=== PATIENT | female | born 1935 | race Caucasian/White ===

== ENCOUNTER 2021-09-26 09:03 | Outpatient (CLI) | payer OTHER, SELFPAY ==
[2021-09-26 10:24] LABS: Influenza A QL RT-PCR Negative (Negative); Influenza B QL RT-PCR Negative (Negative); SARS-CoV-2 RNA PCR Negative (Negative)
== END 2021-09-26 09:04 | disposition home or self-care (01) ==
LOC: CHSLAB 09:07
PROVIDERS: PCP Internal Medicine; Visit Provider Internal Medicine
DX: R68.89 Other general symptoms and signs (principal); Z20.822 Contact with and (suspected) exposure to COVID-19
CPT/HCPCS: 87502; C9803; U0003; U0005

== ENCOUNTER 2021-11-08 09:36 | Emergency (ER) | payer OTHER, SELFPAY ==
[2021-11-08] VITALS (51 sets, daily range): BP systolic 151–194; BP diastolic 61–86; PULSE 63–90; RESP 14–34; TEMP 36.3; O2SAT 95–100
--- NOTE | ~2021-11-08 | XR_ITS ---
EXAMINATION: XR chest 1V portable DATE: 11/08/2021 10:08 INDICATION: Stroke. TECHNIQUE: A single frontal view of the chest was obtained on 2 radiographs. COMPARISON: Chest single view 12/06/2018, CT abdomen and pelvis 07/01/2014 FINDINGS: There is mild scarring in left midlung zone. No pleural effusion or pneumothorax. The heart size is normal. Median sternotomy wires and mediastinal surgical clips are seen, likely from prior c oronary artery bypass grafting. IMPRESSION: 1. Mild scarring in left midlung zone. Reviewed, dictated and finalized at location A.
--- NOTE | ~2021-11-08 | CT_ITS ---
EXAMINATION: CT brain wo con DATE: 11/08/2021 09:44 INDICATION: Stroke. TECHNIQUE: Computed tomography (CT) of the head was performed without intravenous contrast. The mA wa s adjusted according to patient size. Iterative reconstruction technique was employed. The dose-lengt h product was 605.33 mGy-cm. COMPARISON: Head CT 12/06/2018 FINDINGS: There are scattered areas of low attenuation in the cerebral white matter. There is no intr acranial hemorrhage, acute infarction, or abnormal intracranial mass lesion. The ventricles are nathan l in size. There is mucosal thickening in the paranasal sinuses. There is thickening and sclerosis of the adams of left frontal sinus, consistent with chronic sinusitis. There are likely changes of ocul ar lens replacement surgeries. The mastoid air cells are normal. IMPRESSION: 1. Worsened extensive nonspecific cerebral white matter disease, which likely represents chronic smal l vessel ischemic disease. 2. Chronic sinusitis. Reviewed, dictated and finalized at location A. IMPRESSION: 1. Worsened extensive nonspecific cerebral white matter disease, which likely r epresents chronic small vessel ischemic disease. 2. Chronic sinusitis.
--- NOTE | 2021-11-08 09:36 | ECG_ITS ---
Measurements Intervals [place] Rate: 73 P: 68 NH: 191 QRS: -29 QRSD: 148 T: 122 QT: 474 QTc: 524 Interpretive Statements SINUS RHYTHM WITH OCCASIONAL SUPRAVENTRICULAR PREMATURE COMPLEXES LEFT BUNDLE BRANCH BLOCK ABNORMAL ECG COMPARED TO ECG 12/07/2018 10:20:42 HEART RATE HAS INCREASED Electronically Signed On 11-08-2021 12:50:12 CDT by Marlo Marroquin M.D.
[2021-11-08 10:00] LABS: Basophils Absolute Auto 0.1 K/mm3 (0.0-0.1); Basophils Percent Auto 0.7 % (0.2-1.2); Eosinophils Absolute Auto 0.1 K/mm3 (0-0.3); Eosinophils Percent Auto 1.5 % (0-4.4); Hematocrit 45.1 % (37.0-47.0); Hemoglobin 14.9 g/dL (12.0-15.0); Immature Granulocyte Absolute 0.01 K/mm3 (0.00-0.031); Immature Granulocyte Percent A 0.1 % (0-0.5); Lymphocytes Absolute Auto 2.06 K/mm3 (0.9-3.2); Lymphocytes Percent Auto 28.2 % (18.3-44.2); Mean Corpuscular Hemoglobin 30.8 pg (26-34); Mean Corpuscular Volume 93.2 fl (80-100); Mean Platelet Volume 9.7 fl (7.4-10.4); Monocytes Absolute Auto 0.8 K/mm3 (0.1-0.6); Monocytes Percent Auto 11.4 % (2.6-8.5); Neutrophils Absolute Auto 4.3 K/mm3 (1.3-6.7); Neutrophils Percent Auto 58.1 % (45.5-73.1); Platelet Count Result 247 k/mm3 (150-375); Red Blood Count 4.84 M/mm3 (4.2-5.4); Red Cell Distribution Width 13.3 % (11.5-14.5); White Blood Count 7.3 K/mm3 (4.5-10.0)
--- NOTE | 2021-11-08 10:03 | ED.NEUROSD ---
HPI - Neuro Symptoms/Deficit General Chief Complaint: Suspected CVA Stated Complaint: ?cva Source: RN notes reviewed History of Present Illness HPI Narrative: Patient presents emergency department from home for possible CVA. Patient states that she is getting ready to go eat with her sister and go shopping she states at that time she began develop some loss of vision over the left side she states that she then got numbness around her lips and then began to have shaking at that time she had looked up her symptoms and called EMS to transport her for further evaluation. The patient states that this time the vision has resolved and the numbness is resolved she denies any numbness or weakness of any of the extremities she still does have a mild stutter which she says is new she denies any fevers or chills chest pain shortness of breath abdominal pain nausea or vomiting. The patient states she is on aspirin and Plavix and did take it this morning does live by herself she states that symptoms started sometime between 730 and 8 AM Related Data Home Medications Medication Instructions Recorded Confirmed irbesartan 300 mg tablet 300 mg PO DAILY 02/20/19 03/09/21 Allergies Allergy/AdvReac Type Severity Reaction Status Date / Time oxycodone Allergy Mild NIGHTMARES Verified 11/08/21 10:27 Review of Systems Review of Systems: Gen.: Denies fevers or chills Eyes: See HPI ENT: Denies congestion Respiratory: Denies shortness of breath or cough CV: Denies chest pain or palpitations GI: Denies abdominal pain nausea, emesis or diarrhea Musculoskeletal: Denies back pain or muscle pain Neuro: See HPI Skin: Denies rash Except as documented, all other systems reviewed and negative [facility] Past Medical History Medical History Hyperlipidemia Family History Family History Sibling Patient's sister is in good health Family history of malignant melanoma Other Hypertension Social History Social History Smoking status: Never smoker Alcohol intake: never Substance use: never Exam Narrative: APPEARANCE: No acute distress, nontoxic, resting in bed HEENT: Normocephalic, atraumatic, OMM, EYES: PERRL, EOMI visual celeste intact NECK: Supple, nontender, full range of motion without pain, no meningismus RESPIRATORY: No respiratory distress, clear to auscultation bilaterally with no rhonchi wheezing or rales CARDIOVASCULAR: RRR s murmur ABDOMINAL: Soft, nontender, nondistended MUSCULOSKELETAL: Moves all extremities. No clubbing, cyanosis or edema. NEURO: A and O ?4, following commands, mild stutter but otherwise no slurring of the speech, cranial nerves II through XII grossly intact,muscle strength 5 out of 5 bilateral upper and lower extremities, no pronator drift, SKIN:: Warm, dry. Normal Color PSYCHIATRIC: Normal affect/mood Course Course Emergency Course: Patient will get up and ambulate to the restroom with no difficulty Called and discussed with Dr. Villatoro for neurology at [facility]. Discussed the patient's symptoms at this time in agreement that the patient is not a tPA candidate as the patient is on aspirin and Plavix and symptoms of almost completely resolved except for nondebilitating symptom of mild stutter with speaking. Does accept patient to [facility] under Dr. Spain Care will be turned over to Dr. Kumar at shift change awaiting bed placement at [facility] Vital Signs Vital signs: Vital Signs Temperature 97.3 F L 11/08/21 09:54 Pulse Rate 73 11/08/21 09:54 Respiratory Rate 18 11/08/21 09:54 Blood Pressure 194/80 H 11/08/21 09:54 Pulse Oximetry 100 11/08/21 09:54 Oxygen Delivery Room Air 11/08/21 09:54 Temperature 97.3 F L 11/08/21 09:54 Pulse Rate 69 11/08/21 15:45 Respiratory Rate 21 H 11/08/21 15:45 Bloo
[2021-11-08 10:13] LABS: Alanine Aminotransferase 20 U/L (6-35); Albumin Level 4.9 g/dL (3.5-5.1); Alkaline Phosphatase 128 U/L (38-126); Anion Gap 10 mmol/L (8-16); Aspartate Amino Transferase 29 U/L (14-36); Bilirubin,Total 0.9 mg/dL (0.2-1.3); Blood Urea Nitrogen 30 mg/dL (7-17); Calcium 9.8 mg/dL (8.4-10.2); Carbon Dioxide 27 mmol/L (22-30); Chloride 102 mmol/L (98-107); Estimated CRCL calculation 27 ml/min; Estimated Glomerular Filt Rate 36; Glucose 125 mg/dL (65-110); Potassium 4.8 mmol/L (3.4-5.0); Prothrombin Time 12.6 Seconds (11.1-14.7); Sodium 139 mmol/L (137-145)
[2021-11-08 10:14] LABS: Partial Thromboplastin Time 31.4 SECONDS (22.3-36.8)
[2021-11-08 10:23] LABS: Troponin I < 0.012 ng/mL (0.000-0.034)
--- NOTE | 2021-11-08 10:23 | PC.NURSE ---
Dr. Santana at bedside to update patient and family on results and plan of care.
--- NOTE | 2021-11-08 10:47 | PC.NURSE ---
Patient information provided to [facility]. Requesting COVID result. Will call back with results. ext. [phone]
[2021-11-08 11:13] LABS: NT Pro B Type Natriuretic Pept 1570 pg/mL (5-100)
[2021-11-08 11:20] LABS: SARS-CoV-2 RNA PCR Negative
--- NOTE | 2021-11-08 11:22 | PC.NURSE ---
Patient report given to NOELLE Vega. All questions answered and care of patient transferred.
--- NOTE | 2021-11-08 22:53 | PC.NURSE ---
RN spoke with Access [facility] no beds at this time. Update with any patient status changes. Will call with any updates.
[2021-11-09] VITALS (18 sets, daily range): BP systolic 146–155; BP diastolic 63–73; PULSE 55–84; RESP 13–20; TEMP 36.6; O2SAT 94–99
--- NOTE | 2021-11-09 05:27 | PC.NURSE ---
[facility] here.
== END 2021-11-09 05:33 | disposition short-term general hospital (02) ==
PROVIDERS: Emergency Provider Emergency Medicine; PCP Family Medicine
DX: I63.9 Cerebral infarction, unspecified (principal); Z20.822 Contact with and (suspected) exposure to COVID-19; E78.5 Hyperlipidemia, unspecified; R94.31 Abnormal electrocardiogram [ECG] [EKG]; R29.701 NIHSS score 1; Z79.02 Long term (current) use of antithrombotics/antiplatelets
CPT/HCPCS: 36415; 70450; 71045; 80053; 83880; 84484; 85025; 85610; 85730; 93005; 99285; C9803; U0003; U0005

== ENCOUNTER 2022-10-22 03:03 | Day surgery (SDC) | payer OTHER, SELFPAY ==
[2022-10-22] VITALS (9 sets, daily range): BP systolic 147–179; BP diastolic 43–70; PULSE 43–60; RESP 16–20; TEMP 36.6; O2SAT 93–99; BMI 28.8
[2022-10-22 08:37] LABS: Basophils Percent Auto 0.5 % (0.2-1.2); Eosinophils Absolute Auto 0.2 K/mm3 (0-0.3); Eosinophils Percent Auto 1.9 % (0-4.4); Hematocrit 44.1 % (37.0-47.0); Hemoglobin 14.3 g/dL (12.0-15.0); Immature Granulocyte Absolute 0.02 K/mm3 (0.00-0.031); Immature Granulocyte Percent A 0.2 % (0-0.5); Lymphocytes Percent Auto 20.5 % (18.3-44.2); Mean Corpuscular HGB Conc 32.4 g/dl (32-36); Mean Corpuscular Hemoglobin 30.3 pg (26-34); Mean Corpuscular Volume 93.4 fl (80-100); Mean Platelet Volume 10.1 fl (7.4-10.4); Monocytes Percent Auto 10.9 % (2.6-8.5); Neutrophils Absolute Auto 5.8 K/mm3 (1.3-6.7); Platelet Count Result 280 k/mm3 (150-375); Red Blood Count 4.72 M/mm3 (4.2-5.4); Red Cell Distribution Width 13.5 % (11.5-14.5); White Blood Count 8.8 K/mm3 (4.5-10.0)
[2022-10-22 08:47] LABS: Anion Gap 8 mmol/L (8-16); Blood Urea Nitrogen 32 mg/dL (7-17); Calcium 9.8 mg/dL (8.4-10.2); Carbon Dioxide 28 mmol/L (22-30); Chloride 105 mmol/L (98-107); Estimated CRCL calculation 24 ml/min; Estimated Glomerular Filt Rate 33; Glucose 116 mg/dL (65-110); Potassium 3.9 mmol/L (3.4-5.0); Sodium 141 mmol/L (137-145)
--- NOTE | 2022-10-22 09:20 | SUR.PREOP ---
DR. RICHARD HERE TO SEE PT PRE PROCEDURE. NOTIFIED HIM OF CREAT LEVEL. . TO BEDSIDE TO SEE PT AND FAMILY.
--- NOTE | 2022-10-22 09:32 | WPDMODSED ---
Moderate Sedation Note-Pt Data Patient Data Diagnosis: exertional shortness of breath abnormal nuclear stress test previous surgery for hypertrophic cardiomyopathy Present Complaint: PATRICK Procedure to be performed/Plan: left heart catheterization Allergies Allergy/AdvReac Type Severity Reaction Status Date / Time acetaminophen [From Percocet] AdvReac Hallucinati Verified 10/22/22 08:29 ng oxycodone [From Percocet] AdvReac Hallucinati Verified 10/22/22 08:29 ng Home Medications Medication Instructions Recorded Confirmed Type aspirin 81 mg tablet,delayed 81 mg PO DAILY 11/16/21 10/22/22 History release (Adult Low Dose Aspirin) amlodipine 10 mg tablet See Rx Instructions .Route 07/09/22 10/22/22 Rx .COMPLEX #90 tabs clopidogrel 75 mg tablet 75 mg PO DAILY #90 tabs 07/09/22 10/22/22 Rx pravastatin 20 mg tablet 20 mg PO DAILY #90 tabs 07/09/22 10/22/22 Rx triamcinolone acetonide 0.1 % 1 applic topical BID #80 grams 09/25/22 10/19/22 Rx topical cream metoprolol tartrate 50 mg tablet 50 mg PO DAILY 10/19/22 10/22/22 History Current Medications: Active Medications Sodium Chloride (Normal Saline Iv) 500 mls @ 100 mls/hr IV CONT .Q5H KAYLENE Sedation/Anesthesia: No previous sedation/anesthesia problems (including family history). [facility] Past Medical History Medical History CVA (cerebral vascular accident) Hyperlipidemia Family History Family History Sibling Patient's sister is in good health Family history of malignant melanoma Other Hypertension Social History Social History Social History: Caffeine-occasional coffee/soda Smoking status: Never smoker Alcohol intake: never Substance use: never Substance use type: does not use Lack of Transportation: No Lack of Food: Never True Current Housing: I Have Housing Concerned About Future Housing: No Difficulty Paying Gas/Electric Bills: No Difficulty Paying for Meds: No Currently Unemployed: No Education: Associate Degree Difficulty w/ Childcare or Family Care: No Living arrangements: alone Spiritual care concerns: No Mod Sed Physical Exam Physical Exam Pre Procedural Exam: Normal: Appearance, Neck, Throat, Airway, Lungs, Heart Size ( S4 gallop is audible), Heart Rate, Heart Rhythm, Neuro Exam and Extremities Hours since solid foods: 12 Hours since liquid intake: 12 Mallampati Classification: class II Internal Medicine - PN: Obj Da Vital Signs Vital Signs: Vital Signs - 24 hr 10/22/22 08:49 Temperature 36.6 C Pulse Rate 56 L Respiratory Rate 16 Blood Pressure 179/64 H Pulse Oximetry 98 Oxygen Delivery Room Air Meds/Results Medications: Active Medications Generic Name Dose Route Start Last Admin Trade Name Freq PRN Reason Stop Dose Admin Sodium Chloride 500 mls @ 100 mls/hr 10/22/22 08:30 Normal Saline Iv IV CONT .Q5H KAYLENE Labs 10/22/22 08:28 10/22/22 08:28 Labs: Laboratory Results - last 24 hr 10/22/22 08:28 WBC 8.8 RBC 4.72 Hgb 14.3 Hct 44.1 MCV 93.4 MCH 30.3 MCHC 32.4 RDW 13.5 Plt Count 280 MPV 10.1 Immature Gran % (Auto) 0.2 Neut % (Auto) 66.0 Lymph % (Auto) 20.5 [place]oux % (Auto) 10.9 H Eos % (Auto) 1.9 Baso % (Auto) 0.5 Lymph # (Auto) 1.80 [place] # (Auto) 1.0 H Eos # (Auto) 0.2 Baso # (Auto) 0.0 Abs Immat Gran (auto) 0.02 Absolute Neuts (auto) 5.8 Absolute Nucleated RBC 0.0 Nucleated RBC % 0.0 Sodium 141 Potassium 3.9 Chloride 105 Carbon Dioxide 28 Anion Gap 8 BUN 32 H Creatinine 1.50 H Estim Creat Clear Calc 24 Estimated GFR 33 L Glucose 116 H Calcium 9.8 ASA Classification/Sedation ASA Classification/Sedation ASA Class: II Emergent: No Risks: Risks, benefits and alternatives explained and patient/f
--- NOTE | 2022-10-22 10:24 | P.PCNCC_ITS ---
Cardiac Cath Procedure Note Date of procedure:: 10/22/22 Performing physician:: Junior Gaviria MD Indication:: Exertional shortness of breath abnormal stress test Brief clinical history:: this is an 86-year-old woman with complaints of exertional shortness of breath. A recent nuclear stress test has demonstrated evidence of anterior ischemia. She has a history of previous septal myectomy and coronary bypass. She has been doing very well clinically. A follow-up catheterization previously done back in 2009 demonstrated no evidence of coronary disease and a occluded graft to the LAD. Procedure Procedure performed:: Left ventriculogram coronary angiogram Angio-Seal to right femoral artery Sedation/Medication given:: fentanyl 25 mg Versed 2 mg case start time 10:00 a.m. case end time 10:16 a.m. sedation provided by Crys Renner RN, trained observer Access site:: right femoral artery Estimated blood loss:: 25 cc Procedure note:: patient was brought to the cardiac catheterization lab postabsorptive state where the right femoral triangle was prepared and draped in the usual fashion. Anesthesia was provided with 1% lidocaine infiltrated locally. Using the modified Seldinger technique 5 Malagasy sheath was placed into the right common femoral artery. After this left heart catheterization was carried out. I used a 5 Malagasy angled pigtail catheter to measure left-sided hemodynamics and inject LV g in the 30 degree MAN projection. A careful pullback was done into the aorta to assess for LVOT gradient. Following this the left coronary was engaged and injected using a 5 Malagasy FL4 catheter the right coronary was engaged and injected using a standard 5 Malagasy JR4 catheter. The vein graft to the LAD is known to be totally occluded from previous angiogram and was not reinjected during this exam. Findings:: Hemodynamics: Central aortic pressure is 166 over 50 left ventricle 166/10 end-diastolic 26. Pullback demonstrated no gradient from the LV body to the aorta Left ventricle: The LV is of normal size all segments contract well there were no regional wall motion abnormalities and global ejection fraction is 60- 65%. the left main coronary artery is nicely patent the left anterior descending is a medium caliber artery extending down to around the apex. The LAD has free of significant disease. The remnant of a previously placed graft to seen in the mid LAD with some mild back filling from the LAD into the distal portion of the graft there was no competitive flow from the graft as it is known to be occluded from previous angiography. The circumflex is a medium caliber artery giving rise to the marginal branches and a posterior branch the circumflex is angiographically free of disease. The right coronary artery is large caliber and dominant to the posterior circulation the right coronary artery is angiographically free of disease. Conclusion:: 1. Right coronary dominant circulation with no angiographic evidence of ischemic heart disease. 2. Previously placed vein graft to the LAD is once again noted however is known to be occluded on previous angiography. The distal stump of this can be seen on left coronary injection 3. normal left ventricular systolic function 4. systemic hypertension 5. false-positive nuclear stress test Junior Garcia MD [facility]
== END 2022-10-22 13:45 | disposition home or self-care (01) ==
PROVIDERS: PCP Family Medicine; Visit Provider Specialist
PROC: 4A023N7 Measurement of Cardiac Sampling and Pressure, Left Heart, Percutaneous Approach (ICD-10-PCS; CPT 93452; principal; 2022-10-22 10:00)
DX: R94.39 Abnormal result of other cardiovascular function study (principal); R06.02 Shortness of breath; I25.10 Atherosclerotic heart disease of native coronary artery without angina pectoris; I10 Essential (primary) hypertension; Z86.73 Personal history of transient ischemic attack (TIA), and cerebral infarction without residual deficits; E78.5 Hyperlipidemia, unspecified; Z79.82 Long term (current) use of aspirin; I42.1 Obstructive hypertrophic cardiomyopathy; Z79.02 Long term (current) use of antithrombotics/antiplatelets; Z95.1 Presence of aortocoronary bypass graft
CPT/HCPCS: 36415; 80048; 85025; 93458; C1760; C1887; C1894; G0269; J1644; J2250; J3010; J7040

== ENCOUNTER 2022-12-28 09:31 | Emergency (ER) | payer OTHER, SELFPAY ==
[2022-12-28] VITALS (8 sets, daily range): BP systolic 110–167; BP diastolic 46–89; PULSE 60–99; RESP 15–20; TEMP 36.5–36.7; O2SAT 96–100
--- NOTE | ~2022-12-28 | CT_ITS ---
EXAMINATION: CT abdomen pelvis w con INDICATION: Left lower quadrant and left hip pain TECHNIQUE: Computed tomographic images of the abdomen and pelvis were obtained after the administrati on of 100 cc of Omnipaque 350 intravenous contrast. The dose-length product (DLP) was 391.32 mGy-cm. Automated exposure control and iterative reconstruction technique were employed. COMPARISON: 07/01/2014 FINDINGS: There is mild atelectasis of the visualized lung bases. Cardiomegaly is noted. There is a s mall sliding hiatal hernia. The liver is diffusely low in attenuation when compared with the spleen, consistent with hepatic steatosis. The spleen, pancreas, gallbladder, and adrenal glands are normal. Cysts of the left kidney measure up to 4 cm. There are areas of cortical scarring in both kidneys. No pathologically enlarged abdominal or pelvic lymph nodes are identified. No free intraperitoneal gas or evidence of bowel obstruction. Colonic diverticulosis is present without evidence of diverticuliti s. There is moderate to severe lumbar spondylosis. IMPRESSION: 1. No CT correlate for the patient's symptoms. Reviewed, dictated and finalized at location B.
--- NOTE | 2022-12-28 11:46 | ED.GENADULT ---
HPI - General Adult General Chief complaint: Unspecified Stated complaint: buttock pain History of Present Illness HPI narrative: 87-year-old female presented emergency department for evaluation of left hip and left lower quadrant abdominal pain. Patient states that symptoms started yesterday and are worse with ambulation. Patient denies any recent falls or injuries. Patient denies any radiation of the pain down her leg. Related Data Home Medications Medication Instructions Recorded Confirmed aspirin 81 mg tablet,delayed 81 mg PO DAILY 11/16/21 11/01/22 release (Adult Low Dose Aspirin) metoprolol tartrate 50 mg tablet 50 mg PO DAILY 10/19/22 11/01/22 Allergies Allergy/AdvReac Type Severity Reaction Status Date / Time acetaminophen [From Percocet] AdvReac Hallucinati Verified 12/28/22 09:39 ng oxycodone [From Percocet] AdvReac Hallucinati Verified 12/28/22 09:39 ng Review of Systems Review of Systems: All systems reviewed & are unremarkable except as noted in HPI and below PMFSH Past Medical History Medical History CVA (cerebral vascular accident) Hyperlipidemia Family History Family History Sibling Patient's sister is in good health Family history of malignant melanoma Other Hypertension Social History Social History Social History: Caffeine-occasional coffee/soda Smoking status: Never smoker Alcohol intake: never Substance use: never Substance use type: does not use Lack of Transportation: No Lack of Food: Never True Current Housing: I Have Housing Concerned About Future Housing: No Difficulty Paying Gas/Electric Bills: No Difficulty Paying for Meds: No Currently Unemployed: No Education: Associate Degree Difficulty w/ Childcare or Family Care: No Living arrangements: alone Spiritual care concerns: No Exam Narrative: APPEARANCE: Well appearing, no pain, no distress, well-nourished. HEAD: normocephalic, atraumatic. EYES: PERRLA/EOMI, conjunctivae clear. NOSE: Normal no drainage NECK: Supple. No adenopathy, no masses. RESPIRATORY: Airway patent, respirations nonlabored. Clear to auscultation bilaterally, no rales, rhonchi, wheezing. CARDIOVASCULAR: Regular rate and rhythm without murmurs rubs or gallops. ABDOMINAL: Soft, left lower quadrant and left hip tenderness to palpation MUSCULOSKELETAL: Moves all extremities. Strength/ROM intact, No edema, No calf tenderness. NEURO: Alert. Cranial nerves II through XII intact. Grossly intact SKIN: Warm, dry. Normal Color Course Course Emergency Course: 87-year-old female presented the ED for evaluation of left hip pain. Patient is afebrile with no leukocytosis and a stable hemoglobin. Patient's creatinine was similar to her baseline. Patient had no significant abnormalities on her CMP. No evidence of urinary tract infection. CT scan showed nothing to correlate with the patient's symptoms. Initial concern was for sciatica but patient had abdominal tenderness to palpation. Vital Signs Vital signs: Vital Signs Temperature 98.0 F 12/28/22 09:32 Pulse Rate 69 12/28/22 09:32 Respiratory Rate 18 12/28/22 09:32 Blood Pressure 167/53 H 12/28/22 09:32 Pulse Oximetry 98 12/28/22 09:32 Oxygen Delivery Room Air 12/28/22 09:32 Temperature 97.7 F 12/28/22 15:30 Pulse Rate 80 12/28/22 15:30 Respiratory Rate 16 12/28/22 15:30 Blood Pressure 125/73 12/28/22 15:30 Pulse Oximetry 98 12/28/22 15:30 Oxygen Delivery Room Air 12/28/22 09:32 Medical Decision Making Vital Signs Vital Signs: Vital Signs Temperature 98.0 F 12/28/22 09:32 Pulse Rate 69 12/28/22 09:32 Respiratory Rate 18 12/28/22 09:32 Blood Pressure 167/53 H 12/28/22 09:32 Pulse Oximetry 98 12/28/22 09:32 Oxygen Delivery
[2022-12-28 12:36] LABS: Appearance Urine Clear (Clear); Bacteria Urine None Seen /hpf; Bilirubin Urine Negative (Negative); Blood Urine Negative (Negative); Color Urine Yellow (Yellow); Glucose Urine UA Negative (Negative); Ketones Urine Negative (Negative); Leukocyte Esterase Ur Negative LEU/UL (Negative); Nitrate Urine Negative (Negative); Non Pathogenic Casts 0-2; Protein Urine 1+ mg/dL (Negative); RBC Urine 0-2 /hpf (0-2); Specific Grav Ur 1.012 (1.001-1.035); Squamous Epithelial Cell Urine Moderate /hpf (Few); Urobilinogen Urine 0.2 mg/dL (<2.0); WBC Urine 0-5 /hpf; pH Urine 7.5 (5.0-9.0)
[2022-12-28 12:44] LABS: Add Urine Microscopic? YES; Basophils Percent Auto 0.5 % (0.2-1.2); Eosinophils Percent Auto 0.3 % (0-4.4); Hematocrit 41.6 % (37.0-47.0); Hemoglobin 14.2 g/dL (12.0-15.0); Immature Granulocyte Absolute 0.04 K/mm3 (0.00-0.031); Immature Granulocyte Percent A 0.5 % (0-0.5); Lymphocytes Absolute Auto 1.31 K/mm3 (0.9-3.2); Lymphocytes Percent Auto 17.9 % (18.3-44.2); Mean Corpuscular HGB Conc 34.1 g/dl (32-36); Mean Corpuscular Hemoglobin 31.5 pg (26-34); Mean Corpuscular Volume 92.2 fl (80-100); Mean Platelet Volume 10.8 fl (7.4-10.4); Monocytes Absolute Auto 0.6 K/mm3 (0.1-0.6); Monocytes Percent Auto 8.5 % (2.6-8.5); Neutrophils Absolute Auto 5.3 K/mm3 (1.3-6.7); Neutrophils Percent Auto 72.3 % (45.5-73.1); Platelet Count Result 279 k/mm3 (150-375); Red Blood Count 4.51 M/mm3 (4.2-5.4); Red Cell Distribution Width 13.4 % (11.5-14.5); White Blood Count 7.3 K/mm3 (4.5-10.0)
[2022-12-28 12:54] LABS: INR 1.1; Prothrombin Time 14.3 Seconds (11.1-14.7)
[2022-12-28 12:55] LABS: Partial Thromboplastin Time 30.2 SECONDS (22.3-36.8)
[2022-12-28 13:38] LABS: Alanine Aminotransferase 19 U/L (6-35); Albumin Level 4.2 g/dL (3.5-5.1); Alkaline Phosphatase 81 U/L (38-126); Anion Gap 5 mmol/L (8-16); Aspartate Amino Transferase 33 U/L (14-36); Bilirubin,Total 1.1 mg/dL (0.2-1.3); Blood Urea Nitrogen 28 mg/dL (7-17); Calcium 9.5 mg/dL (8.4-10.2); Carbon Dioxide 29 mmol/L (22-30); Chloride 104 mmol/L (98-107); Estimated CRCL calculation 29 ml/min; Estimated Glomerular Filt Rate 43; Glucose 111 mg/dL (65-110); Sodium 138 mmol/L (137-145)
== END 2022-12-28 15:53 | disposition home or self-care (01) ==
PROVIDERS: Emergency Provider Emergency Medicine; PCP Family Medicine
DX: M54.32 Sciatica, left side (principal); M25.552 Pain in left hip; R10.32 Left lower quadrant pain; E78.5 Hyperlipidemia, unspecified; Z86.73 Personal history of transient ischemic attack (TIA), and cerebral infarction without residual deficits
CPT/HCPCS: 36415; 74177; 80053; 81001; 85025; 85610; 85730; 99284; Q9967

== ENCOUNTER → 2023-04-11 14:19 | Outpatient (CLI) | payer OTHER, SELFPAY ==
--- NOTE | ~2023-04-11 | XR_ITS ---
XR knee RT min 4V DATE: 04/11/2023 14:40 INDICATION: Right knee pain. No injury. TECHNIQUE: [place], standing AP, PA and lateral views COMPARISON: None FINDINGS: There is severe medial compartment joint space narrowing with bone on bone and mild lateral periarticular spurring. There is mild medial and patellofemoral compartment periarticular spurring. There is superior pole patellar enthesopathy. No fracture, dislocation or joint effusion. No periosteal reaction or bone destruction. No radiopaqu e intraarticular loose body. No chondrocalcinosis. 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 CIATE JAVA DEVELOPER
--- NOTE | ~2023-04-11 | XR_ITS ---
XR shoulder LT min 2V DATE: 04/11/2023 14:40 INDICATION: Left shoulder pain, no injury TECHNIQUE: 4 views COMPARISON: None FINDINGS: Status post sternotomy and coronary bypass graft surgery. Aortic arch calcification. Diffuse osteopenia. There is mild degenerative change at the acromioclavicular and glenohumeral joints of the left should er. No fracture or dislocation, periosteal reaction or bone destruction or abnormal soft tissue calci fication is detected. IMPRESSION: Osteopenia Mild degenerative change at the acromioclavicular and glenohumeral joints Reviewed, dictated and finalized at location L. TORCH BRAZIER
== END ==
PROVIDERS: PCP Family Medicine; Visit Provider Family Medicine
DX: M17.11 Unilateral primary osteoarthritis, right knee (principal); M19.012 Primary osteoarthritis, left shoulder; M85.80 Other specified disorders of bone density and structure, unspecified site
CPT/HCPCS: 73030; 73564

== ENCOUNTER 2023-05-13 12:33 | Outpatient (CLI) | payer OTHER, SELFPAY ==
--- NOTE | ~2023-05-13 | MMUS_ITS ---
EXAMINATION: MM diagnostic lv BI w mayra, US breast RT limited HISTORY: Palpable mass of the inner right breast and overdue follow-up for probably benign right omaira st architectural distortion TECHNIQUE: Craniocaudal, mediolateral, and mediolateral oblique 3-D tomosynthesis images of the breas ts were performed and synthetic 2-D images were generated. CAD analysis was submitted and interpreted . High resolution limited right breast ultrasound was performed. COMPARISON: 04/10/2019, 03/18/2019, 01/23/2017 BREAST PARENCHYMAL COMPOSITION: The breasts are heterogeneously dense, which may obscure small masses . FINDINGS: MAMMOGRAPHIC FINDINGS: Left breast: No suspicious mass, calcification, or architectural distortion are identified to suggest malignancy. There has been no suspicious interval change. Right breast: The previously described architectural distortion of the far posterior third of the out er breast is not significantly changed since the 2019 comparison. There is a 1.8 cm irregular, high d ensity mass with indistinct margins at the 2:00 location, 4 cm from the nipple corresponding to the p alpable abnormality of concern. ULTRASOUND: There is a 1.9 x 1.6 cm hypoechoic, not parallel, irregular mass with microlobulated margins, posteri or acoustic enhancement, and marked internal vascularity at the 2:00 location, 5 cm from the nipple c orresponding to the palpable abnormality of concern. IMPRESSION: 1. Suspicious right breast mass. 2. Ultrasound-guided biopsy is recommended. BI-RADS category 5, highly suggestive of malignancy. Reviewed, dictated and finalized at location A. ASSOCIATE IMPRESSION: 1. Suspicious right breast mass. 2. Ultrasound-guided biopsy is recommended. BI-RADS category 5, highly suggestive of malignancy.
== END 2023-05-13 12:34 | disposition home or self-care (01) ==
LOC: ANHIMG 12:35
PROVIDERS: PCP Family Medicine; Visit Provider Family Medicine
DX: R92.8 Other abnormal and inconclusive findings on diagnostic imaging of breast (principal); N63.12 Unspecified lump in the right breast, upper inner quadrant; N63.14 Unspecified lump in the right breast, lower inner quadrant
CPT/HCPCS: 76642; 77062; 77066; G0279

== ENCOUNTER 2023-05-30 08:57 | Outpatient (CLI) | payer OTHER, SELFPAY ==
--- NOTE | ~2023-05-30 | MMUS_ITS ---
MM post biopsy invasive RT, US breast biopsy RT w image EXAMINATION: US GUIDED NEEDLE BIOPSY WITH VACUUM ASSISTANCE DATE: 05/30/2023 10:26 SORT MANAGER INDICATION: Right breast mass seen on prior examination. Ultrasound-guided core biopsy is requested to evaluate for malignancy. TECHNIQUE AND FINDINGS: The risks and potential benefits of the procedure were discussed with the patient, and written inform ed consent was obtained. After sterile preparation of the right breast, 1% lidocaine was utilized fo r local anesthesia. 1% lidocaine with epinephrine was used for deep anesthesia. A 10G vacuum-assisted biopsy gun needle was advanced through to the outer edge of the region of inter est from a superior approach utilizing sonographic guidance. A total of 4 tissue core samples were o btained through the lesion. An Inrad tissue marker clip was then placed at the biopsy site. Hemostas is was achieved. The patient tolerated procedure well and there was no evidence of immediate complication. The patien t was given verbal instructions partly is from the department. Right breast mammograms to document t issue marker clip placement. The tissue samples were submitted to surgical pathology for histologic a nalysis. IMPRESSION: 1. Successful ultrasound-guided vacuum-assisted biopsy of right breast mass with tissue marker place ment. Please refer to pathology report for histologic analysis. Reviewed, dictated and finalized at location A. MANAGER IMPRESSION: 1. Successful ultrasound-guided vacuum-assisted biopsy of right breast mass wi th tissue marker placement. Please refer to pathology report for histologic louie lysis.
== END 2023-05-30 08:58 | disposition home or self-care (01) ==
LOC: ANHIMG 08:59
PROVIDERS: PCP Family Medicine; Visit Provider Family Medicine
DX: D24.1 Benign neoplasm of right breast (principal); N63.10 Unspecified lump in the right breast, unspecified quadrant; R92.8 Other abnormal and inconclusive findings on diagnostic imaging of breast
CPT/HCPCS: 19083; 88305; A4648

== ENCOUNTER 2023-07-04 09:21 | Outpatient (CLI) | payer OTHER, SELFPAY ==
--- NOTE | 2023-07-04 09:38 | ECG_ITS ---
Measurements Intervals [place] Rate: 38 P: 78 [place]: 192 QRS: 5 QRSD: 155 T: 145 QT: 558 QTc: 449 Interpretive Statements SINUS BRADYCARDIA LEFT BUNDLE BRANCH BLOCK BASELINE ARTIFACT- I, II, III, AVR, AVL, AVF, V2-V6 ABNORMAL ECG COMPARED TO ECG 11/08/2021 10:00:33 SINUS BRADYCARDIA NOW PRESENT Electronically Signed On 07-04-2023 10:11:18 CDT by Brad Santiago D.O.
[2023-07-04 10:16] LABS: INR 0.9; Prothrombin Time 12.6 Seconds (11.1-14.7)
[2023-07-04 10:17] LABS: Anion Gap 6 mmol/L (4-12); Blood Urea Nitrogen 34 mg/dL (7-17); Calcium 10.2 mg/dL (8.4-10.2); Carbon Dioxide 30 mmol/L (22-30); Chloride 104 mmol/L (98-107); Estimated Glomerular Filt Rate 22; Glucose 117 mg/dL (65-110); Partial Thromboplastin Time 30.2 Seconds (22.3-36.8); Potassium 4.1 mmol/L (3.4-5.0); Sodium 140 mmol/L (137-145)
== END 2023-07-04 09:22 | disposition home or self-care (01) ==
LOC: ANHSURGERY 09:25
PROVIDERS: Anesthesiology; PCP Family Medicine; Visit Provider Surgery
DX: Z01.818 Encounter for other preprocedural examination (principal); I10 Essential (primary) hypertension; N18.30 Chronic kidney disease, stage 3 unspecified; R94.31 Abnormal electrocardiogram [ECG] [EKG]; R00.1 Bradycardia, unspecified
CPT/HCPCS: 36415; 80048; 85610; 85730; 93005

== ENCOUNTER 2023-07-10 01:24 | Day surgery (SDC) | payer OTHER, SELFPAY ==
--- NOTE | 2023-07-01 13:36 | PC.NURSE ---
Report to the Outpatient Waiting Room, entrance under the green pavilion located off [facility], at time __0600 on date __07/10/23 . Planned Procedure Time: _0730 . Time changes happen often and if your time is changed the preop area will call you the afternoon before. - You and your visitor will be asked to self-screen and do not enter if you have any COVID symptoms. - A mask is optional within the hospital at this time. Patients may have clear liquids (water, carbonated beverages, clear teas, apple juice) until 3 hours prior to surgery( 4:30 AM) with a maximum of 20 ounces. - No food from midnight until time of surgery - Infants may have breast milk until 4 hours before surgery, infant formula 6 hours prior to surgery. - Children will be allowed to drink immediately following surgery. If applicable, please bring a bottle or sippy cup to assist with drinking. Juice, water, soda, and popsicles are readily available. For infants on formula, please bring formula the day of surgery. Pacifiers are allowed. Take the following medications with a SIP of water the morning of surgery: _AMLODIPINE,METOPROLOL DO NOT STOP ANY OF YOUR OTHER PRESCRIPTION MEDICATIONS PRIOR TO SURGERY ?EXCEPT THE FOLLOWING Medications to discontinue per physician ___RONNIE REINALDO TO CALL DR MAHARAJ REGARDING IF TO HOLD ASPIRIN AND/OR PLAVIX Please no make-up, nail paraguayan, hairspray, perfume, deodorant, or body powder the day of surgery. No jewelry (including any body piercings) or valuables the day of surgery, leave them at home. Please take a shower or bath the night before, or the morning of, surgery with an antibacterial soap. Wear comfortable, loose fitting clothing. Children are encouraged to wear pajamas. - Jewelry must be removed prior to entering the operating room. Rings and piercings that are not removed may be cut off. - The hospital will not accept responsibility for valuables. - Please leave all valuables, including medications, at home the day of surgery. If you are going home after surgery, a licensed driver license reviewing officer must drive you home. - NO public transportation without another adult if you receive anesthesia. - We recommend that an adult stay with you for 24 hours following discharge. - We also recommend that you do not drive, make important decision, drink alcoholic beverages, or take any drugs that were not prescribed by your health care provider for at least 24 hours after your discharge time. For Pediatric surgeries, we recommend two adults accompany the child home. Follow any additional instructions given to you from your surgeon. If you or anyone in your household have experienced Covid symptoms in the past week, please notify your surgeon or the nurse liaison at the phone number below for possible testing. Telephone instructions given to __DAUGHTER RACHELE and asked if any additional questions and then verbalized understanding. Patient advised to call surgeon office or pre surgery nurse liaison [phone] if any additional questions.
[2023-07-01 13:45] VITALS: BMI 26.6
--- NOTE | 2023-07-09 14:27 | WPDANESEPPF ---
Anes - Initial Pre Proc Eval Procedure: Operation Date: 07/10/23 07:30 Proposed Procedures p Excisional Biopsy Right Breast Mass - Monik Huber MD Date/Time: 07/09/23 14:27 Surgeon: Monik Huber MD Pre Op Diagnosis: Mass Right Breast Patient Data Age: 87 Gender: F Height: 1.65 m Weight: 72.65 kg Allergies Allergy/AdvReac Type Severity Reaction Status Date / Time oxycodone [From Percocet] AdvReac Hallucinati Verified 07/10/23 06:15 ng Home Medications Medication Instructions Recorded Confirmed Type aspirin 81 mg tablet,delayed 81 mg PO DAILY 11/16/21 07/01/23 History release (Adult Low Dose Aspirin) triamcinolone acetonide 0.1 % 1 applic topical BID #80 grams 09/25/22 07/01/23 Rx topical cream chlorthalidone 25 mg tablet 25 mg PO DAILY 30 days #30 tabs 10/22/22 07/01/23 Rx amlodipine 10 mg tablet See Rx Instructions .Route 01/11/23 07/01/23 Rx .COMPLEX #90 tabs clopidogrel 75 mg tablet 75 mg PO DAILY #90 tabs 01/11/23 07/01/23 Rx pravastatin 20 mg tablet 20 mg PO DAILY #90 tabs 01/11/23 07/01/23 Rx metoprolol tartrate 50 mg tablet 50 mg PO DAILY #90 tabs 05/20/23 07/01/23 Rx Patient hx anesthesia problems: none Family hx anesthesia problems: none Results Review: All pre-operative results and documents have been reviewed as part of the pre-operative evaluation. [facility] Past Medical History Medical History (Updated 07/09/23 @ 14:28 by Tomas Zamora DO) Cardiomyopathy Chronic kidney disease, stage 3 (moderate) CVA (cerebral vascular accident) HTN (hypertension) Hyperlipidemia Surgical History Surgical History (Updated 07/09/23 @ 14:28 by Tomas Zamora DO) Hx of CABG x1 2008 Family History Family History (Updated 06/13/23 @ 14:25 by Tatianna Renae CMA) Sibling Patient's sister is in good health Family history of malignant melanoma Mother Colon cancer Unknown Hypertension Social History Social History (Updated 06/13/23 @ 12:59 by Tatianna Renae CMA) Social History: Caffeine-occasional coffee/soda Smoking status: Never smoker Alcohol intake: never Substance use: never Substance use type: does not use Do You Feel Safe in your Home?: Yes Lack of Transportation: No Lack of Food: Never True Current Housing: I Have Housing Concerned About Future Housing: No Difficulty Paying Gas/Electric Bills: No Difficulty Paying for Meds: No Currently Unemployed: No Education: Associate Degree Difficulty w/ Childcare or Family Care: No Living arrangements: other Additional living arrangements comments: [facility]DEPENDENT LIVING AT [facility] concerns: No Anes - Eval Final PreProcedure Day of Procedure 07/09/23 14:27 Patient weight: overweight Heart: regular rate and rhythm Lungs: clear to auscultation Airway: Mallampati scale class II Neurological: alert and oriented Last oral intake: >/= 8 hours ASA classification: III Emergent: no Anesthetic plan: proceed Anesthesia type and monitoring: general LMA and standard monitoring Results Review: All pre-operative results and documents have been reviewed as part of the pre-operative evaluation. Informed Consent: The patient's anesthetic plan and its attendant risks and benefits were discussed with the patient/family/POA. Questions were solicited and answers provided to the satisfaction of the patient/family/POA.
[2023-07-10] VITALS (8 sets, daily range): BP systolic 103–163; BP diastolic 41–81; PULSE 43–55; RESP 12–20; TEMP 36.1; O2SAT 97–100; BMI 25.4
--- NOTE | ~2023-07-10 | MM_ITS ---
MM_FAXITRON_MG DATE: 07/10/2023 08:29 INDICATION: Surgical breast specimen TECHNIQUE: Single noncompression mammographic exposure of surgical soft tissue specimen COMPARISON: May 30, 2023 postbiopsy right mammogram FINDINGS: Coil biopsy marker and approximately 1.5 x 1.7 cm soft tissue mass are noted within the leila gical soft tissue specimen. IMPRESSION: Successful surgical excision of mass and biopsy marker Reviewed, dictated and finalized at [facility]. Reviewed, dictated and finalized at location [facility].
[2023-07-10] MEDS: ACETAMINOPHEN 500 MG TABLET 1000 MG PO (07:00)
[2023-07-10] MEDS: LACTATED RINGERS 1,000 ML 30 ML IV CONT (07:00)
--- NOTE | 2023-07-10 07:02 | WPDHPUPDATE1 ---
History and Physical Update Update Date/Time: 07/10/23 07:02 History and Physical has been reviewed, including an updated exam of the patient. There are NO changes in the patient's condition. Risks, benefits, and alternatives have been discussed and questions answered. Patient agrees to proceed with procedure.
[2023-07-10] MEDS: ceFAZolin 2 GM/D5W 50 ML 2 GM/50 ML BAG IVPB (07:53)
[2023-07-10] MEDS: LIDOCAINE HCL 1% LOCAL INJ 20 ML VIAL INFILTRATE (08:09)
[2023-07-10] MEDS: BUPIVACAINE/EPINEPHRINE 0.5% 30 ML VIAL 20 ML INFILTRATE (08:09)
--- NOTE | 2023-07-10 08:33 | SUR.OPER ---
0759-incision 0821- ischemia time 0822- Dr. Huber marked right breast mass 0826- breast mass scanned 0827- Alejandra in mammography notified of scans 0829- images sent to mammography 0832- breast mass taken to lab per PCT Kain 0836- breast mass received from [facility] in lab 0838- Radiology called- Dr. Champagne is assisting with another procedure
--- NOTE | 2023-07-10 08:58 | P.OP_ITS ---
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 Given the size, shape, and irregular margins of this mass this was felt to be a discordant? to radiolo gic findings, and she was recommended for surgical resection for further evaluation.?Risks of procedure were discussed with patient which included but were not limited to bleeding, infection, possible need for additional procedures in the future, recurrence, wound healing problems, asymmetry, scar, pain, as well as the risk of anesthesia. All questions were answered and patient has agreed to proceed. Description of Procedure Patient was identified in the pre-operative area and brought to the OR suite. She was laid supine in the operating table and sequential compression devices were applied. General anesthesia was induced without difficulties. The right chest was prepped and draped in a sterile fashion. The mass was palpable, and the skin overlying the mass was marked for a future incision. The skin and subcutaneous tissue was infiltrated with 0.25% marcaine with epinephrine and a curvilinear incision was made overlying the mass. Dissection was carried down through the subcutaneous tissue into the breast tissue. The tumor was identified with palpation and a rim of normal breast tissue was excised along with the tumor as our lumpectomy specimen. Once the specimen was completely excised, it was oriented using surgical paint according to drywall contractor instructions. The specimen was placed in the faxitron and 2 radiographs were obtained and sent to Radiology for radiographic confirmation of Tumor, biopsy marker margins around the specimen. Once the radiographic confirmation was received, the wound was irrigated with saline and hemostasis was assured. The deep dermal layer was approximated using interrupted 3-0 vicryl followed by 4-0 monocryl for the skin. Dermabond was applied followed by a surgical bra. Patient was awoken from anesthesia and taken to the recovery area in stable condition. All needles, instruments and sponge counts were correct as reported by the operating room staff. Patient tolerated the procedure well with no immediate complications. Sharon Wayne PA-C was required for positioning and retraction throughout the entire case. Estimated Blood Loss 10 Pathology Yes Complications No immediate complications Condition Stable Disposition PACU [facility] Billing Surgery - Charge Forward: Surgery Billing (CPT 91077)
== END 2023-07-10 10:41 | disposition home or self-care (01) ==
PROVIDERS: PCP Family Medicine; Visit Provider Surgery
PROC: (CPT 19301; principal; 2023-07-10 07:30)
DX: D24.1 Benign neoplasm of right breast (principal); I12.9 Hypertensive chronic kidney disease with stage 1 through stage 4 chronic kidney disease, or unspecified chronic kidney disease; N18.30 Chronic kidney disease, stage 3 unspecified; E78.5 Hyperlipidemia, unspecified; I42.9 Cardiomyopathy, unspecified; Z86.73 Personal history of transient ischemic attack (TIA), and cerebral infarction without residual deficits; Z95.1 Presence of aortocoronary bypass graft; Z79.02 Long term (current) use of antithrombotics/antiplatelets; Z79.84 Long term (current) use of oral hypoglycemic drugs
CPT/HCPCS: 19301; 36415; 76098; 80048; 85610; 85730; 88307; 93005; A9270; J0690; J2405; J2704; J3010; J7120; Q9968

== ENCOUNTER 2023-11-14 11:28 | Outpatient (CLI) | payer OTHER, SELFPAY ==
[2023-11-14 13:13] LABS: Alanine Aminotransferase 13 U/L (6-35); Albumin Level 4.3 g/dL (3.5-5.1); Alkaline Phosphatase 93 U/L (38-126); Anion Gap 5 mmol/L (4-12); Aspartate Amino Transferase 82 U/L (14-36); Bilirubin,Total 0.6 mg/dL (0.2-1.3); Blood Urea Nitrogen 36 mg/dL (7-17); Calcium 9.6 mg/dL (8.4-10.2); Carbon Dioxide 36 mmol/L (22-30); Chloride 101 mmol/L (98-107); Estimated Glomerular Filt Rate 22; Glucose 103 mg/dL (65-110); Potassium 3.9 mmol/L (3.4-5.0); Sodium 142 mmol/L (137-145)
[2023-11-14 15:35] LABS: Hemoglobin A1C 6.1 % (<5.7)
== END 2023-11-14 11:29 | disposition home or self-care (01) ==
LOC: ANHGOSHLAB 11:29
PROVIDERS: PCP Family Medicine; Visit Provider Family Medicine
DX: R73.03 Prediabetes (principal); Z13.228 Encounter for screening for other metabolic disorders
CPT/HCPCS: 36415; 80053; 83036

== ENCOUNTER 2024-02-27 17:27 | Observation (INO) | payer OTHER, SELFPAY ==
--- NOTE | ~2024-02-27 | XR_ITS ---
EXAMINATION: XR chest 2V DATE: 02/27/2024 18:51 INDICATION: Chest pain. TECHNIQUE: Frontal and lateral views of the chest were obtained. COMPARISON: Chest single view 11/08/2021 FINDINGS: There is no pneumonia, pleural effusion, or pneumothorax. Cardiomegaly is noted. Median moi rnotomy wires and mediastinal surgical clips are seen, likely from prior coronary artery bypass graft ing. IMPRESSION: 1. Cardiomegaly. Reviewed, dictated and finalized at location [facility]. WARDEN IMPRESSION: 1. Cardiomegaly.
--- NOTE | ~2024-02-27 | CT_ITS ---
Clinical Indication: Chest pain CT Scan of the Chest with Contrast: Technique: Contiguous sections were acquired throughout the chest after intravenous administration of 100 cc of Omnipaque 350. Dose reduction technique was used on this scan by utilizing automated expos ure control and iterative reconstruction technique. The dose-length product (DLP) was 182.33 mGy-cm. Findings: There is no evidence of any significant mediastinal, hilar or axillary lymphadenopathy. There is no f illing defect in the pulmonary arterial tree to suggest pulmonary embolus. There is no evidence of ao rtic dissection or aneurysm. There is no evidence of pleural or pericardial effusion. The lungs are clear. No pulmonary nodules or infiltrates are noted. Images through the upper abdomen reveal no abnormalities. Impression: No evidence of pulmonary embolus, aortic dissection, or aortic aneurysm. Clear lungs. Reviewed, dictated and finalized at [facility]. TLE MAINTERNANCE LABORER Impression: No evidence of pulmonary embolus, aortic dissection, or aortic aneurysm. Clear lungs.
[2024-02-27 17:53] VITALS: BP 180/49; PULSE 52; RESP 16; TEMP 37; O2SAT 98
--- NOTE | 2024-02-27 17:54 | ECG_ITS ---
Test Date: 2024-02-27 21:13:33 Measurements Intervals [place] Rate: 45 P: 76 [place]: 203 QRS: -14 QRSD: 156 T: 113 QT: 605 QTc: 524 Interpretive Statements SINUS BRADYCARDIA LEFT BUNDLE BRANCH BLOCK BASELINE ARTIFACT- I, II, III, AVR, AVL, AVF ABNORMAL ECG No previous ECG available for comparison Electronically Signed On 02-28-2024 06:35:26 RECEPTION by Brad Santiago D.O.
[2024-02-27 21:17] VITALS: PULSE 48
[2024-02-27 21:34] LABS: Basophils Absolute Auto 0.1 K/mm3 (0.0-0.1); Basophils Percent Auto 0.7 % (0.2-1.2); Eosinophils Absolute Auto 0.3 K/mm3 (0-0.3); Eosinophils Percent Auto 3.4 % (0-4.4); Hematocrit 38.6 % (37.0-47.0); Hemoglobin 12.7 g/dL (12.0-15.0); Immature Granulocyte Absolute 0.01 K/mm3 (0.00-0.031); Immature Granulocyte Percent A 0.1 % (0-0.5); Lymphocytes Absolute Auto 2.16 K/mm3 (0.9-3.2); Lymphocytes Percent Auto 28.6 % (18.3-44.2); Mean Corpuscular HGB Conc 32.9 g/dl (32-36); Mean Corpuscular Hemoglobin 30.5 pg (26-34); Mean Corpuscular Volume 92.6 fl (80-100); Mean Platelet Volume 10.2 fl (7.4-10.4); Monocytes Absolute Auto 0.9 K/mm3 (0.1-0.6); Monocytes Percent Auto 12.5 % (2.6-8.5); Neutrophils Absolute Auto 4.1 K/mm3 (1.3-6.7); Neutrophils Percent Auto 54.7 % (45.5-73.1); Platelet Count Result 232 k/mm3 (150-375); Red Blood Count 4.17 M/mm3 (4.2-5.4); Red Cell Distribution Width 13.1 % (11.5-14.5); White Blood Count 7.5 K/mm3 (4.5-10.0)
[2024-02-27 21:44] LABS: Alanine Aminotransferase 18 U/L (6-35); Albumin Level 4.1 g/dL (3.5-5.1); Alkaline Phosphatase 110 U/L (38-126); Anion Gap 2 mmol/L (4-12); Aspartate Amino Transferase 33 U/L (14-36); Bilirubin,Total 0.6 mg/dL (0.2-1.3); Blood Urea Nitrogen 24 mg/dL (7-17); Calcium 9.6 mg/dL (8.4-10.2); Carbon Dioxide 31 mmol/L (22-30); Chloride 104 mmol/L (98-107); Estimated CRCL calculation 21 ml/min; Estimated Glomerular Filt Rate 33; Glucose 102 mg/dL (65-110); Lipase 299 U/L (23-300); Potassium 3.8 mmol/L (3.4-5.0); Sodium 137 mmol/L (137-145)
[2024-02-27 21:48] LABS: Prothrombin Time 13.2 Seconds (11.1-14.7)
[2024-02-27 21:49] LABS: Partial Thromboplastin Time 31.2 Seconds (22.3-36.8)
[2024-02-27 21:56] LABS: Troponin I < 0.012 ng/mL (0.000-0.034)
[2024-02-27 21:57] LABS: Troponin I < 0.012 ng/mL (0.000-0.034)
[2024-02-28] VITALS (22 sets, daily range): BP systolic 180–186; BP diastolic 41–81; PULSE 42–61; RESP 12–25; O2SAT 91–100
--- NOTE | 2024-02-28 | ECHO_ITS ---
Patient Info Name: Tali Land Age: 88 years : 1935 Gender: Female Ht: 63 in Wt: 160 lbs BSA: 1.82 m2 HR: 56 bpm BP: 184 / 60 mmHg Heart Rhythm: Sinus Rhythm Technical Quality: Good Exam Date: 02/28/2024 11:49 AM Exam Location: Echo Lab Patient Status: Inpatient Admit Date: 02/28/2024 Staff Ordering Physician: Lydia Echeverria MD Copper Flotation Operator: Nhan Manzo RDCS Attending Provider: Idris York MD Exam Type: CA echo doppler limited Study Info Indications - bradycardia Limited two-dimensional transthoracic echocardiogram is performed. Summary 1. Limited echo as the patient refused the test in-between the study. 2. Left ventricular chamber dimension is normal. 3. Left ventricular wall thickness is mildly increased. 4. Right ventricular systolic function appears to be normal. 5. The pericardium appears normal. 6. There is mild to moderate posteriorly directed eccentric mitral valve regurgitation. 7. There is no aortic valve stenosis on visual assessment and planimetry. No doppler performed as the patient refused test. 8. There is mild aortic valve regurgitation. 9. There is mild tricuspid valve regurgitation. Recommendations * Consider complete echo if more information is needed. Left Ventricle Left ventricular chamber dimension is normal. Left ventricular wall thickness is mildly increased. Left ventricular systolic function is normal with an estimated ejection fraction of 55-60% based on parasternal/short axis views. Right Ventricle Right ventricular systolic function appears to be normal. RV size not assess, test incomplete. Left Atria Not assessed, incomplete test. Right Atria No assessed, incomplete test. Aortic Valve The aortic valve is trileaflet. There is no aortic valve stenosis on visual assessment and planimetry. No doppler performed as the patient refused test. There is mild aortic valve regurgitation. Pulmonic Valve There is mild pulmonic regurgitation. Mitral Valve The mitral valve has normal leaflets. There is no mitral valve stenosis. There is mild to moderate posteriorly directed eccentric mitral valve regurgitation. Tricuspid Valve There is mild tricuspid valve regurgitation. No gradient measured. Pericardium/Pleural The pericardium appears normal. Inferior Vena Cava Not evaluated, incomplte test. Aorta The aortic root size at the sinus of Valsalva is normal. The prox ascending aorta size is normal. Left Ventricular Outflow Tract Name Value Normal LVOT 2D LVOT Diameter 2.00 cm Pulmonic Valve Name Value Normal PV Regurgitation Doppler IL Peak End Diastolic Velocity 131.18 cm/s Tricuspid Valve Name Value Normal TV Regurgitation Doppler TR Peak Velocity 240.86 cm/s TR Peak Gradient 23 mmHg Estimated PAP/RSVP RA Pressure 10 mmHg <=5 PA Systolic Pressure 33 mmHg <36 RV Systolic Pressure 33 mmHg <36 Aortic Valve Name Value Normal AV Regurgitation 2D LVOT Area 3.15 cm2 Ventricles Name Value Normal LV Dimensions 2D/MM IVS Diastolic Thickness (2D) 1.16 cm 0.60-1.00 LVID Diastole (2D) 4.57 cm 3.80-5.20 LVIW Diastolic Thickness (2D) 1.17 cm 0.60-0.90 LVID Systole (2D) 2.80 cm 2.20-3.50 LVOT Diameter 2.00 cm LV Mass (2D Cubed) 194.63 g 67.00-162.00 LV Mass Index (2D Cubed) 0.01 g/cm2 0.00-0.01 Relative Wall Thickness (2D) 0.51 LV Fractional Shortening/Ejection Fraction 2D/MM LV Fractional Shortening (2D) 39 % 27-45 LV EF (2D Te[place]pina) 69 % 54-74 Report Signatures Amended by Yusra Garcia on 02/28/2024 14:04
[2024-02-28 01:27] LABS: Magnesium 2.1 mg/dL (1.6-2.3)
[2024-02-28 01:36] LABS: NT Pro B Type Natriuretic Pept 2360 pg/mL (19.9-100)
[2024-02-28 02:18] LABS: D Dimer 1.63 ug/mL (<0.48)
--- NOTE | 2024-02-28 02:21 | ED.CHESTPAIN ---
HPI - Chest Pain General Chief Complaint: Chest Pain <Katharina Santos PA-C - Last Filed: 02/29/24 02:16> Stated Complaint: chest pain <JIMMY Oneil Last Filed: 02/29/24 02:16> Time Seen by Provider: 02/27/24 23:28 <Katharina Santos PA-C - Last Filed: 02/29/24 02:16> Source: patient <JIMMY Oneil Last Filed: 02/29/24 02:16> Mode of arrival: EMS <JIMMY Oneil Last Filed: 02/29/24 02:16> Limitations: no limitations <JIMMY Oneil Last Filed: 02/29/24 02:16> History of Present Illness HPI narrative: Patient is an 88-year-old female who presents the ED via EMS with report of chest pain. Patient is a resident of [facility]. She reports she was walking in the dining room around dinner time when she began having midsternal chest pain. States pain lasted a few minutes before resolving with rest. She did feel dizzy and short of breath with the pain. Denies current chest pain. Denies current dizziness. Denies recent cough or cold symptoms. <JIMMY Oneil Last Filed: 02/29/24 02:16> Related Data Home Medications: Home Medications Medication Instructions Recorded Confirmed hydroxyzine pamoate 25 mg capsule See Rx Instructions .Route 11/14/23 02/28/24 .COMPLEX PRN Anxiety acetaminophen 325 mg tablet 650 mg PO Q4H PRN Pain 02/28/24 02/28/24 amlodipine 10 mg tablet 10 mg PO DAILY 02/28/24 02/28/24 chlorthalidone 25 mg tablet 25 mg PO DAILY 02/28/24 02/28/24 magnesium hydroxide 30 ml PO DAILY PRN Constipation 02/28/24 02/28/24 quetiapine 25 mg tablet 12.5 mg PO HS 02/28/24 02/28/24 quetiapine 25 mg tablet 25 mg PO HS 02/28/24 02/28/24 trazodone 50 mg tablet 50 mg PO HS PRN Insomnia 02/28/24 02/28/24 <Katharina Santos PA-C - Last Filed: 02/29/24 02:16> Allergies/Adverse Reactions: Allergies Allergy/AdvReac Type Severity Reaction Status Date / Time oxycodone [From Percocet] AdvReac Hallucinati Verified 11/14/23 11:08 ng <Katharina Santos PA-C - Last Filed: 02/29/24 02:16> Review of Systems Review of Systems: All systems reviewed & are unremarkable except as noted in HPI. <Katharina Santos PA-C - Last Filed: 02/29/24 02:16> All systems reviewed & are unremarkable except as noted in HPI and below <Katharina Santos PA-C - Last Filed: 02/29/24 02:16> FORMERLY [facility], [facility]–1983 Past Medical History Medical History: Medical History Cardiomyopathy Chronic kidney disease, stage 3 (moderate) CVA (cerebral vascular accident) HTN (hypertension) Hyperlipidemia <Katharina Santos PA-C - Last Filed: 02/29/24 02:16> Surgical History Surgical History: Surgical History Hx of CABG x1 2008 <Katharina Santos PA-C - Last Filed: 02/29/24 02:16> Family History Family History: Family History Sibling Patient's sister is in good health Family history of malignant melanoma Mother Colon cancer Unknown Hypertension <Katharina Santos PA-C - Last Filed: 02/29/24 02:16> Social History Social History: Social History Social History: Caffeine-occasional coffee/soda Smoking status: Never smoker Alcohol intake: never Substance use: never Substance use type: does not use Do You Feel Safe in your Home?: Yes Lack of Transportation: No Lack of Food: Never True Current Housing: I Do Not Have Housing Concerned About Future Housing: No Difficulty Paying Gas/Electric Bills: No Difficulty Paying for Meds: No Currently Unemployed: No Education: High School Diploma/GED Difficulty w/ Childcare or Family Care: No Living arrangements: other Additional living arrangements comments: INDEPENDENT LIVING AT [facility] concerns: No <Katharina Santos PA-C - Last Filed: 02/29/24 02:16> Exam Narrative: GENERAL: Elderly, somewhat frail-appearing, non-toxic, in no acute distress. HEAD: Normocephalic, atraumatic. RESPIRATORY: Airway patent, respirations nonlabored. Clear to auscultation bilaterally, no rales, rhonchi, wheezing. CARDIOVASCULAR: Regular rate and rhythm without murmurs, rubs, or gallops. Peripheral pulses intact. MUSCULOSKELETAL: Moves all extremities. No gross deformities. No significant peripheral edema. SKIN: Warm, dry, normal color. NEURO: A&O X3. Speech clear. No ataxic movements. PSYCHIATRIC: Appropriate mood and affect. Normal interaction. <JIMMY Oneil Last Filed: 02/29/24 02:16> Course OCCUPATIONAL HYGIENIST/PA Physician Supervision This visit was performed by both a physician and an APC. I performed all aspects of the MDM as documented. <Teja Kumar MD - Last Filed: 02/28/24 04:25> Vital Signs Vital signs: Vital Signs Temperature 98.6 F 02/27/24 17:53 Pulse Rate 52 L 02/27/24 17:53 Respiratory Rate 16 02/27/24 17:53 Blood Pressure 180/49 H 02/27/24 17:53 Pulse Oximetry 98 02/27/24 17:53 Temperature 98.6 F 02/27/24 17:53 Pulse Rate 59 L 02/28/24 12:03 Respiratory Rate 12 02/28/24 04:40 Blood Pressure 184/60 H 02/28/24 04:40 Pulse Oximetry 100 02/28/24 04:40 Oxygen Delivery Room Air 02/28/24 04:51 <Katharina Santos PA-C - Last Filed: 02/29/24 02:16> Vital Signs Temperature 98.6 F 02/27/24 17:53 Pulse Rate 52 L 02/27/24 17:53 Respiratory Rate 16 02/27/24 17:53 Blood Pressure 180/49 H 02/27/24 17:53 Pulse Oximetry 98 02/27/24 17:53 Temperature 98.6 F 02/27/24 17:53 Pulse Rate 59 L 02/28/24 12:03 Respiratory Rate 12 02/28/24 04:40 Blood Pressure 184/60 H 02/28/24 04:40 Pulse Oximetry 100 02/28/24 04:40 Oxygen Delivery Room Air 02/28/24 04:51 <Teja Kumar MD - Last Filed: 02/28/24 04:25> MDM - Chest Pain MDM Narrative Medical decision making narrative: EKG with LBBB, chronic appears consistent with previous records. QT is notably prolonged today. Troponin negative X2 HEART SCORE = 6 or 7 based on RFs BNP mildly elevated to 2360. Patient does not appear clinically fluid overloaded. Chest x-ray with cardiomegaly. No evidence of pulmonary edema. D-dimer was elevated. CTA PE study obtained and pending Patient will be admitted for further cardiac workup given exertional CP with elevated HEART score today. Discussed case with Dr. York, hospitalist, accepted patient for admission. Cardiology to be consulted. Patient in agreement with plan and need for admission. <Katharina Santos PA-C - Last Filed: 02/29/24 02:16> Medical Records Data Attestation: I reviewed the patient's medical records. <Katharina Santos PA-C - Last Filed: 02/29/24 02:16> Lab Data Attestation: I reviewed the patient's lab results. <Katharina Santos PA-C - Last Filed: 02/29/24 02:16> Result diagrams: 02/27/24 21:24 02/27/24 21:24 <Katharina Santos PA-C - Last Filed: 02/29/24 02:16> Labs: Lab Results 02/27/24 02/27/24 02/27/24 Range/Units 21:22 21:22 21:24 WBC 7.5 (4.5-10.0) K/mm3 RBC 4.17 L (4.2-5.4) M/mm3 Hgb 12.7 (12.0-15.0) g/dL Hct 38.6 (37.0-47.0) % MCV 92.6 (80-100) fl MCH 30.5 (26-34) pg MCHC 32.9 (32-36) g/dl RDW 13.1 (11.5-14.5) % Plt Count 232 (150-375) k/mm3 MPV 10.2 (7.4-10.4) fl Immature Gran % (Auto) 0.1 (0-0.5) % Neut % (Auto) 54.7 (45.5-73.1) % Lymph % (Auto) 28.6 (18.3-44.2) % [place] % (Auto) 12.5 H (2.6-8.5) % Eos % (Auto) 3.4 (0-4.4) % Baso % (Auto) 0.7 (0.2-1.2) % Lymph # (Auto) 2.16 (0.9-3.2) K/mm3 [place] # (Auto) 0.9 H (0.1-0.6) K/mm3 Eos # (Auto) 0.3 (0-0.3) K/mm3 Baso # (Auto) 0.1 (0.0-0.1) K/mm3 Abs Immat Gran (auto) 0.01 (0.00-0.031) K/mm3 Absolute Neuts (auto) 4.1 (1.3-6.7) K/mm3 Absolute Nucleated RBC 0.000 (0.0-0.012) K/mm3 Nucleated RBC % 0.0 (0.0-0.2) % PT 13.2 (11.1-14.7) Seconds INR 1.0 APTT 31.2 (22.3-36.8) Seconds D-Dimer Cancelled 1.63 H Sodium 137 (137-145) mmol/L Potassium 3.8 (3.4-5.0) mmol/L Chloride 104 (98-107) mmol/L Carbon Dioxide 31 H (22-30) mmol/L Anion Gap 2 L (4-12) mmol/L BUN 24 H D (7-17) mg/dL Creatinine 1.50 H (0.7-1.0) mg/dL Estim Creat Clear Calc 21 ml/min Estimated GFR 33 L (59 - ) Glucose 102 (65-110) mg/dL Calcium 9.6 (8.4-10.2) mg/dL Magnesium 2.1 (1.6-2.3) mg/dL Total Bilirubin 0.6 (0.2-1.3) mg/dL AST 33 (14-36) U/L ALT 18 (6-35) U/L Alkaline Phosphatase 110 (38-126) U/L Troponin I < 0.012 (0.000-0.034) ng/mL NT-Pro-B Natriuret Pep 2360 H (19.9-100) pg/mL Total Protein (6.3-8.2) g/dL Albumin (3.5-5.1) g/dL Lipase (23-300) U/L / Range/Units 21:24 WBC (4.5-10.0) K/mm3 RBC (4.2-5.4) M/mm3 Hgb (12.0-15.0) g/dL Hct (37.0-47.0) % MCV (80-100) fl MCH (26-34) pg MCHC (32-36) g/dl RDW (11.5-14.5) % Plt Count (150-375) k/mm3 MPV (7.4-10.4) fl Immature Gran % (Auto) (0-0.5) % Neut % (Auto) (45.5-73.1) % Lymph % (Auto) (18.3-44.2) % [place] % (Auto) (2.6-8.5) % Eos % (Auto) (0-4.4) % Baso % (Auto) (0.2-1.2) % Lymph # (Auto) (0.9-3.2) K/mm3 [place] # (Auto) (0.1-0.6) K/mm3 Eos # (Auto) (0-0.3) K/mm3 Baso # (Auto) (0.0-0.1) K/mm3 Abs Immat Gran (auto) (0.00-0.031) K/mm3 Absolute Neuts (auto) (1.3-6.7) K/mm3 Absolute Nucleated RBC (0.0-0.012) K/mm3 Nucleated RBC % (0.0-0.2) % PT (11.1-14.7) Seconds INR APTT (22.3-36.8) Seconds D-Dimer Sodium (137-145) mmol/L Potassium (3.4-5.0) mmol/L Chloride (98-107) mmol/L Carbon Dioxide (22-30) mmol/L Anion Gap (4-12) mmol/L BUN (7-17) mg/dL Creatinine (0.7-1.0) mg/dL Estim Creat Clear Calc ml/min Estimated GFR (59 - ) Glucose (65-110) mg/dL Calcium (8.4-10.2) mg/dL Magnesium (1.6-2.3) mg/dL Total Bilirubin (0.2-1.3) mg/dL AST (14-36) U/L ALT (6-35) U/L Alkaline Phosphatase (38-126) U/L Troponin I < 0.012 (0.000-0.034) ng/mL NT-Pro-B Natriuret Pep (19.9-100) pg/mL Total Protein 7.0 (6.3-8.2) g/dL Albumin 4.1 (3.5-5.1) g/dL Lipase 299 (23-300) U/L <Katharina Santos PA-C - Last Filed: 02/29/24 02:16> Lab Results 02/27/24 02/27/24 02/27/24 Range/Units 21:22 21:22 21:24 WBC 7.5 (4.5-10.0) K/mm3 RBC 4.17 L (4.2-5.4) M/mm3 Hgb 12.7 (12.0-15.0) g/dL Hct 38.6 (37.0-47.0) % MCV 92.6 (80-100) fl MCH 30.5 (26-34) pg MCHC 32.9 (32-36) g/dl RDW 13.1 (11.5-14.5) % Plt Count 232 (150-375) k/mm3 MPV 10.2 (7.4-10.4) fl Immature Gran % (Auto) 0.1 (0-0.5) % Neut % (Auto) 54.7 (45.5-73.1) % Lymph % (Auto) 28.6 (18.3-44.2) % [place] % (Auto) 12.5 H (2.6-8.5) % Eos % (Auto) 3.4 (0-4.4) % Baso % (Auto) 0.7 (0.2-1.2) % Lymph # (Auto) 2.16 (0.9-3.2) K/mm3 [place] # (Auto) 0.9 H (0.1-0.6) K/mm3 Eos # (Auto) 0.3 (0-0.3) K/mm3 Baso # (Auto) 0.1 (0.0-0.1) K/mm3 Abs Immat Gran (auto) 0.01 (0.00-0.031) K/mm3 Absolute Neuts (auto) 4.1 (1.3-6.7) K/mm3 Absolute Nucleated RBC 0.000 (0.0-0.012) K/mm3 Nucleated RBC % 0.0 (0.0-0.2) % PT 13.2 (11.1-14.7) Seconds INR 1.0 APTT 31.2 (22.3-36.8) Seconds D-Dimer Cancelled 1.63 H Sodium 137 (137-145) mmol/L Potassium 3.8 (3.4-5.0) mmol/L Chloride 104 (98-107) mmol/L Carbon Dioxide 31 H (22-30) mmol/L Anion Gap 2 L (4-12) mmol/L BUN 24 H D (7-17) mg/dL Creatinine 1.50 H (0.7-1.0) mg/dL Estim Creat Clear Calc 21 ml/min Estimated GFR 33 L (59 - ) Glucose 102 (65-110) mg/dL Calcium 9.6 (8.4-10.2) mg/dL Magnesium 2.1 (1.6-2.3) mg/dL Total Bilirubin 0.6 (0.2-1.3) mg/dL AST 33 (14-36) U/L ALT 18 (6-35) U/L Alkaline Phosphatase 110 (38-126) U/L Troponin I < 0.012 (0.000-0.034) ng/mL NT-Pro-B Natriuret Pep 2360 H (19.9-100) pg/mL Total Protein (6.3-8.2) g/dL Albumin (3.5-5.1) g/dL Lipase (23-300) U/L // Range/Units 21:24 WBC (4.5-10.0) K/mm3 RBC (4.2-5.4) M/mm3 Hgb (12.0-15.0) g/dL Hct (37.0-47.0) % MCV (80-100) fl MCH (26-34) pg MCHC (32-36) g/dl RDW (11.5-14.5) % Plt Count (150-375) k/mm3 MPV (7.4-10.4) fl Immature Gran % (Auto) (0-0.5) % Neut % (Auto) (45.5-73.1) % Lymph % (Auto) (18.3-44.2) % [place] % (Auto) (2.6-8.5) % Eos % (Auto) (0-4.4) % Baso % (Auto) (0.2-1.2) % Lymph # (Auto) (0.9-3.2) K/mm3 [place] # (Auto) (0.1-0.6) K/mm3 Eos # (Auto) (0-0.3) K/mm3 Baso # (Auto) (0.0-0.1) K/mm3 Abs Immat Gran (auto) (0.00-0.031) K/mm3 Absolute Neuts (auto) (1.3-6.7) K/mm3 Absolute Nucleated RBC (0.0-0.012) K/mm3 Nucleated RBC % (0.0-0.2) % PT (11.1-14.7) Seconds INR APTT (22.3-36.8) Seconds D-Dimer Sodium (137-145) mmol/L Potassium (3.4-5.0) mmol/L Chloride (98-107) mmol/L Carbon Dioxide (22-30) mmol/L Anion Gap (4-12) mmol/L BUN (7-17) mg/dL Creatinine (0.7-1.0) mg/dL Estim Creat Clear Calc ml/min Estimated GFR (59 - ) Glucose (65-110) mg/dL Calcium (8.4-10.2) mg/dL Magnesium (1.6-2.3) mg/dL Total Bilirubin (0.2-1.3) mg/dL AST (14-36) U/L ALT (6-35) U/L Alkaline Phosphatase (38-126) U/L Troponin I < 0.012 (0.000-0.034) ng/mL NT-Pro-B Natriuret Pep (19.9-100) pg/mL Total Protein 7.0 (6.3-8.2) g/dL Albumin 4.1 (3.5-5.1) g/dL Lipase 299 (23-300) U/L <Teja Kumar MD - Last Filed: 02/28/24 04:25> Imaging Data Attestation: I personally reviewed and interpreted this imaging study as follows: <Katharina Santos PA-C - Last Filed: 02/29/24 02:16> Radiologist's impression: ITS Impressions Chest X-Ray 02/27/24 18:51 IMPRESSION: 1. Cardiomegaly. <Katharina Santos PA-C - Last Filed: 02/29/24 02:16> ECG Data EKG #1: Attestation: I personally reviewed and interpreted this ECG as follows: <Katharina Santos PA-C - Last Filed: 02/29/24 02:16> ECG completion date: 02/27/24 <Katharina Santos PA-C - Last Filed: 02/29/24 02:16> ECG completion time: 21:13 <Katharina Santos PA-C - Last Filed: 02/29/24 02:16> Prior ECG tracings: available for review (07/04/23 - chronic LBBB, sinus jorge alberto at 39) <Katharina Santos PA-C - Last Filed: 02/29/24 02:16> EKG Interpretation: bradycardia (45), sinus rhythm, LBBB (chronic per records ) and prolonged QT <Katharina Santos PA-C - Last Filed: 02/29/24 02:16> Discharge Plan Discharge Clinical Impression: Exertional chest pain, Bradycardia, LBBB (left bundle branch block) <Katharina Santos PA-C - Last Filed: 02/29/24 02:16> Patient Disposition: Still a Patient <Katharina Santos PA-C - Last Filed: 02/29/24 02:16> Condition: Stable <Katharina Santos PA-C - Last Filed: 02/29/24 02:16> Quality HEART score for chest pain patients History: highly suspicioius <Katharina Santos PA-C - Last Filed: 02/29/24 02:16> ECG: non specific repolarization disturbance/LBTB/PM <Katharina Santos PA-C - Last Filed: 02/29/24 02:16> Age: > or = to 65 years <Katharina Santos PA-C - Last Filed: 02/29/24 02:16> Risk factors: > or = to 3 risk factors of atherosclerotic disease <Katharina Santos PA-C - Last Filed: 02/29/24 02:16> Troponin: < or = to 1x normal limit <Katharina Santos PA-C - Last Filed: 02/29/24 02:16> Heart score: 7 <Katharina Santos PA-C - Last Filed: 02/29/24 02:16> 7 <Teja Kumar MD - Last Filed: 02/28/24 04:25>
--- NOTE | 2024-02-28 04:54 | ADMGEN ---
This patient, Tali Land, was admitted to [facility] Room 316-01. Patient/family oriented to hospital policies and general routines including ID bracelet, bed and alarms, visiting hours, pain management, procedures, bathroom and other care routines, personal items, smoking policy, room service/diet, and visiting hours. Information on how to activate the Rapid Response Team has been discussed. Patient/Family are encouraged to report perceived risks to care and to ask questions if they do not understand what they are told or what they should do.
[2024-02-28] MEDS: PRAVASTATIN SODIUM 20 MG TABLET PO (09:01)
[2024-02-28] MEDS: CHLORTHALIDONE 25 MG TABLET PO (09:01)
[2024-02-28] MEDS: CITALOPRAM HYDROBROMIDE 10 MG TABLET PO (09:02)
[2024-02-28] MEDS: CLOPIDOGREL BISULFATE 75 MG TABLET PO (09:02)
[2024-02-28] MEDS: amLODIPine BESYLATE 10 MG TABLET PO (09:02)
--- NOTE | 2024-02-28 12:45 | PM.DS ---
DS: Summary Time Spent with Patient Time attestation: Total time spent providing and/or coordinating discharge services: DS: Data Data Completed and Pending Labs on day of discharge: Labs from last 24 hours 02/27/24 02/27/24 02/27/24 21:24 21:24 21:22 WBC 7.5 RBC 4.17 L Hgb 12.7 Hct 38.6 MCV 92.6 MCH 30.5 MCHC 32.9 RDW 13.1 Plt Count 232 MPV 10.2 Immature Gran % (Auto) 0.1 Neut % (Auto) 54.7 Lymph % (Auto) 28.6 [place] % (Auto) 12.5 H Eos % (Auto) 3.4 Baso % (Auto) 0.7 Lymph # (Auto) 2.16 [place] # (Auto) 0.9 H Eos # (Auto) 0.3 Baso # (Auto) 0.1 Abs Immat Gran (auto) 0.01 Absolute Neuts (auto) 4.1 Absolute Nucleated RBC 0.000 Nucleated RBC % 0.0 PT 13.2 INR 1.0 APTT 31.2 D-Dimer 1.63 H Sodium 137 Potassium 3.8 Chloride 104 Carbon Dioxide 31 H Anion Gap 2 L BUN 24 H D Creatinine 1.50 H Estim Creat Clear Calc 21 Estimated GFR 33 L Glucose 102 Calcium 9.6 Magnesium 2.1 Total Bilirubin 0.6 AST 33 ALT 18 Alkaline Phosphatase 110 Troponin I < 0.012 < 0.012 NT-Pro-B Natriuret Pep 2360 H Total Protein 7.0 Albumin 4.1 Lipase 299 02/27/24 21:22 WBC RBC Hgb Hct MCV MCH MCHC RDW Plt Count MPV Immature Gran % (Auto) Neut % (Auto) Lymph % (Auto) [place] % (Auto) Eos % (Auto) Baso % (Auto) Lymph # (Auto) [place] # (Auto) Eos # (Auto) Baso # (Auto) Abs Immat Gran (auto) Absolute Neuts (auto) Absolute Nucleated RBC Nucleated RBC % PT INR APTT D-Dimer Cancelled Sodium Potassium Chloride Carbon Dioxide Anion Gap BUN Creatinine Estim Creat Clear Calc Estimated GFR Glucose Calcium Magnesium Total Bilirubin AST ALT Alkaline Phosphatase Troponin I NT-Pro-B Natriuret Pep Total Protein Albumin Lipase Discharge Plan Discharge Attending physician on discharge: Lydia Echeverria Consulting providers: Yusra Garcia; Teja Kumar; Brad Santiago; Norris Francisco V.; Manuel Amezquita Discharging Clinician: Lydia Echeverria Patient Disposition: NH Correction/Asst Living Activity: as tolerated Diet: heart healthy Discharge Instructions: patient to follow up with her primary care as soon as possible, patient is instructed if any symptoms worsen to go to nearest ER. Patient Instructions: Antibiotic Form Stand Alone Forms: General Discharge Information Follow-up/Referrals: Mari Acuña, [Primary Care Provider] - Discharge Medications: New nitroglycerin [Nitrostat] 0.4 mg Tablet, Sublingual 0.4 mg sublingual Q5MIN PRN (Reason: Chest Pain) Qty: 21 0RF Continued hydroxyzine pamoate 25 mg capsule See Rx Instructions .ROUTE .COMPLEX PRN (Reason: Anxiety) Rx Instructions: 25 mg PO Q 4 hours PRN, Anxiety tramadol 50 mg tablet 50 mg PO Q6H PRN (Reason: pain) Qty: 12 0RF quetiapine 25 mg tablet 12.5 mg PO HS quetiapine 25 mg tablet 25 mg PO HS acetaminophen 325 mg Tablet 650 mg PO Q4H PRN (Reason: Pain) trazodone 50 mg Tablet 50 mg PO HS PRN (Reason: Insomnia) chlorthalidone 25 mg tablet 25 mg PO DAILY magnesium hydroxide 400 mg/5 ml suspension 30 ml PO DAILY PRN (Reason: Constipation) amlodipine 10 mg tablet 10 mg PO DAILY Rx Instructions: TAKE 1 TABLET BY MOUTH EVERY DAY triamcinolone acetonide 0.1 % cream 1 applic TOPICAL BID Qty: 80 1RF clopidogrel 75 mg tablet 75 mg PO DAILY Qty: 90 1RF Hold Instructions: Resume on 07/14/23. May resume 4 days after surgery metoprolol tartrate 50 mg tablet 50 mg PO DAILY Qty: 90 1RF pravastatin 20 mg tablet 20 mg PO DAILY Qty: 90 1RF citalopram 10 mg tablet 10 mg PO DAILY Qty: 90 0RF Date of admission: 02/28/24 03:20 Primary Care Provider: Mari Acuña Admitting Provider: Idris York V. Attending physician on admission: Lydia Echeverria Condition: Stable
--- NOTE | 2024-02-28 13:25 | P.CONCA_ITS ---
Assessment and Plan Assessment and plan (1) Bradycardia: Code(s): R00.1 - Bradycardia, unspecified Status: Acute (2) LBBB (left bundle branch block): Code(s): I44.7 - Left bundle-branch block, unspecified Status: Acute (3) Atypical chest pain: Code(s): R07.89 - Other chest pain Status: Acute Plan 1. Hx of HOCM with septal myectomy myectomy in 2008 2. Sinus bradycardia 3. Atypical chest pain 4. CKD -there is reproducible chest pain in the left chest wall. She had a left heart catheterization in October 2022 which was reassuring. No need for heparin or invasive evaluation. A stress test was discussed with the which can be done as an outpatient as she wants to go home -will decrease metoprolol to 12.5 mg twice a day as she does have asymptomatic sinus bradycardia -continue aspirin -CKD as per primary -echo could not be completed so no med ventricular her LVOT gradients were measured. She can continue with her primary welder gas - History of Present Illness History of Present Illness Consult date/time: 02/28/24 13:25 Reason For Visit: chest pain Narrative: Patient is an 88-year-old female who with history of HOCM status post septal myomectomy in 2008. At the same time a WESLEY was placed in the LAD. Last cardiac catheterization done in October 2022 showed no significant obstructive disease in the LAD, circ and RCA. She was admitted today with atypical chest pain EKG showed sinus bradycardia with left bundle-branch block Troponin negative Echo was limited study showed normal LV function with an EF of 55-60, mild LVH. The patient did not complete the study so no med ventricular LVOT gradients were measured Review of Systems Review of Systems: All systems reviewed & are unremarkable except as noted in HPI. All systems reviewed & are unremarkable except as noted in HPI and below [facility] Past Medical History Medical History Cardiomyopathy Chronic kidney disease, stage 3 (moderate) CVA (cerebral vascular accident) HTN (hypertension) Hyperlipidemia Surgical History Surgical History Hx of CABG x1 2008 Family History Family History Sibling Patient's sister is in good health Family history of malignant melanoma Mother Colon cancer Unknown Hypertension Social History Social History Social History: Caffeine-occasional coffee/soda Smoking status: Never smoker Alcohol intake: never Substance use: never Substance use type: does not use Do You Feel Safe in your Home?: Yes Lack of Transportation: No Lack of Food: Never True Current Housing: I Do Not Have Housing Concerned About Future Housing: No Difficulty Paying Gas/Electric Bills: No Difficulty Paying for Meds: No Currently Unemployed: No Education: High School Diploma/GED Difficulty w/ Childcare or Family Care: No Living arrangements: other Additional living arrangements comments: [facility]DEPENDENT LIVING AT [facility] concerns: No Meds Home Medications and Allergies Home Medications Medication Instructions Recorded Confirmed Type triamcinolone acetonide 0.1 % 1 applic topical BID #80 grams 09/25/22 11/14/23 Rx topical cream clopidogrel 75 mg tablet 75 mg PO DAILY #90 tabs 01/11/23 02/28/24 Rx metoprolol tartrate 50 mg tablet 50 mg PO DAILY #90 tabs 05/20/23 02/28/24 Rx pravastatin 20 mg tablet 20 mg PO DAILY #90 tabs 07/10/23 02/28/24 Rx tramadol 50 mg tablet 50 mg PO Q6H PRN pain #12 tabs 07/10/23 11/14/23 Rx citalopram 10 mg tablet 10 mg PO DAILY #90 tabs 08/05/23 02/28/24 Rx hydroxyzine pamoate 25 mg capsule See Rx Instructions .Route 11/14/23 02/28/24 History .COMPLEX PRN Anxiety acetaminophen 325 mg tablet 650 mg PO Q4H PRN Pain 02/28/24 02/28/24 History amlodipine 10 mg tablet 10 mg PO DAILY 02/28/24 02/28/24 History chlorthalidone 25 mg tablet 25 mg PO DAILY 02/28/24 02/28/24 History magnesium hydroxide 30 ml PO DAILY PRN Constipation 02/28/24 02/28/24 History nitroglycerin 0.4 mg sublingual 0.4 mg sublingual Q5MIN PRN Chest 02/28/24 Rx tablet (Nitrostat) Pain #21 tabs quetiapine 25 mg tablet 12.5 mg PO HS 02/28/24 02/28/24 History quetiapine 25 mg tablet 25 mg PO HS 02/28/24 02/28/24 History trazodone 50 mg tablet 50 mg PO HS PRN Insomnia 02/28/24 02/28/24 History Allergies Allergy/AdvReac Type Severity Reaction Status Date / Time oxycodone [From Percocet] AdvReac Hallucinati Verified 11/14/23 11:08 ng Vital Signs Vital Signs - 24 hr 02/27/24 17:53 02/27/24 21:17 02/27/24 21:20 Temperature 37.0 C Pulse Rate 52 L 48 L Respiratory Rate 16 Blood Pressure 180/49 H Pulse Oximetry 98 Oxygen Delivery Room Air 02/28/24 00:13 02/28/24 00:15 02/28/24 00:17 Temperature Pulse Rate 52 L 42 L Respiratory Rate 15 19 20 Blood Pressure 180/64 H Pulse Oximetry 97 98 Oxygen Delivery 02/28/24 00:30 02/28/24 00:32 02/28/24 00:45 Temperature Pulse Rate 52 L 45 L 42 L Respiratory Rate 14 14 18 Blood Pressure 182/81 H Pulse Oximetry 98 97 96 Oxygen Delivery 02/28/24 00:47 02/28/24 01:00 02/28/24 01:02 Temperature Pulse Rate 46 L 44 L 43 L Respiratory Rate 21 H 16 20 Blood Pressure 186/41 H 186/55 H Pulse Oximetry 99 99 100 Oxygen Delivery 02/28/24 01:15 02/28/24 01:16 02/28/24 01:31 Temperature Pulse Rate 46 L 47 L 46 L Respiratory Rate 25 H 22 H 20 Blood Pressure 181/74 H 183/58 H Pulse Oximetry 99 98 98 Oxygen Delivery 02/28/24 01:47 02/28/24 02:54 02/28/24 03:00 Temperature Pulse Rate 49 L 59 L 48 L Respiratory Rate 14 20 15 Blood Pressure Pulse Oximetry 91 96 96 Oxygen Delivery 02/28/24 03:15 02/28/24 03:30 02/28/24 04:15 Temperature Pulse Rate 43 L 57 L 61 Respiratory Rate 12 18 12 Blood Pressure Pulse Oximetry 96 96 100 Oxygen Delivery 02/28/24 04:40 02/28/24 04:51 02/28/24 08:00 Temperature Pulse Rate 61 46 L Respiratory Rate 12 Blood Pressure 184/60 H Pulse Oximetry 100 Oxygen Delivery Room Air 02/28/24 09:00 Temperature Pulse Rate 56 L Respiratory Rate Blood Pressure Pulse Oximetry Oxygen Delivery Exam Narrative: GENERAL: Elderly, somewhat frail-appearing, non-toxic, in no acute distress. HEAD: Normocephalic, atraumatic. RESPIRATORY: Airway patent, respirations nonlabored. Clear to auscultation bilaterally, no rales, rhonchi, wheezing. CARDIOVASCULAR: Regular rate and rhythm without murmurs, rubs, or gallops. Peripheral pulses intact. Chest wall tenderness MUSCULOSKELETAL: Moves all extremities. No gross deformities. SKIN: Warm, dry, normal color. NEURO: A&O X3. Speech clear. No ataxic movements. PSYCHIATRIC: Appropriate mood and affect. Normal interaction. Results Labs and Meds 02/27/24 21:24 02/27/24 21:24 Lab results: Cardiac Enzymes 02/27/24 02/27/24 Range/Units 21:24 21: AST 33 (14-36) U/L Troponin I < 0.012 < 0.012 (0.000-0.034) ng/mL Coagulation 02/27/24 Range/Units 21:24 PT 13.2 (11.1-14.7) Seconds APTT 31.2 (22.3-36.8) Seconds CBC 02/27/24 Range/Units 21:24 WBC 7.5 (4.5-10.0) K/mm3 RBC 4.17 L (4.2-5.4) M/mm3 Hgb 12.7 (12.0-15.0) g/dL Hct 38.6 (37.0-47.0) % Plt Count 232 (150-375) k/mm3 Lymph # (Auto) 2.16 (0.9-3.2) K/mm3 [place] # (Auto) 0.9 H (0.1-0.6) K/mm3 Eos # (Auto) 0.3 (0-0.3) K/mm3 Baso # (Auto) 0.1 (0.0-0.1) K/mm3 Comprehensive Metabolic Panel 02/27/24 Range/Units 21:24 Sodium 137 (137-145) mmol/L Potassium 3.8 (3.4-5.0) mmol/L Chloride 104 (98-107) mmol/L Carbon Dioxide 31 H (22-30) mmol/L BUN 24 H D (7-17) mg/dL Creatinine 1.50 H (0.7-1.0) mg/dL Glucose 102 (65-110) mg/dL Calcium 9.6 (8.4-10.2) mg/dL AST 33 (14-36) U/L ALT 18 (6-35) U/L Alkaline Phosphatase 110 (38-126) U/L Total Protein 7.0 (6.3-8.2) g/dL Albumin 4.1 (3.5-5.1) g/dL Intake and Output 02/27/24 02/28/24 02/28/24 23:59 07:59 15:59 Intake Total 250 Balance 250 Intake: Oral 250
--- NOTE | 2024-03-15 06:17 | PM.SD2 ---
Same Day Admit/Disch: HPI History of Present Illness Chief complaint: chest pain Narrative: Tali Land is a 88 year old female ER-HPI narrative: Patient is an 88-year-old female who presents the ED via EMS with report of chest pain. Patient is a resident of [facility]. She reports she was walking in the dining room around dinner time when she began having midsternal chest pain. States pain lasted a few minutes before resolving with rest. She did feel dizzy and short of breath with the pain. Denies current chest pain. Denies current dizziness. Denies recent cough or cold symptoms. Today patient stats feels better she does c/o chest pain which is reproducible, her initial trope is normal, plan is to cardiac ECHO and paitnet will be seen by intermission coordinator, patient daughter is present in the room. [facility] Past Medical History Medical History Cardiomyopathy Chronic kidney disease, stage 3 (moderate) CVA (cerebral vascular accident) HTN (hypertension) Hyperlipidemia Surgical History Surgical History Hx of CABG x1 2009 Family History Family History Sibling Patient's sister is in good health Family history of malignant melanoma Mother Colon cancer Unknown Hypertension Social History Social History Social History: Caffeine-occasional coffee/soda Smoking status: Never smoker Alcohol intake: never Substance use: never Substance use type: does not use Do You Feel Safe in your Home?: Yes Lack of Transportation: No Lack of Food: Never True Current Housing: I Do Not Have Housing Concerned About Future Housing: No Difficulty Paying Gas/Electric Bills: No Difficulty Paying for Meds: No Currently Unemployed: No Education: High School Diploma/GED Difficulty w/ Childcare or Family Care: No Living arrangements: other Additional living arrangements comments: INDEPENDENT LIVING AT [facility] Spiritual care concerns: No Same Day Admit/Disch: Med Pre-admit Medications Home Medications Medication Instructions Recorded Confirmed Type triamcinolone acetonide 0.1 % 1 applic topical BID #80 grams 09/25/22 11/14/23 Rx topical cream clopidogrel 75 mg tablet 75 mg PO DAILY #90 tabs 01/11/23 02/28/24 Rx metoprolol tartrate 50 mg tablet 50 mg PO DAILY #90 tabs 05/20/23 02/28/24 Rx pravastatin 20 mg tablet 20 mg PO DAILY #90 tabs 07/10/23 02/28/24 Rx tramadol 50 mg tablet 50 mg PO Q6H PRN pain #12 tabs 07/10/23 11/14/23 Rx citalopram 10 mg tablet 10 mg PO DAILY #90 tabs 08/05/23 02/28/24 Rx hydroxyzine pamoate 25 mg capsule See Rx Instructions .Route 11/14/23 02/28/24 History .COMPLEX PRN Anxiety acetaminophen 325 mg tablet 650 mg PO Q4H PRN Pain 02/28/24 02/28/24 History amlodipine 10 mg tablet 10 mg PO DAILY 02/28/24 02/28/24 History chlorthalidone 25 mg tablet 25 mg PO DAILY 02/28/24 02/28/24 History magnesium hydroxide 30 ml PO DAILY PRN Constipation 02/28/24 02/28/24 History nitroglycerin 0.4 mg sublingual 0.4 mg sublingual Q5MIN PRN Chest 02/28/24 Rx tablet (Nitrostat) Pain #21 tabs quetiapine 25 mg tablet 12.5 mg PO HS 02/28/24 02/28/24 History quetiapine 25 mg tablet 25 mg PO HS 02/28/24 02/28/24 History trazodone 50 mg tablet 50 mg PO HS PRN Insomnia 02/28/24 02/28/24 History Review of Systems Review of Systems Per HIP Exam Narrative: Patient is comfortable, NAD HEENT: eyes are clear and none icteric LUNGS:CTA HEART: RR S1S2 ABD: BS+, Soft and nontender Lower extremities: no edema SKIN: nonjaundiced Neuro: grossly intact. DS: Summary Hospital Course Reason for hospitalization: Chest pain Hospital Course: patient presented with chest pain which is reproducible most likely patient has costochondritis, patient was seen by the cardilogist, patient had a cardiac cath last year which was normal, to further evaluate the intermission coordinator ordered Marily scan however patient wish to go home as her symptoms have improved and her daughter is comfortable taking patient home. will discharge home today. Time Spent with Patient Time attestation: Total time spent providing and/or coordinating discharge services: DS: Admitting Diagnosis Discharge Date 02/28/24 Admitting Diagnosis chest pain DS: Discharge Diagnosis Discharge Diagnosis (1) Atypical chest pain: Code(s): R07.89 - Other chest pain Status: Acute (2) Chronic kidney disease, stage 3 (moderate): Qualifiers: Chronic kidney disease stage 3 subtype: stage 3a (GFR 45-59) Qualified Code(s): N18.31 - Chronic kidney disease, stage 3a Code(s): N18.3 - Chronic kidney disease, stage 3 (moderate) Status: Chronic Discharge Plan Discharge Attending physician on discharge: Lydia Echeverria Consulting providers: Yusra Garcia; Teja Kumar; Brad Santiago; Norris Francisco V.; Manuel Amezquita Discharging Clinician: Lydia Echeverria [facility] Activity: as tolerated Diet: heart healthy Discharge Instructions: patient to follow up with her primary care as soon as possible, patient is instructed if any symptoms worsen to go to nearest ER. Patient Instructions: Antibiotic Form Stand Alone Forms: General Discharge Information Follow-up/Referrals: Mari Acuña DO [Primary Care Provider] - Discharge Medications: New nitroglycerin [Nitrostat] 0.4 mg Tablet, Sublingual 0.4 mg sublingual Q5MIN PRN (Reason: Chest Pain) Qty: 21 0RF Continued hydroxyzine pamoate 25 mg capsule See Rx Instructions .ROUTE .COMPLEX PRN (Reason: Anxiety) Rx Instructions: 25 mg PO Q 4 hours PRN, Anxiety tramadol 50 mg tablet 50 mg PO Q6H PRN (Reason: pain) Qty: 12 0RF quetiapine 25 mg tablet 12.5 mg PO HS quetiapine 25 mg tablet 25 mg PO HS acetaminophen 325 mg Tablet 650 mg PO Q4H PRN (Reason: Pain) trazodone 50 mg Tablet 50 mg PO HS PRN (Reason: Insomnia) chlorthalidone 25 mg tablet 25 mg PO DAILY magnesium hydroxide 400 mg/5 ml suspension 30 ml PO DAILY PRN (Reason: Constipation) amlodipine 10 mg tablet 10 mg PO DAILY Rx Instructions: TAKE 1 TABLET BY MOUTH EVERY DAY triamcinolone acetonide 0.1 % cream 1 applic TOPICAL BID Qty: 80 1RF clopidogrel 75 mg tablet 75 mg PO DAILY Qty: 90 1RF Hold Instructions: Resume on 07/14/23. May resume 4 days after surgery metoprolol tartrate 50 mg tablet 50 mg PO DAILY Qty: 90 1RF pravastatin 20 mg tablet 20 mg PO DAILY Qty: 90 1RF citalopram 10 mg tablet 10 mg PO DAILY Qty: 90 0RF Date of admission: 02/28/24 03:20 Primary Care Provider: Mari Acuña Admitting Provider: Idris York V. Attending physician on admission: Lydia Echeverria Condition: Stable
== END 2024-02-28 12:52 ==
LOC: ANHED 02-28 02:59 → ANH3MEDSUR 02-28 12:42
PROVIDERS: Emergency Medicine; Admitting Provider Internal Medicine; Emergency Provider Physician Assistant; PCP Family Medicine; Visit Provider Family Medicine
DX: R07.89 Other chest pain (principal); I12.9 Hypertensive chronic kidney disease with stage 1 through stage 4 chronic kidney disease, or unspecified chronic kidney disease; N18.31 Chronic kidney disease, stage 3a; R00.1 Bradycardia, unspecified; I44.7 Left bundle-branch block, unspecified; I42.9 Cardiomyopathy, unspecified; R06.02 Shortness of breath; E78.5 Hyperlipidemia, unspecified; Z79.899 Other long term (current) drug therapy; Z95.1 Presence of aortocoronary bypass graft; Z86.73 Personal history of transient ischemic attack (TIA), and cerebral infarction without residual deficits
CPT/HCPCS: 36415; 71046; 71275; 80053; 83690; 83735; 83880; 84484; 85025; 85380; 85610; 85730; 93005; 99285; A9270; G0378; Q9967

== ENCOUNTER 2024-03-27 12:53 | Outpatient (CLI) | payer OTHER, SELFPAY | END 2024-03-27 12:54 | disposition home or self-care (01) | LOC: ANHAUDASC 12:53 | PROVIDERS: PCP Family Medicine; Visit Provider Student in an Organized Health Care Education/Training Program | DX: H90.3 Sensorineural hearing loss, bilateral (principal) | CPT/HCPCS: 92557 ==

== ENCOUNTER 2024-06-19 07:12 | Emergency (ER) | payer OTHER, SELFPAY ==
[2024-06-19] VITALS (8 sets, daily range): BP systolic 136–163; BP diastolic 60–71; PULSE 50–60; RESP 12–18; TEMP 36.4–36.6; O2SAT 96–98
--- NOTE | ~2024-06-19 | CT_ITS ---
EXAMINATION: CT cervical spine wo con DATE: 06/19/2024 08:09 INDICATION: Head injury. TECHNIQUE: Computed tomography (CT) of the cervical spine was performed without intravenous contrast. Automated exposure control and iterative reconstruction technique were employed. The dose-length pro duct was 167.33 mGy-cm. COMPARISON: None FINDINGS: There is 2 mm anterolisthesis of C3 on C4 and C4 on C5. Vertebral body heights are normal. There is mildly decreased disc height at C3-C4 and severely decreased disc height from C4-C5 through C6-C7. The following disc levels are specifically discussed: C2-C3: There is mild right uncovertebral joint osteoarthritis. There is severe bilateral facet joint osteoarthritis. There is mild right neural foraminal stenosis. There is no central canal stenosis. C3-C4: There is mild right and severe left uncovertebral joint osteoarthritis. There is severe bilate ral facet joint osteoarthritis. There is mild right and moderate left neural foraminal stenosis. Ther e is mild central canal stenosis. C4-C5: There is severe bilateral uncovertebral joint osteoarthritis. There is severe bilateral facet joint osteoarthritis. There is mild right and moderate left neural foraminal stenosis. There is mild central canal stenosis. C5-C6: There is severe bilateral uncovertebral joint osteoarthritis. There is moderate bilateral face t joint osteoarthritis. There is moderate bilateral neural foraminal stenosis. There is moderate cent ral canal stenosis. C6-C7: There is severe bilateral uncovertebral joint osteoarthritis. There is severe bilateral facet joint osteoarthritis. There is mild bilateral neural foraminal stenosis. There is mild central canal stenosis. C7-T1: There is mild bilateral uncovertebral joint osteoarthritis. There is mild right and severe lef t facet joint osteoarthritis. There is mild left neural foraminal stenosis. There is no central canal stenosis. IMPRESSION: 1. No fracture. 2. Severe cervical spondylosis. Reviewed, dictated and finalized at location L.
--- NOTE | ~2024-06-19 | CT_ITS ---
EXAMINATION: CT brain wo con DATE: 06/19/2024 08:09 INDICATION: Head injury. Fall. TECHNIQUE: Computed tomography (CT) of the head was performed without intravenous contrast. The mA wa s adjusted according to patient size. Iterative reconstruction technique was employed. The dose-lengt h product was 908.00 mGy-cm. COMPARISON: Head CT 11/08/2021 FINDINGS: There are scattered areas of low attenuation in the cerebral white matter. There is no intr acranial hemorrhage, acute infarction, or abnormal intracranial mass lesion. The ventricles are nathan l in size. There are likely changes of ocular lens replacement surgeries. There is near complete opac ification of left frontal sinus with thickening and sclerosis of the sinus adams, consistent with chr onic sinusitis. There is mucosal thickening in the left anterior ethmoid sinuses. The mastoid air reji ls are normal. There is a left-sided scalp laceration with skin maira. IMPRESSION: 1. Worsened extensive nonspecific cerebral white matter disease, which likely represents chronic smal l vessel ischemic disease. 2. Chronic sinusitis. Reviewed, dictated and finalized at location L. IMPRESSION: 1. Worsened extensive nonspecific cerebral white matter disease, which likely r epresents chronic small vessel ischemic disease. 2. Chronic sinusitis.
--- OUTSIDE RECORDS SUMMARY | 2024-06-19 07:53 | XMS_ITS | CONTINUITY OF CARE DOCUMENT ---
Author Name freddie frazier Address Unknown Organization [facility] Address [address] [place] [address] Phone [phone] Care Team Providers Care Pan Puller Name Role Phone freddie frazier Unavailable Unavailable
--- OUTSIDE RECORDS SUMMARY | 2024-06-19 07:53 | XMS_ITS | Referral Summary ---
Author Organization [facility] Address [address] [place] [address] Care Team Providers Care Rn Womens Health Name Role Phone Jarrod Eason MD Unavailable [phone] Davian Mehta DO Primary Care Provider [phone] Source Comments [facility],non-owned Affiliates and Associated Physician Practices is amultiple site organization consisting of ambulatory clinics and hospital sitesin [place], [place], [place] and [place]. This disclosure is being madepursuant to the Care Everywhere program and may not contain all information available regarding this patient. Last updated 17.[facility] Allergies Active Allergy Reactions Criticality Noted Date Comments Oxycodone-Acetaminophen Vision Changes 09/07/19 11 hallucinations Medications * Be aware that medications may not be up to date on this document. Alwaysverify current medications with the patient. Medication Sig Dispensed Refills Start Date End Date Status diclofenac sodium (VOLTAREN) 50 MG tablet Take 1 Tab by mouth 2 times daily. 60 Tab 4 09/06/2010 Active METOPROLOL TARTRATE PO 25 mg 2 times daily. Active enalapril (VASOTEC) 20 MG tablet 2 Tabs 2 times daily. Active amLODIPine (NORVASC) 5 MG tablet daily. Active irbesartan (AVAPRO) 300 MG tablet daily. Active rosuvastatin (CRESTOR) 10 MG tablet daily. Active aspirin 81 MG tablet daily. Acti ve furosemide (LASIX) 40 MG tablet as needed. Active Potassium Chloride (KLOR-CON 10 PO) as needed. Active metronidazole (METROLOTION) 0.75 % LOTN 2 times daily. Active Active Problems Problem Noted Date Diagnosed Date Degeneration of lumbar or lumbosacral interverte bral disc 09/11/2010 Social History Tobacco Use Types Packs/Day Years Used Date Smoking Tobacco: Never Smokeless Tobacco: Never Alcohol Use Standard Drinks/Week Comments Yes 0 (1 standard drink = 0.6 oz pur e alcohol) occassional on Holiday Sex and Gender Information Value Date Recorded Sex Assigned at Not on file Gender Identity Not on file Sexual Orientation Not on file Last Filed Vital Signs Vital Sign Reading Time Taken Comments Blood Pressure - - Pulse - - Temperature - - Respiratory Rate - - Oxygen Saturation - - Inhaled Oxygen Concentration - - Weight 72.6 kg (160 lb) 09/06/2010 1:37 PM CDT Height 160 cm (5' 3 ) 09/06/2010 1:37 PM CDT Body Mass Index 28.34 09/06/2010 1:37 PM CDT Plan of Treatment Not on file Insurance Payer Benefit Plan / Group Subscriber ID Effective Dates Phone Address Type ESSENCE MEDICARE ESSENCE MEDICARE ADV HMO/POS [id number] Effective for all dates [address] [place] [address] Medicare- Managed Care SELF PAY NO INSURANCE SELF PAY NO INSURANCE Effective for all dates [place] Self Pay E[employer]ENCE MEDICARE ESSENCE MEDICARE ADV HMO/POS [id number] Effective for all dates [address] [place] [address] Medicare- Managed Care SELF PAY NO INSURANCE SELF PAY NO INSURANCE Effective for all dates [place] Self Pay E[employer]ENCE MEDICARE ESSENCE MEDICARE ADV HMO/POS [id number] Effective for all dates [address] [place] [address] Medicare- Managed Care SELF PAY NO INSURANCE SELF PAY NO INSURANCE Effective for all dates [place] Self Pay E[employer]ENCE MEDICARE ESSENCE MEDICARE ADV HMO/POS [id number] Effective for all dates [address] [place] [address] Medicare- Managed Care SELF PAY NO INSURANCE SELF PAY NO INSURANCE Effective for all dates [place] Self Pay E[employer]ENCE MEDICARE ESSENCE MEDICARE ADV HMO/POS [id number] Effective for all dates [address] [place] [address] Medicare- Managed Care SELF PAY NO INSURANCE SELF PAY NO INSURANCE Effective for all dates [place] Self Pay E[employer]ENCE MEDICARE ESSENCE MEDICARE ADV HMO/POS [id number] Effective for all dates [address] [place] [address] Medicare- Managed Care SELF PAY NO INSURANCE SELF PAY NO INSURANCE Effective for all dates [place] Self Pay ESSENCE MEDICARE [facility] MEDICARE ADV HMO/POS [id number] 04/08/2021-Prese nt ESSENCE CLAIMS [address] [place] [address] Medicare- Managed Care ESSENCE MEDICARE [facility] MEDICARE ADV HMO/POS [id number] 04/08/2021-Prese nt ESSENCE CLAIMS [address] [place] [address] Medicare- Managed Care ESSENCE MEDICARE [facility] MEDICARE ADV HMO/POS [id number] 04/08/2021-Prese nt ESSENCE CLAIMS [address] [place] [address] Medicare- Managed Care Care Teams Rn Womens Health Relationship Specialty Start Date End Date Davian Mehta DO [address] [place] [id number] PCP - General 01/17/22 Jarrod Eason MD Internal Medicine 09/06/10
--- OUTSIDE RECORDS SUMMARY | 2024-06-19 07:53 | XMS_ITS | Clinical Summary ---
Author Organization [facility] Address [address] [place] [address] Care Team Providers Care Firer Tunnel Kiln Name Role Phone Jarrod Eason MD Unavailable [phone] Davian Mehta DO Primary Care Provider [phone] Source Comments [facility],non-owned Affiliates and Associated Physician Practices is amultiple site organization consisting of ambulatory clinics and hospital sitesin [place], [place], [place] and [place]. This disclosure is being madepursuant to the Care Everywhere program and may not contain all information available regarding this patient. Last updated 17.[facility] Allergies Active Allergy Reactions Criticality Noted Date [...] 09/06/2010 1:37 PM CDT Plan of Treatment Health Maintenance Due Date Last Done Comments BONE DENSITY TESTING 1935 MEDICARE AWV 12 MONTHS 1936 DTAP/TDAP/TD VACCINES (1 - Tdap) 11/30/1955 PNEUMOCOCCAL VACCINE 50+ (1 of 1 - PCV) 1986 ZOSTER VACCINE (1 of 2) 1986 Respiratory Syncytial Virus (RSV) Vaccine Pt: or over 60 yrs (1 - 1-dose 75+ series) 11/30/2011 COVID-19 VACCINE ( - 2023-2 5 season) 2023 INFLUENZA VACCINE (#1) 2023 DEPRESSION SCREENING 04/08/2024 MEDICARE AWV CALENDAR YEAR 2024 HEPATITIS B VACCINE Aged Out No longe r eligible based on patient's age to complete this topic HIB VACCINE Aged Out No longer eligi ble based on patient's age to complete this topic HPV VACCINE Aged Out No longer eligi ble based on patient's age to complete this topic MENINGOCOCCAL (Group B) VACC INE SHARED DECISION-MAKING Aged Out No longer eligibl e based on patient's age to complete this topic MENINGOCOCCAL GROUPS A/C/Y/W VACCINE Aged Out No longer eligible b ased on patient's age to complete this topic Insurance Payer Benefit Plan / Group Subscriber ID Effective Dates Phone Address Type ESSENCE MEDICARE ESSENCE MEDICARE ADV HMO/POS [id number] Effective for all dates [address] [place] [address] Medicare- Managed Care SELF PAY NO INSURANCE SELF PAY NO INSURANCE Effective for all dates [place] Self Pay ESSENCE MEDICARE ESSENCE MEDICARE ADV HMO/POS [id number] Effective for all dates [address] [place] [address] Medicare- Managed Care SELF PAY NO INSURANCE SELF PAY NO INSURANCE Effective for all dates [place] Self Pay ESSENCE MEDICARE ESSENCE MEDICARE ADV HMO/POS [id number] Effective for all dates [address] [place] [address] Medicare- Managed Care SELF PAY NO INSURANCE SELF PAY NO INSURANCE Effective for all dates [place] Self Pay E[employer]ENCE MEDICARE ESSENCE MEDICARE ADV HMO/POS [id number] Effective for all dates [address] [place] [address] Medicare- Managed Care SELF PAY NO INSURANCE SELF PAY NO INSURANCE Effective for all dates [place] Self Pay ESSENCE MEDICARE ESSENCE MEDICARE ADV HMO/POS [id number] Effective for all dates [address] [place] [address] Medicare- Managed Care SELF PAY NO INSURANCE SELF PAY NO INSURANCE Effective for all dates [place] Self Pay E[employer]ENCE MEDICARE ESSENCE MEDICARE ADV HMO/POS [id number] Effective for all dates [address] [place] [address] Medicare- Managed Care SELF PAY NO INSURANCE SELF PAY NO INSURANCE Effective for all dates [place] Self Pay ESSENCE MEDICARE ESSENCE MEDICARE ADV HMO/POS [id number] 04/08/2021-Prese nt ESSENCE CLAIMS [address] [place] [address] Medicare- Managed Care E[employer]ENCE MEDICARE ESSENCE MEDICARE ADV HMO/POS [id number] 04/08/2021-Prese nt ESSENCE CLAIMS [address] [place] [address] Medicare- Managed Care ESSENCE MEDICARE ESSENCE MEDICARE ADV HMO/POS [id number] 04/08/2021-Prese nt ESSENCE CLAIMS [address] [place] [address] Medicare- Managed Care Care Teams Firer Tunnel Kiln Relationship Specialty Start Date End Date Davian Mehta DO [address] [place] [id number] PCP - General 01/17/22 Jarrod Eason MD Internal Medicine 09/06/10
--- OUTSIDE RECORDS SUMMARY | 2024-06-19 07:53 | XMS_ITS | Clinical Summary ---
Author Organization [facility] [address] Address [address] [place] [address] Care Team Providers Care Glassware Maker Name Role Phone Davian Mehta DO Primary Care Provider [phone] Allergies Active Allergy Reactions Criticality Noted Date Comments Acetaminophen Oxycodone Oxycodone-Acetaminophen Vision changes Medium 09/07/19 11 hallucinations Medications clopidogrel (PLAVIX) 75 mg tablet take 1 by Oral route every day 0 0 09/28/2013 Active pravastatin (PRAVACHOL) 20 mg tablet take 1 Tablet by oral route every day 0 0 08/30/2015 Active metoprolol XL (TOPROL XL) 50 mg 24 hr tablet take 1 Tablet by oral route every day 30 11 08/30/2015 Active amLODIPine (NORVASC) 10 mg tablet take 1 tablet (10MG) by oral route every day 90 3 11/21/2011 Active aspirin (Enteric Coated Aspirin) 81 mg enteric coated tabletIndication s:History of TIA (transient ischemic attack) Take 1 tablet (81 mg total) by mouth daily 10/16/2019 Active chlorthalidone (HYGROTON) 25 mg tablet TAKE 1 TABLET (25 MG TOTAL) BY MOUTH DAILY. 90 tablet 10/07/2023 Active Active Problems Problem Noted Date Diagnosed Date Other chest pain 10/10/2022 Abnormal nuclear stress test 10/10/2022 Transient ischemic attack (TIA) 11/09/2021 S/P CABG (coronary artery bypass graft) 10/31/19 17 Cardiomyopathy, hypertrophic 10/30/2016 Degeneration of lumbar or lumbosacral interverte bral disc 09/11/2010 Immunizations Immunization Administration Dates Next Due Influenza, Quadrivalent, Hig h Dose, Preservative Free, Intrr 12/04/2019 Influenza, Trivalent, Adjuvanted, Intramuscular 01/20/2019 Influenza, Trivalent, High D ose, Split, Preservative Free, Intramuscular 12/29/2017,01/04/2015 Influenza, Trivalent, IM (MDV) 02/02/2014,2012 Pneumococcal Conjugate PCV 13 01/20/2019 Surgical History Surgery Date Site/Laterality Comments CARDIAC SURGERY Septal myectomy CORONARY ARTERY BYPASS GRAFT 04/08/2005 - 04/07/2006 1 vessel Medical History Medical History Date Comments Hypertension Hypertension TIA (transient ischemic attack) Social History Tobacco Use Types Packs/Day Years Used Date Smoking Tobacco: Never Smokeless Tobacco: Never Tobacco Cessation:Counseling Given: Not Answered Alcohol Use Standard Drinks/Week Comments Yes 0 (1 standard drink = 0.6 oz pur e alcohol) 2 times a year PHQ-2 Answer Date Recorded PHQ-2 Total Score (If total score is 3 or more points, staff should administer the PHQ-9) 0 11/09/2021 Comments Unknown Sex and Gender Information Value Date Recorded Sex Assigned at Not on file 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 Gender Identity Not on file Sexual Orientation Not on file Obstetrics History Last Filed Vital Signs Vital Sign Reading Time Taken Comments Blood Pressure 154/70 10/10/2022 9:09 AM CDT Pulse 60 10/10/2022 9:09 AM CDT Temperature 36.8 C (98.2 F) 11/11/2021 11:36 AM CDT Respiratory Rate 20 11/11/2021 11:36 AM CDT Oxygen Saturation 97% 10/10/2022 9:09 AM CDT Inhaled Oxygen Concentration - - Weight 75.8 kg (167 lb) 10/10/2022 9:09 AM CDT Height 160 cm (5' 3 ) 10/10/2022 9:09 AM CDT Body Mass Index 29.58 10/10/2022 9:09 AM CDT Plan of Treatment Health Maintenance Due Date Last Done Comments DTaP/Tdap/Td Vaccine (1 - Tdap) 11/30/1946 Hepatitis B Screening 1954 Zoster Vaccine (1 of 2) 1986 Well Visit 65+ 2001 Pneumococcal vaccine 65+ (2 of 2 - PPSV23) 01/21/2020 01/20/2019 Depression Screening 11/08/2022 11/08/2021 Fall Risk Assessment 11/11/2022 11/11/2021 Influenza Vaccine (#1) 2023 , 01/20/2019, 12/29/2017, Additional history exists Insurance [facility] Advance Directives For more information, please contact: [phone] * Full Code (Latest Code Status on File) Date Activated Date Inactivated Comments 11/09/2021 6:48 AM 11/11/2021 6:43 PM Care Teams Glassware Maker Relationship Specialty Start Date End Date Davian Mehta DO PCP - General Family Medicine 07/05/22
--- OUTSIDE RECORDS SUMMARY | 2024-06-19 07:53 | XMS_ITS | Referral Summary ---
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
--- OUTSIDE RECORDS SUMMARY | 2024-06-19 07:53 | XMS_ITS ---
Author Organization [facility] [employer] [facility] Address [address] [facility] [address] [place] [address] Care Team Providers Care Field Pipelines Supervisor Name Role Phone Davian Mehta DO Primary Care Provider UnavailDayna Padgett Unavailable [phone] Emory Coleman Unavailable [phone] Social History Sex Assigned At : Social History Observation Description Sex Assigned At Female Encounters Encounter Location Date Provider Diagnosis [facility] [employer] [facility] [address] [facility] [address] [place] [address] 05/22/2024 Emory Coleman Plan Of Treatment Next Appt Details Provider Name:Dayna Giang, 08/27/2024 01:30:00 PM, [address], [facility] [address], [place], [address], Progress Notes * Tali LAND MDOB:[birth year] (88 yo F)Acc No.[id number]:05/22/2024 Patient: Matilde CAMILOCORYTali :1935 A ge:88 Y S ex:Female Address:[address] [place], [address] * true * Date: Generated for Printi ng/Faxing/eTransmitting on: 0 06/19/2024 07:53 AM CDT
--- OUTSIDE RECORDS SUMMARY | 2024-06-19 07:53 | XMS_ITS ---
Author Organization [facility] [employer] [facility] Address [address] [place] [address] Care Team Providers Care Manager Of Customer Billing Name Role Phone Davian Mehta DO Primary Care Provider Unavailab Dayna Larry Unavailable [phone] Emory Coleman Unavailable [phone] REASON FOR VISIT urgent medication clarification Social History Sex Assigned At : Social History Observation Description Sex Assigned At Female Encounters Encounter Location Date Provider Diagnosis [facility] [employer] [facility] [address] [place] [address] 05/22/2024 Emory Coleman Plan Of Treatment Next Appt Details Provider Name:Dayna Giang, 08/27/2024 01:30:00 PM, [facility], [address], [place], [address], Progress Notes * Tali LAND MDOB:[birth year] (88 yo F)Acc No.[id number]:05/22/2024 Patient: Matilde CAMILOCORYTali :1935 A ge:88 Y S ex:Female [address] [place], [address] * true * Date: Generated for Printi ng/Faxing/eTransmitting on: 0 06/19/2024 07:52 AM CDT
--- OUTSIDE RECORDS SUMMARY | 2024-06-19 07:53 | XMS_ITS | Patient Health Summary ---
Author Organization [facility] Address [address] [place] [address] Care Team Providers Care Brown Sourer Name Role Phone Jarrod Eason MD Unavailable [phone] Davian Mehta DO Primary Care Provider Note from [facility],non-owned Affiliates and Associated Physician Practices is amultiple site organization consisting of ambulatory clinics and hospital sitesin [place], [place], [place] and [place]. This disclosure is being madepursuant to the Care Everywhere program and may not contain all information available regarding this patient. Last updated 17.[facility] Allergies * Oxycodone-Acetaminophen(Vision Changes) Medications * Be aware that medications may not be up to date on this document. Alwaysverify current medications with the patient. * diclofenac sodium (VOLTAREN) 50 MG tablet(Started 09/06/2010) Take 1 Tab by mouth 2 times daily. 4 refills left * METOPROLOL TARTRATE PO 25 mg 2 times daily. * enalapril (VASOTEC) 20 MG tablet 2 Tabs 2 times daily. * amLODIPine (NORVASC) 5 MG tablet daily. * irbesartan (AVAPRO) 300 MG tablet daily. * rosuvastatin (CRESTOR) 10 MG tablet daily. * aspirin 81 MG tablet daily. * furosemide (LASIX) 40 MG tablet as needed. * Potassium Chloride (KLOR-CON 10 PO) as needed. * metronidazole (METROLOTION) 0.75 % LOTN 2 times daily. Active Problems Problem Noted Date Diagnosed Date [...] Mass Index 28.34 09/06/2010 1:37 PM CDT Procedures * DERMATOPATHOLOGY(Performed 07/11/2022) Performed for Neoplasm of uncertain behavior of skin * DERMATOPATHOLOGY(Performed 02/17/2014) * DERMATOPATHOLOGY(Performed 07/29/2012) Results * DERMATOPATHOLOGY (07/11/2022 12:00 AM CDT) Only the most recent of3 resultswithin the time period is included. Case Report Dermatopathology Report Case: [id number] Authorizing Provider: Alia Frausto, Collected: 07/11/2022 12:00 AM JIMMY Ordering Location: [facility] DermPath Lab Received: 07/12/2022 11:08 AM Pathologist: Arlen Pike MD Specimens: A) - Skin, left nasal dorsum B) - Skin, right neck 4:18 PM CDT DERMATOPATHOLOGY LABORATORY Final Diagnosis Specimen A. 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 Squamous Cell Carcinoma B: Basal Cell Carcinoma 3 4:18 PM CDT DERMATOPATHOLOGY LABORATORY Gross Description Specimen A: Received is one formalin filled container labeled with the patient's name and designated left nasal dorsum. The specimen consists of a shave biopsy measuring 6x6x1 mm. Jar 0. Specimen B: Received is one formalin filled container labeled with the patient's name and designated right neck. The specimen consists of three (3) pieces of a shave biopsy measuring 6x5x1, 3x1x1, 1x1x1 mm. Jar 0. 3 4:18 PM T DERMATOPATHOLOGY LABORATORY Microscopic Description Specimen A. SKIN, left nasal dorsum: The epidermis shows parakeratosis, full thickness disorderly maturation of keratinocytes, mitoses at different levels, and dyskeratotic cells. Specimen B. SKIN, right neck: Within the dermis there are aggregates of basaloid cells with a high nuclear to cytoplasmic ratio and peripheral palisading. 3 4:18 PM T DERMATOPATHOLOGY LABORATORY Disclaimer An external and internal positive and negative controls are appropriate for the histochemical, immunohistochemical and immunofluorescence stain(s) in this case (if any), except where stated explicitly. The performance characteristics of the stain(s) cited in this report were developed and its performance characteristic determined by the Dermatopathology Laboratory at [facility], directed by Dr. Malathi Pike. These tests need not be, and therefore are not, approved by the [place] Food and Drug Administration. The tests are used for clinical purposes. Billing Codes Specimen Charges Stain Charges 41679 39882 1 1 3 4:18 PM CDT DERMATOPATHOLOGY LABORATORY Embedded Images 3 4:18 PM CDT DERMATOPATHOLOGY LABORATORY Pathology/Cytology TISSUE SPECIMEN FROM SKIN / Unknown 07/11/2022 07/12/2022 11:08 AM CDT Miscellaneous samples (specimen) TISSUE SPECIMEN FROM SKIN / Unknown 07/11/2022 07/12/2022 11:08 AM CDT Alia Frausto PA-C LAB - PATHOL OGY/CYTOLOGY ORDERABLES DERMATOPATHOLOGY LABORATORY [facility] - Department of Dermatology [address], [address] [phone] Care Teams Brown Sourer Relationship Specialty Start Date End Date Davian Mehta DO [address] [place] [address] PCP - General 01/17/22 Jarrod Eason MD Internal Medicine 09/06/10
--- OUTSIDE RECORDS SUMMARY | 2024-06-19 07:53 | XMS_ITS | Patient Health Record ---
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 Name Role Phone Davian Mehta DO Primary Care Provider Unavailab Dayna Larry Unavailable [phone] Emory Coleman Unavailable [phone] Allergies Allergen (clinical drug ingredient) Drug/Non Drug Allergy documented on EMR Reaction Allergy Type Onset Date Status oxycodone Oxycodone Unknown Drug Allergy Active Results Component Value Reference Range Notes UDT Reviewed date:10/14/2023 09:35:33 AM Interpretation: Performing Lab: Notes/Report: THC N 0 - 50 ng/ml Cocaine N 0 - 300 ng/ml Amphetamine N 0 - 1000 ng/ml Buprenorphine (BUP) N 0 - 10 ng/ml Secobarbital (Bar) N 0 - 300 ng/ml Oxazepam (BZO) N 0 - 300 ng/ml 9-cwhazsiief-3,1-qoalhqqq-5,3-diphenylpyrrolidine (CANDE P) N 0 - 300 ng/ml Methamphetamine (MET) N 0 - 1000 ng/ml Methylenedioxymethamphetamine (MDMA) N 0 - 500 ng/ml Morphine (MOP 300/[id number]) N 0 - 300 ng/ml Methadone (MTD) N 0 - 300 ng/ml Phencyclidine (PCP) N 0 - 25 ng/ml Nortriptyline (TCA) N 0 - 1000 ng/ml x N 0 - 300 ng/ml Reason For Referral Reason Behavioral Health Diagnosis 1 Alzheimer's disease, unspecified (G30.9) Diagnosis 2 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, unspecified severity, 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) Referring Provider First Name Florence Referring Provider Last Name Eleazar RODRIGUEZ Referring Provider Speciality Family [facility] Referred Organization [facility] [employer] [facility] Referred Provider Emory Coleman Referred Address [address],[place], [place],[address], Referral Priority Routine Medications Medication SIG (Take, Route, Frequency, Duration) Notes Start Date End Date Status QUEtiapine Fumarate 25 MG 1 tablet at be dtime Orally Once a day for 90 days Active Citalopram Hydrobromide 20 MG 1 tablet Oral Once a day for 90 days Active Donepezil HCl 10 MG 1 tablet at bedtime Orally Once a day for 90 days Active Chlorthalidone 25 MG Oral for 90 Days Active Pravastatin Sodium 20 MG Oral for 90 Days Active Furosemide 20 MG Oral for 1 Days Active Plavix 75 MG 1 tablet Orally Once a day Active Vistaril 25 MG 1 capsule at bedtime as needed Orally Once a day Active amLODIPine Besylate 10 MG TAKE 1 TABLET BY MOUTH EVERY DAY Oral for 90 Days Active Metoprolol Tartrate 50 MG TAKE 1 TABLET BY MOUTH DAILY Oral for 90 Days Active Divalproex Sodium 125 MG 1 tablet Orally Twice a day 06/04/2024 Active Social History Tobacco Use: Social History Observation Description Date Details (start date - stop date) Never Smoker NA - NA Sex Assigned At : Social History Observation Description Sex Assigned At Female Tobacco Control (Standard) Question Answer Notes Tobacco use: Nonsmoker AUDIT-C (Standard) Question Answer Notes Did you have a drink containing alcohol in the p ast year? 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) 09/12/19 11 Active confirmed Vital Signs Heart Rate 60 /min 06/04/2024 Height-cm 152.4 cm 06/04/2024 Blood pressure diastolic 88 mm Hg 06/04/2024 Weight-kg 71.67 kg 06/04/2024 Height 60 in 06/04/2024 Blood pressure systolic 138 mm Hg 06/04/2024 Weight 158 lbs 06/04/2024 BMI 30.85 kg/m2 06/04/2024 Procedures Procedure Date Ordered Date Performed Result Body Sit e ADHD Testing 10/30/2023 N/A Encounters Encounter Location Date Provider Diagnosis [facility] [address] [place] [address] 10/14/2023 Emory [place] Major depression wit h psychotic features F32.3 and Mild cognitive impairment G31.84 [facility] [address] [place] [address] 10/30/2023 Emory [place] Mild cognitive impairment G31.84 [facility] [address] [place] [address] 11/11/2023 Emory [place] Major depression wit h psychotic features F32.3 and Mild cognitive impairment G31.84 [facility] [address] [place] [address] 02/10/2024 Emory [place] Major depression wit h psychotic features F32.3 ; Mild cognitive impairment G31.84 ; Alzheimer's disease, unspecified G30.9 and Primary insomnia F51.01 [facility] [address] [place] [address] 06/04/2024 Dayna Rahat Major depression wit h psychotic features F32.3 ; Mild cognitive impairment G31.84 ; Alzheimer's disease, unspecified G30.9 and Primary insomnia F51.01 [facility] [address] [place] [address] 10/14/2023 Em[facility] [place] [facility] [address] [place] [address] 10/17/2023 [facility], [facility] [address] [place] [address] 02/20/2024 [facility], [facility] [address] [place] [address] 05/22/2024 [facility] [address] [place] [address] 05/22/2024 Emory Coleman Assessments Encounter Date Diagnosis (ICD Code) Assessment Notes Treatment Notes Treatment Clinical Notes Section Notes 10/14/2023 Major depression with psychotic features (ICD-10 - F32.3) Visual Hallucinations - Assessment: The patient has been experiencing visual hallucinations of children almost daily for about a year, with one other episode since July. The hallucinations are not very disturbing to the patient and occur only at her apartment. - Plan: Continue monitoring the situation without making any changes to the current treatment plan. If the hallucinations become too disturbing, consider increasing the Quetiapine dosage to 25 mg. Memory Changes and Word-Finding Difficulties - Assessment: The patient has been experiencing memory changes for about a year and has difficulty finding words for a couple of years. She has been seeing a speech therapist for memory issues. - Plan: Recommend cognitive testing before the next appointment in four weeks to assess the extent of memory impairment and guide further management. Depression - Assessment: The patient reports not being consistently happy and wishes she was in her home like she used to be. She is currently on Citalopram 10 mg daily. - Plan: Continue Citalopram 10 mg daily and monitor the patient's mood during follow-up appointments. Adjust the treatment plan as needed based on the patient's response. Insomnia - Assessment: The patient is taking Trazodone 50 mg as needed for sleep. - Plan: Continue Trazodone 50 mg as needed and monitor the patient's sleep quality during follow-up appointments. Hypertension and History of Transient Ischemic Attack (TIA) - Assessment: The patient has a history of high blood pressure and a TIA in November 2022. She was admitted to [facility] at that time. - Plan: Ensure appropriate management of hypertension and monitor for any signs of recurrent TIA or cerebrovascular events during follow-up appointments. Assisted Living Adjustment - Assessment: The patient moved to assisted living in July and expresses a desire to be in her home like she used to be. - Plan: Encourage the patient to engage in social activities and support services available in the assisted living facility to help with the adjustment process. Monitor her overall well-being and satisfaction with the living situation during follow-up appointments. 10/14/2023 Mild cognitive impairment (ICD-10 - G31.84) Visual Hallucinations - Assessment: The patient has been experiencing visual hallucinations of children almost daily for about a year, with one other episode since July. The hallucinations are not very disturbing to the patient and occur only at her apartment. - Plan: Continue monitoring the situation without making any changes to the current treatment plan. If the hallucinations become too disturbing, consider increasing the Quetiapine dosage to 25 mg. Memory Changes and Word-Finding Difficulties - Assessment: The patient has been experiencing memory changes for about a year and has difficulty finding words for a couple of years. She has been seeing a speech therapist for memory issues. - Plan: Recommend cognitive testing before the next appointment in four weeks to assess the extent of memory impairment and guide further management. Depression - Assessment: The patient reports not being consistently happy and wishes she was in her home like she used to be. She is currently on Citalopram 10 mg daily. - Plan: Continue Citalopram 10 mg daily and monitor the patient's mood during follow-up appointments. Adjust the treatment plan as needed based on the patient's response. Insomnia - Assessment: The patient is taking Trazodone 50 mg as needed for sleep. - Plan: Continue Trazodone 50 mg as needed and monitor the patient's sleep quality during follow-up appointments. Hypertension and History of Transient Ischemic Attack (TIA) - Assessment: The patient has a history of high blood pressure and a TIA in November 2022. She was admitted to [facility] at that time. - Plan: Ensure appropriate management of hypertension and monitor for any signs of recurrent TIA or cerebrovascular events during follow-up appointments. Assisted Living Adjustment - Assessment: The patient moved to assisted living in July and expresses a desire to be in her home like she used to be. - Plan: Encourage the patient to engage in social activities and support services available in the assisted living facility to help with the adjustment process. Monitor her overall well-being and satisfaction with the living situation during follow-up appointments. 10/30/2023 Mild cognitive impairment (ICD-10 - G31.84) 11/11/2023 Major depression with psychotic features (ICD-10 - F32.3) Visual Hallucinations - Assessment: Patient reports improvement in visual hallucinations since the last visit. Patient confirms she is no longer seeing or talking to the little kids . - Plan: Continue quetiapine 25 mg once daily. Monitor for any changes in symptoms. Anxiety - Assessment: Patient reports increased anxiety at their living facility, but mood has improved recently. - Plan: Continue citalopram as prescribed by Dr. Barajas. Patient has an appointment with Dr. Barajas on . Monitor for any changes in symptoms. Possible Dementia - Assessment: Memory test on October 29 was inconclusive, leaning towards dementia. Patient was unable to complete the test. - Plan: Discuss with the patient and family about further testing (paper-pencil tests, MRI, or spinal tap) or starting medication (Aricept or Namenda) to slow the progression of dementia. The patient is open to medication and does not seem bothered by the current medications. Assisted living facility can conduct some testing. Medication Management - Plan: Continue current medications (quetiapine 25 mg once daily, citalopram as prescribed by Dr. Barajas). Send a note to Dr. Barajas regarding the patient's progress and medication plan. Coordinate with [facility] pharmacy for medication dispensing. Follow-up - Plan: Schedule a follow-up appointment in three months, or sooner if any issues arise. 02/10/2024 Major depression with psychotic features (ICD-10 - F32.3) Cognitive Decline and Memory Issues - Plan: - Increase donepezil dose to 10 mg to slow the progression of cognitive decline. - Consider adding memantine in the future if needed. - Encourage the patient to stay active and engage in social activities to maintain cognitive function. - Explained to the patient that the medication will help slow the progression of memory decline. Visual Hallucinations - Plan: - Continue quetiapine 25 mg for visual hallucinations management. Depression and Anxiety - Plan: - Continue citalopram at the current dose for depression and anxiety management. Sleep Issues - Plan: - Continue trazodone at the current dose for sleep management. Hearing Issues - Plan: - Refer the patient to primary care or an ENT specialist for evaluation of ear wax and hearing issues. - Recommend a hearing test to determine if wax removal or hearing aids are needed. - Suggested options for hearing tests include ENT, [employer], or [employer]. Physical Activity - Plan: - Encourage the patient to continue walking and participating in exercise classes to maintain physical and cognitive health. - Emphasized the importance of staying active and engaging in social activities for brain health. Medication Management - Plan: - All prescriptions will be sent to [facility] for medication management. 06/04/2024 Major depression with psychotic features (ICD-10 - F32.3) 06/04/2024 Mild cognitive impairment (ICD-10 - G31.84) 02/10/2024 Mild cognitive impairment (ICD-10 - G31.84) Cognitive Decline and Memory Issues - Plan: - Increase donepezil dose to 10 mg to slow the progression of cognitive decline. - Consider adding memantine in the future if needed. - Encourage the patient to stay active and engage in social activities to maintain cognitive function. - Explained to the patient that the medication will help slow the progression of memory decline. Visual Hallucinations - Plan: - Continue quetiapine 25 mg for visual hallucinations management. Depression and Anxiety - Plan: - Continue citalopram at the current dose for depression and anxiety management. Sleep Issues - Plan: - Continue trazodone at the current dose for sleep management. Hearing Issues - Plan: - Refer the patient to primary care or an ENT specialist for evaluation of ear wax and hearing issues. - Recommend a hearing test to determine if wax removal or hearing aids are needed. - Suggested options for hearing tests include ENT, [employer], or [employer]. Physical Activity - Plan: - Encourage the patient to continue walking and participating in exercise classes to maintain physical and cognitive health. - Emphasized the importance of staying active and engaging in social activities for brain health. Medication Management - Plan: - All prescriptions will be sent to [facility] for medication management. 11/11/2023 Mild cognitive impairment (ICD-10 - G31.84) Visual Hallucinations - Assessment: Patient reports improvement in visual hallucinations since the last visit. Patient confirms she is no longer seeing or talking to the little kids . - Plan: Continue quetiapine 25 mg once daily. Monitor for any changes in symptoms. Anxiety - Assessment: Patient reports increased anxiety at their living facility, but mood has improved recently. - Plan: Continue citalopram as prescribed by Dr. Barajas. Patient has an appointment with Dr. Barajas on . Monitor for any changes in symptoms. Possible Dementia - Assessment: Memory test on October 29 was inconclusive, leaning towards dementia. Patient was unable to complete the test. - Plan: Discuss with the patient and family about further testing (paper-pencil tests, MRI, or spinal tap) or starting medication (Aricept or Namenda) to slow the progression of dementia. The patient is open to medication and does not seem bothered by the current medications. Assisted living facility can conduct some testing. Medication Management - Plan: Continue current medications (quetiapine 25 mg once daily, citalopram as prescribed by Dr. Barajas). Send a note to Dr. Barajas regarding the patient's progress and medication plan. Coordinate with [facility] pharmacy for medication dispensing. Follow-up - Plan: Schedule a follow-up appointment in three months, or sooner if any issues arise. 02/10/2024 Alzheimer's disease, unspecified (ICD-10 - G30.9) Cognitive Decline and Memory Issues - Plan: - Increase donepezil dose to 10 mg to slow the progression of cognitive decline. - Consider adding memantine in the future if needed. - Encourage the patient to stay active and engage in social activities to maintain cognitive function. - Explained to the patient that the medication will help slow the progression of memory decline. Visual Hallucinations - Plan: - Continue quetiapine 25 mg for visual hallucinations management. Depression and Anxiety - Plan: - Continue citalopram at the current dose for depression and anxiety management. Sleep Issues - Plan: - Continue trazodone at the current dose for sleep management. Hearing Issues - Plan: - Refer the patient to primary care or an ENT specialist for evaluation of ear wax and hearing issues. - Recommend a hearing test to determine if wax removal or hearing aids are needed. - Suggested options for hearing tests include ENT, [employer], or [employer]. Physical Activity - Plan: - Encourage the patient to continue walking and participating in exercise classes to maintain physical and cognitive health. - Emphasized the importance of staying active and engaging in social activities for brain health. Medication Management - Plan: - All prescriptions will be sent to [facility] for medication management. 06/04/2024 Alzheimer's disease, unspecified (ICD-10 - G30.9) 06/04/2024 Primary insomnia (ICD-10 - F51.01) 02/10/2024 Primary insomnia (ICD-10 - F51.01) Cognitive Decline and Memory Issues - Plan: - Increase donepezil dose to 10 mg to slow the progression of cognitive decline. - Consider adding memantine in the future if needed. - Encourage the patient to stay active and engage in social activities to maintain cognitive function. - Explained to the patient that the medication will help slow the progression of memory decline. Visual Hallucinations - Plan: - Continue quetiapine 25 mg for visual hallucinations management. Depression and Anxiety - Plan: - Continue citalopram at the current dose for depression and anxiety management. Sleep Issues - Plan: - Continue trazodone at the current dose for sleep management. Hearing Issues - Plan: - Refer the patient to primary care or an ENT specialist for evaluation of ear wax and hearing issues. - Recommend a hearing test to determine if wax removal or hearing aids are needed. - Suggested options for hearing tests include ENT, [employer], or [employer]. Physical Activity - Plan: - Encourage the patient to continue walking and participating in exercise classes to maintain physical and cognitive health. - Emphasized the importance of staying active and engaging in social activities for brain health. Medication Management - Plan: - All prescriptions will be sent to [facility] for medication management. 10/14/2023 Other Learning About Depression Screening material was printed Visual Hallucinations - Assessment: The patient has been experiencing visual hallucinations of children almost daily for about a year, with one other episode since July. The hallucinations are not very disturbing to the patient and occur only at her apartment. - Plan: Continue monitoring the situation without making any changes to the current treatment plan. If the hallucinations become too disturbing, consider increasing the Quetiapine dosage to 25 mg. Memory Changes and Word-Finding Difficulties - Assessment: The patient has been experiencing memory changes for about a year and has difficulty finding words for a couple of years. She has been seeing a speech therapist for memory issues. - Plan: Recommend cognitive testing before the next appointment in four weeks to assess the extent of memory impairment and guide further management. Depression - Assessment: The patient reports not being consistently happy and wishes she was in her home like she used to be. She is currently on Citalopram 10 mg daily. - Plan: Continue Citalopram 10 mg daily and monitor the patient's mood during follow-up appointments. Adjust the treatment plan as needed based on the patient's response. Insomnia - Assessment: The patient is taking Trazodone 50 mg as needed for sleep. - Plan: Continue Trazodone 50 mg as needed and monitor the patient's sleep quality during follow-up appointments. Hypertension and History of Transient Ischemic Attack (TIA) - Assessment: The patient has a history of high blood pressure and a TIA in November 2022. She was admitted to [facility] at that time. - Plan: Ensure appropriate management of hypertension and monitor for any signs of recurrent TIA or cerebrovascular events during follow-up appointments. Assisted Living Adjustment - Assessment: The patient moved to assisted living in July and expresses a desire to be in her home like she used to be. - Plan: Encourage the patient to engage in social activities and support services available in the assisted living facility to help with the adjustment process. Monitor her overall well-being and satisfaction with the living situation during follow-up appointments. 06/04/2024 Other Stop Trazodone due to lethargy Continue quetiapine 25mg qHS for psychosis, agitation Increase citalopram to 20mg daily for irritability Continue donepezil 10mg daily for memory Patient educated on all medications including potential benefits, side effects, risks. Educated on proper dosing schedule and importance of compliance. Encouraged participation in daily activities, exercises. -Assessment and treatment plan reviewed with patient. -Compliance with treatment plan importance discussed. -Discussed the risks/benefits of this medication -Discussed medication side effects. -Contact office if symptoms worsen. -Discussed that it can take up to 6-8 weeks to see full therapeutic effects of psychotropic medications. -Crisis prevention hotline 468. Plan Of Treatment Pending Test Test Name Order Date ADHD Testing 10/30/2023 Next Appt Details Provider Name:Dayna Giang, 08/27/2024 01:30:00 PM, [address], [facility] [address], [place], [address], Insurance Providers Payer Name Payer Address Payer Phone Subscriber Number Group Number Insured Name Patient Relationship to Insured Coverage Start Date Coverage End Date [employer] Medicare Replacement/ Advantage - [employer]mo [address] [place] [address] [id number] Self - patient is the insured Medical (General) History Medical History History ICD Code Past Psychiatric History: Psychotic Epis ode abdominal aortic aneurysm: No atrial fibrillation: No chronic fatigue syndrome: No essential tremor: No hyperlipidemia: No hypertension: Yes Parkinson's disease: No restless leg syndrome: No stroke: Yes subdural hematoma: No type 1 diabetes mellitus: No type 2 diabetes mellitus: No vitamin B12 deficiency: No vitamin D deficiency: No Hospitalization History Reason Date(Month/Year) Hallucination, admitted to [facility], also had UTI 07/2023
--- OUTSIDE RECORDS SUMMARY | 2024-06-19 07:54 | XMS_ITS ---
Author Organization [facility] As [facility] Address [address] [place] [address] Care Team Providers Care Bander And Cellophaner Helper Machine Name Role Phone Davian Mehta DO Primary Care Provider Dayna Lantigua Unavailable [phone] Allergies Allergen (clinical drug ingredient) Drug/Non Drug Allergy documented on EMR Reaction Allergy Type Onset Date Status oxycodone Oxycodone Unknown Drug Allergy Active REASON FOR VISIT bhumi pt Medications Medication SIG (Take, Route, Frequency, Duration) Notes Start Date End Date Status Donepezil HCl 10 MG 1 tablet at bedtime Orally Once a day for 90 days Active Plavix 75 MG 1 tablet Orally Once a day Active Vistaril 25 MG 1 capsule at bedtime as needed Orally Once a day Active Metoprolol Tartrate 50 MG TAKE 1 TABLET BY MOUTH DAILY Oral for 90 Days Active Divalproex Sodium 125 MG 1 tablet Orally Twice a day 06/04/2024 Active QUEtiapine Fumarate 25 MG 1 tablet at be dtime Orally Once a day for 90 days Active Citalopram Hydrobromide 20 MG 1 tablet Oral Once a day for 90 days Active Chlorthalidone 25 MG Oral for 90 Days Active Furosemide 20 MG Oral for 1 Days Active Pravastatin Sodium 20 MG Oral for 90 Days Active amLODIPine Besylate 10 MG TAKE 1 TABLET BY MOUTH EVERY DAY Oral for 90 Days Active Social History Sex Assigned At : Social History Observation Description Sex Assigned At Female Vital Signs Blood pressure systolic 138 mm Hg 06/04/19 25 Blood pressure diastolic 88 mm Hg 025 Heart Rate 60 /min 06/04/2024 Height 60 in 06/04/2024 Weight 158 lbs 06/04/2024 BMI 30.85 kg/m2 06/04/2024 Height-cm 152.4 cm 06/04/2024 Weight-kg 71.67 kg 06/04/2024 Encounters Encounter Location Date Provider Diagnosis [facility] [address] [place] [address] 06/04/2024 Dayna Giang 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 -Crisis prevention hotline 988. Plan Of Treatment Medication Medication Name Sig Start Date Stop Date Notes Donepezil HCl 10 MG 1 tablet at bedtime Orally Once a day for 90 days QUEtiapine Fumarate 25 MG 1 tablet at be dtime Orally Once a day for 90 days Citalopram Hydrobromide 20 MG 1 tablet O ral Once a day for 90 days traZODone HCl 50 MG 1 tablet at bedtime Oral Once a day for 90 days Treatment Notes Assessment Notes Other Stop Trazodone due to lethargy Continue quetiapine 25mg qHS for psychosis, agitation Increase citalopram to 20mg daily for irritability Continue donepezil 10mg daily for memory Patient educated on all medications including potential benefits, side effects, risks. Educated on proper dosing schedule and importance of compliance. Encouraged participation in daily activities, exercises. Next Appt Details Follow Up: 3 Months, Reason: med f/u Provider Name:Dayna Giang, 08/27/2024 01:30:00 PM, [address] [facility], [facility] [address], [place], [address], Progress Notes * Tali LAND MDOB:[birth year] (88 yo F)Acc No.[id number]:06/04/2024 Patient: Tali EASLEY Provider: KRISTA DONAHUE :1935 A ge:88 Y S ex:Female Date:06/04/2024 Address:[address] [place], [place] [id number] Pcp:Davian Mehta DO Subjective: * Chief Complaints: * N igam pt * HPI: H istory of Presenting Problem: Mood lability n o hx corie. Psychosis h x VH, denies current . Suicidal ideation d enies. Memory S hort term memory impaired [facility] 10/2023 . Here for follow up, previously was seeing Dr Coleman for cognitive impairment/dementia, MDD, MANISH, visual hallusinations (likely related to dementia). Daughter present with her today. Daughter is concerned regarding daytime letheragy that started about 4-6 weeks ago. She is isolating and not participating in exercises due to the letheragy. Continue to exhibit behavioral concerns and irritability that are consistant with dementia diagnosis. No significant memory change, struggles with recent memory recall. Denies current psychosis. Sleep is good, about 8 hours nightly. Appetite is good. P ast Psychiatric Hospitalizations: Social hx: Has 5 children. Resides at [facility]. Medical hx: Mild stroke, HTN. Past psychiatric hx- Past IP admissions/IOP/PHP: [facility] in 2023 for one week Previous suicide attempts: none Substance use hx: denies Nicotine: none Alcohol: none. F unctional Status: Documentation of advanced stage dementia and caregiver knowledge is limited. Outcome Assessment F indings: N ot documented, patient is severely impaired and caregiver knowledge is limited * ROS: P sychiatric: Patient denies d epressed mood, difficulty sleeping, loss of appetite, suicidal thoughts, corie, psychosis. P atient complains of a nxiety, irritability, forgetfullness . Fran oliveira [facility] for details. * Medical History: * Medications: T akingDivalproex Sodium 125 MG Tablet Delayed Release 1 tablet Orally Twice a day Vistaril 25 MG Capsule 1 capsule at bedtime as needed Orally Once a day Plavix 75 MG Tablet 1 tablet Orally Once a day Metoprolol Tartrate 50 MG Tablet TAKE 1 TABLET BY MOUTH DAILY Oral amLODIPine Besylate 10 MG Tablet TAKE 1 TABLET BY MOUTH EVERY DAY Oral Pravastatin Sodium 20 MG Tablet Oral Chlorthalidone 25 MG Tablet Oral Furosemide 20 MG Tablet Oral QUEtiapine Fumarate 25 MG Tablet 1 tablet at bedtime Orally Once a day Citalopram Hydrobromide 10 MG Tablet 1 tablet Oral Once a day traZODone HCl 50 MG Tablet 1 tablet at bedtime Oral Once a day Donepezil HCl 10 MG Tablet 1 tablet at bedtime Orally Once a day Medication List reviewed and reconciled with the patientTaking Divalproex Sodium 125 MG Tablet Delayed Release 1 tablet Orally Twice a day Taking Vistaril 25 MG Capsule 1 capsule at bedtime as needed Orally Once a day Taking Plavix 75 MG Tablet 1 tablet Orally Once a day Taking Metoprolol Tartrate 50 MG Tablet TAKE 1 TABLET BY MOUTH DAILY Oral Taking amLODIPine Besylate 10 MG Tablet TAKE 1 TABLET BY MOUTH EVERY DAY Oral Taking Pravastatin Sodium 20 MG Tablet Oral Taking Chlorthalidone 25 MG Tablet Oral Taking Furosemide 20 MG Tablet Oral Taking QUEtiapine Fumarate 25 MG Tablet 1 tablet at bedtime Orally Once a day Taking Citalopram Hydrobromide 10 MG Tablet 1 tablet Oral Once a day Taking traZODone HCl 50 MG Tablet 1 tablet at bedtime Oral Once a day Taking Donepezil HCl 10 MG Tablet 1 tablet at bedtime Orally Once a day Medication List reviewed and reconciled with the patient * Allergies: Oswaldo gomez[Allergies Verified] Objective: * Vitals: B P:138/88mm Hg, HR:60/min, Wt:158lbs, Wt-k.67 kg, Ht: 60 in, Ht-cm: 152.4 cm, BMI:30.85Index, Body Surface Area: 1.74. * Examination: P sychiatry: Appearance: w ell-groomed. Abnormal body movements: n one. Affect / mood: a ppropriate. Attitude: c ooperative. Homicidal ideation: n one. Suicidal ideation: n one. Memory status: n ot able to describe childhood events. Degree of awareness of surroundings: w ithin normal limits.? Delusions: n o. Hallucinations: n o. Insight: , poor. Comprehension - Intellectual function: b elow average. Judgement: p oor. Orientation: n ot to time. Perceptual disorders: n o perceptual disorder noted. Psychomotor activity: w alks with cane. Speech / language: n ormal rate, volume, and articulation (RVR), clear and coherent. Thought content: a ppropriate. Thought process: l oss of associations. ? Assessment: * Assessment: 1. M ajor depression with psychotic features - F32.3 (Primary) 2 . M ild cognitive impairment - G31.84 3 . A lzheimer's disease, unspecified - G30.9 ? R isk :Low 4 . P rimary insomnia - F51.01 Plan: * Treatment: 2. P rimary insomnia Stop traZODone HCl Tablet, 50 MG, 1 tablet at bedtime, Oral, Once a day, 90 days, 90 Tablet. ? 3. O thers Notes: Stop Trazodone due to lethargy Continue quetiapine 25mg qHS for psychosis, agitation Increase citalopram to 20mg daily for irritability Continue donepezil 10mg daily for memory Patient educated on all medications including potential benefits, side effects, risks. Educated on proper dosing schedule and importance of compliance. Encouraged participation in daily activities, exercises. Clinical Notes: -Assessment and treatment plan reviewed with patient. -Compliance with treatment plan importance discussed. -Discussed the risks/benefits of this medication -Discussed medication side effects. -Contact office if symptoms worsen. -Discussed that it can take up to 6-8 weeks to see full therapeutic effects of psychotropic medications. -Crisis prevention hotline 098. * Procedure Codes: G 8783 NORMAL BP READING DOC F/U NOT [id number] MOST RECENT SYSTOLIC BP < 140MM [id number] MOST RECENT DIASTOLIC BP < 90MM [id number] VISIT COMPLEXITY INHERENT TO ONGOING CARE RELATED TO A PATIENT'S SINGLE, SERIOUS CONDITION OR A COMPLEX CONDITION * Follow Up: 3 Months (Reason: med f/u) * Billing Information: * Visit Code: 81841 OFFICE OUTPATIENT VISIT 25 MINUTES DETAILED HISTORY AND EXAM/MODERATE MEDICAL DECISION MAKING. * Procedure Codes: G8783 NORMAL BP READING DOC F/U NOT RQR. G8752 MOST RECENT SYSTOLIC BP < 140MM HG. G8754 MOST RECENT DIASTOLIC BP < 90MM HG. G2211 VISIT COMPLEXITY INHERENT TO ONGOING CARE RELATED TO A PATIENT'S SINGLE, SERIOUS CONDITION OR A COMPLEX CONDITION. * D TECHNICIAN Sign off status: Completed true * Provider: KRISTA DONAHUE Date: 06/04/2024 Generated for Manuel leon/Josh/Hernandez on: 06/19/2024 07:53 AM CDT History and Physical Notes * HPI (History of Present Illness) Category Sub-Category Detail Notes Category Not es History of Presenting Problem Suicidal ideation denies Here for follow up, previously was seeing Dr Coleman for cognitive impairment/dementia, MDD, MANISH, visual hallusinations (likely related to dementia). Daughter present with her today. Daughter is concerned regarding daytime letheragy that started about 4-6 weeks ago. She is isolating and not participating in exercises due to the letheragy. Continue to exhibit behavioral concerns and irritability that are consistant with dementia diagnosis. No significant memory change, struggles with recent memory recall. Denies current psychosis. Sleep is good, about 8 hours nightly. Appetite is good. Psychosis hx VH, denies curren t Mood lability no hx corie Memory Short term memory im paired [facility] 10/2023 Past Psychiatric Hospitalizations Social hx: Has 5 children. Resides at [facility]. Medical hx: Mild stroke, HTN. Past psychiatric hx- Past IP[facility] admissions/IOP/PHP: [facility] in 2023 for one week Previous suicide attempts: none Substance use hx: denies Nicotine: none Alcohol: none Functional Status Outcome Assessment Findings:: Not documented, patient is severely impaired and caregiver knowledge is limited Examination Category Sub-Category Detail Notes Category Not es Psychiatry Appearance: well-groomed Attitude: cooperative Psychomotor activity: walks with cane Abnormal body movements: none Degree of awareness of surroundings: wit hin normal limits Orientation: not to time Affect / mood: appropriate Speech / language: normal rate, volume, and articulation (RVR), clear and coherent Insight: , poor Judgement: poor Thought process: loss of associations Thought content: appropriate Perceptual disorders: no perceptual diso rder noted Suicidal ideation: none Homicidal ideation: none Memory status: not able to describe childhood events Delusions: no Hallucinations: no Comprehension - Intellectual function: b elow average
--- NOTE | 2024-06-19 08:51 | ED_ITS ---
HPI - Fall General Chief Complaint: Fall Stated Complaint: fall Time Seen by Provider: 06/19/24 07:19 Source: patient and EMS Mode of arrival: EMS Limitations: no limitations History of Present Illness HPI Narrative: 88-year-old with a history of hypertension, cardiomyopathy, CKD with brought in from assisted living facility with the complaints patient was on Coumadin laceration scalp hematoma patient upon arrival has noticed. No shortness of breath. Denies any neck pain. She was placed on C-collar. MD complaint: fall Onset (ago): unknown Place fall occurred: halfway/[facility]NF Loss of consciousness: none Location of injury: head Related Data Home Medications ?Medication ?Instructions ?Recorded ?Confirmed ?Last Taken ?Type hydroxyzine pamoate 25 mg capsule See Rx Instructions .Route 11/14/23 03/27/24 Unknown History .COMPLEX PRN Anxiety acetaminophen 325 mg tablet 650 mg PO Q4H PRN Pain 02/28/24 03/27/24 Unknown History amlodipine 10 mg tablet 10 mg PO DAILY 02/28/24 03/27/24 Unknown History chlorthalidone 25 mg tablet 25 mg PO DAILY 02/28/24 03/27/24 Unknown History magnesium hydroxide 30 ml PO DAILY PRN Constipation 02/28/24 03/27/24 Unknown History quetiapine 25 mg tablet 12.5 mg PO HS 02/28/24 03/27/24 Unknown History quetiapine 25 mg tablet 25 mg PO HS 02/28/24 03/27/24 Unknown History trazodone 50 mg tablet 50 mg PO HS PRN Insomnia 02/28/24 03/27/24 Unknown History citalopram 20 mg tablet 20 mg PO DAILY 06/05/24 Unknown History divalproex 125 mg tablet,delayed 125 mg PO BID 06/05/24 Unknown History release (Depakote) Allergies Allergy/AdvReac Type Severity Reaction Status Date / Time oxycodone (From Percocet) AdvReac Hallucinati Verified 03/27/24 09:57 ng Review of Systems Review of Systems: All systems reviewed & are unremarkable except as noted in HPI and below Constitutional: Constitutional: Reports no additional constitutional complaints Eyes: Eyes: Reports no additional eye complaints ENT: Reports system reviewed and no additional complaints, except as documented Cardiovascular: Cardiovascular: Reports no additional cardiovascular complaints Respiratory: Respiratory: Reports no additional respiratory complaints Gastrointestinal: Gastrointestinal: Reports no additional gastrointestinal complaints Musculoskeletal: Musculoskeletal: Reports no additional musculoskeletal complaints Neurologic: Reports system reviewed and no additional complaints, except as documented PMFSH Past Medical History Medical History Cardiomyopathy HTN (hypertension) CVA (cerebral vascular accident) Hyperlipidemia Chronic kidney disease, stage 3 (moderate) Surgical History Surgical History Hx of CABG x1 2009 Family History Family History Sibling Patient's sister is in good health Family history of malignant melanoma Mother Colon cancer Unknown Hypertension Social History Social History Social History: Caffeine-occasional coffee/soda Smoking status: Never smoker Alcohol intake: never Substance use: never Substance use type: does not use Do You Feel Safe in your Home?: Yes Lack of Transportation: No Lack of Food: Never True Current Housing: I Do Not Have Housing Concerned About Future Housing: No Difficulty Paying Gas/Electric Bills: No Difficulty Paying for Meds: No Currently Unemployed: No Education: High School Diploma/GED Difficulty w/ Childcare or Family Care: No Living arrangements: other Additional living arrangements comments: [facility] AT [facility] care concerns: No Exam Narrative: GENERAL: Well-appearing, well-nourished, and in no acute distress. HEAD: Normocephalic, atraumatic. Has a 4 cm laceration scalp with moderate bleeding EYES: PERRLA and EOMI. ENT: Nares clear, no rhinorrhea or epistaxis. Mucous membranes moist. NECK: Supple. CHEST: Clear to auscultation. No respiratory distress. HEART: Regular rate and rhythm. No murmur heard. Normal peripheral pulses. ABDOMEN: Soft, nontender, nondistended, normal active bowel sounds. EXTREMITIES: Normal range of motion. No edema. SKIN: Warm, dry, no rash. NEURO: No focal deficits. Alert and oriented x3. PSYCH: Normal mood and affect. Course Course Emergency Course: Notified patient and the family about her CT and lab work. Under laceration was stapled no further bleeding Vital Signs Vital signs: Vital Signs Pulse Rate 53 L 06/19/24 07:09 Respiratory Rate 13 06/19/24 07:09 Blood Pressure 136/66 06/19/24 07:09 Pulse Oximetry 96 06/19/24 07:09 Oxygen Delivery Room Air 06/19/24 07:09 Pulse Rate 53 L 06/19/24 07:09 Respiratory Rate 13 06/19/24 07:09 Blood Pressure 136/66 06/19/24 07:09 Pulse Oximetry 96 06/19/24 07:09 Oxygen Delivery Room Air 06/19/24 07:09 Procedures Laceration Laceration 1: Date: 06/19/24 Site: scalp Size (cm): 4 Description: linear Depth: simple, single layer ====== Skin Level ====== Skin layer closed with: maira (8) ====== Subcutaneous Layer ====== ====== Muscle Layer ====== ====== Tendon Layer ====== Discharge Plan Discharge Clinical Impression: Head injury Qualifiers: Encounter type: initial encounter Qualified Code(s): S09.90XA - Unspecified injury of head, initial encounter Laceration of scalp Qualifiers: Encounter type: initial encounter Qualified Code(s): S01.01XA - Laceration without foreign body of scalp, initial encounter CKD (chronic kidney disease) Qualifiers: Chronic kidney disease stage: unspecified stage Qualified Code(s): N18.9 - Chronic kidney disease, unspecified Patient Disposition: [place] [facility] Living Condition: Stable Instructions: Laceration (ED), Head Injury (ED) Additional Instructions: continue home medication, fall precautions. Patient Language: Bengali Prescriptions: No Action cephalexin 500 mg capsule 500 mg PO Q8H Qty: 30 0RF hydroxyzine pamoate 25 mg capsule See Rx Instructions .ROUTE .COMPLEX PRN (Reason: Anxiety) Rx Instructions: 25 mg PO Q 4 hours PRN, Anxiety tramadol 50 mg tablet 50 mg PO Q6H PRN (Reason: pain) Qty: 12 0RF quetiapine 25 mg tablet 12.5 mg PO HS quetiapine 25 mg tablet 25 mg PO HS acetaminophen 325 mg Tablet 650 mg PO Q4H PRN (Reason: Pain) trazodone 50 mg Tablet 50 mg PO HS PRN (Reason: Insomnia) chlorthalidone 25 mg tablet 25 mg PO DAILY magnesium hydroxide 400 mg/5 ml suspension 30 ml PO DAILY PRN (Reason: Constipation) amlodipine 10 mg tablet 10 mg PO DAILY Rx Instructions: TAKE 1 TABLET BY MOUTH EVERY DAY nitroglycerin [Nitrostat] 0.4 mg Tablet, Sublingual 0.4 mg sublingual Q5MIN PRN (Reason: Chest Pain) Qty: 21 0RF triamcinolone acetonide 0.1 % cream 1 applic TOPICAL BID Qty: 80 1RF clopidogrel 75 mg tablet 75 mg PO DAILY Qty: 90 1RF metoprolol tartrate 50 mg tablet 50 mg PO DAILY Qty: 90 1RF pravastatin 20 mg tablet 20 mg PO DAILY Qty: 90 1RF citalopram 20 mg tablet 20 mg PO DAILY divalproex [Depakote] 125 mg tablet,delayed release (DR/EC) 125 mg PO BID Follow-up/Referrals: Mari Acuña DO [Primary Care Provider] - Time of Disposition: 09:36
[2024-06-19 09:19] LABS: Basophils Percent Auto 0.3 % (0.2-1.2); Eosinophils Absolute Auto 0.1 K/mm3 (0-0.3); Eosinophils Percent Auto 0.7 % (0-4.4); Hematocrit 36.3 % (37.0-47.0); Hemoglobin 11.7 g/dL (12.0-15.0); Immature Granulocyte Absolute 0.06 K/mm3 (0.00-0.031); Immature Granulocyte Percent A 0.5 % (0-0.5); Lymphocytes Percent Auto 11.3 % (18.3-44.2); Mean Corpuscular HGB Conc 32.2 g/dl (32-36); Mean Corpuscular Hemoglobin 30.5 pg (26-34); Mean Corpuscular Volume 94.5 fl (80-100); Mean Platelet Volume 10.8 fl (7.4-10.4); Monocytes Percent Auto 7.8 % (2.6-8.5); Neutrophils Absolute Auto 9.9 K/mm3 (1.3-6.7); Neutrophils Percent Auto 79.4 % (45.5-73.1); Platelet Count Result 260 k/mm3 (150-375); Red Blood Count 3.84 M/mm3 (4.2-5.4); Red Cell Distribution Width 13.5 % (11.5-14.5); White Blood Count 12.4 K/mm3 (4.5-10.0)
[2024-06-19] MEDS: HYDROGEN PEROXIDE 3% SOLN(*SP) 473 ML BOTTLE (09:19)
[2024-06-19] MEDS: HYDROGEN PEROXIDE 3% SOLN(*SP) 473 ML BOTTLE 946 ML (09:19)
[2024-06-19 09:24] LABS: Anion Gap 9 mmol/L (4-12); Blood Urea Nitrogen 40 mg/dL (7-17); Calcium 9.4 mg/dL (8.4-10.2); Carbon Dioxide 31 mmol/L (22-30); Chloride 101 mmol/L (98-107); Estimated Glomerular Filt Rate 22; Glucose 150 mg/dL (65-110); Potassium 3.6 mmol/L (3.4-5.0); Sodium 141 mmol/L (137-145)
== END 2024-06-19 09:57 ==
PROVIDERS: Emergency Provider Family Medicine; PCP Family Medicine
DX: S00.03XA Contusion of scalp, initial encounter (principal); S09.90XA Unspecified injury of head, initial encounter; I12.9 Hypertensive chronic kidney disease with stage 1 through stage 4 chronic kidney disease, or unspecified chronic kidney disease; I42.9 Cardiomyopathy, unspecified; N18.30 Chronic kidney disease, stage 3 unspecified; E78.5 Hyperlipidemia, unspecified; Z95.1 Presence of aortocoronary bypass graft
CPT/HCPCS: 12002; 36415; 70450; 72125; 80048; 85025; 99284; A9270

== ENCOUNTER 2024-06-19 15:43 | Inpatient (IN) | payer OTHER, SELFPAY ==
[2024-06-19] VITALS (14 sets, daily range): BP systolic 105–142; BP diastolic 43–94; PULSE 51–77; RESP 15–20; TEMP 36.3–36.5; O2SAT 90–100; BMI 24.5
--- NOTE | 2024-06-19 15:54 | ECG_ITS ---
Test Date: 2024-06-19 15:54:37 Measurements Intervals [place] Rate: 55 P: 81 VA: 209 QRS: -21 QRSD: 150 T: 163 QT: 567 QTc: 544 Interpretive Statements SINUS BRADYCARDIA WITH FREQUENT VENTRICULAR PREMATURE COMPLEXES IN A BIGEMINAL PATTERN LEFT BUNDLE BRANCH BLOCK Electronically Signed On 06-21-2024 13:51:24 CDT by Constantin Hernandez D.O
--- OUTSIDE RECORDS SUMMARY | 2024-06-19 16:16 | XMS_ITS | Continuity of Care Document ---
Author Organization [facility] Address [address] [place] [address] Phone Care Team Providers Care Chief Order Dispatcher Name Role Phone Eleazar PT,MPT,ATC, Jr Unavailable Unavai lable Procedures Procedure Date Doc neg elder mal no plan PRES/ABSN URINE INCON ASSESS PT Evaluation Moderate Complexity Therapeutic Activities Therapeutic Exercise Therapeutic Exercise Therapeutic Exercise Therapeutic Exercise PT Evaluation Moderate Complexity Therapeutic Exercise Advance Directives Directive Yes / No Effective Date File Name No Information Encounters Encounter Description Practice Location Reason(s) For Visit Diagnoses Date Provider Providers Copied on Encounter [facility], [id number], tel:[phone] [place] No Information 4 Eleazar [place], [place]. [facility], [id number], tel:[phone] [place] No Information 4 Eleazar [place], [place]. Referring Provider: Davian Mehta, [address], [place], [address]. tel:[phone] [facility] [address] [address], [place], [place], [id number], tel:[phone] [place] Pain in left hipLow back painOth symptoms and signs involving the musculoskeletal systemOth symptoms and signs involving the dgstv sys and abdomenUnspecif ied abnormalities of gait and mobilityOther abnormalities of gait and mobilityAcquire d deformity of pelvis 8 Eleazar Swan , [place], [place]. [facility], [place], [place], [id number], tel:[phone] [place] Pain in left hipLow back painOth symptoms and signs involving the musculoskeletal systemOth symptoms and signs involving the dgstv sys and abdomenUnspecif ied abnormalities of gait and mobilityOther abnormalities of gait and mobilityAcquire d deformity of pelvis 8 Eleazar Swan [place], [place], [place]. [facility], [place], [place], [id number], tel:[phone] [place] Pain in left hipLow back painOth symptoms and signs involving the musculoskeletal systemOth symptoms and signs involving the dgstv sys and abdomenUnspecif ied abnormalities of gait and mobilityOther abnormalities of gait and mobilityAcquire d deformity of pelvis 8 Eleazar Sawn [place], [place]. [facility], [place], [place], [id number], tel:[phone] [place] Pain in left hipLow back painOth symptoms and signs involving the musculoskeletal systemOth symptoms and signs involving the dgstv sys and abdomenUnspecif ied abnormalities of gait and mobilityOther abnormalities of gait and mobilityAcquire d deformity of pelvis 8 Eleazar Swan [place], [place]. [facility], [place], [place], [id number], tel:[phone] [place] Pain in left hipLow back painOth symptoms and signs involving the musculoskeletal systemOth symptoms and signs involving the dgstv sys and abdomenUnspecif ied abnormalities of gait and mobilityOther abnormalities of gait and mobilityAcquire d deformity of pelvis 8 Sel[place] Urena. . Family History Family Member Type Diagnosis Age At Onset No Information Payers Payer name Insurance type Covered democrat ID Delaney juarez(s) [facility] Insurance [id number] Social History Type Description Quantity Date Captured Comments Sex Female Smoking Status No Information Chief Complaint And Reason For Visit No Information Reason For Referral Reason For Referral No Information History Of Present Illness Encounter Date Complaint History Of Prese nt Illness No Information Functional Status Date Functional Assessmen t No Information Instructions Date Instruction Additional Infor mation No Information Assessments Type Assessment Date No Information Patient Care Teams Name Effective Dates (start - stop) Status Members No Information
--- OUTSIDE RECORDS SUMMARY | 2024-06-19 16:16 | XMS_ITS | Continuity of Care Document ---
Author Organization [facility], later [facility] Address [address] [place] [address] [address] [place] [address] Phone Care Team Providers Care Collection Technician Name Role Phone Salvatore Bustos MD Unavailable Unavailable Procedures Procedure Date CATARACT SURG W/IOL, 1 STAGE CATARACT SURG W/IOL, 1 STAGE OFFICE/OUTPATIENT VISIT, [facility] Advance Directives Directive Yes / No Effective Date File Name No Information Encounters Encounter Description Practice Location Reason(s) For Visit Diagnoses Date Provider Providers Copied on Encounter Ophthalmology [facility], [address] [place] [address], [address] [place] [address], tel:[phone] [address] [place] [address] No Information 3 Juli Chase. [address] [place] [address], [facility] [address], [place], [address], [place]. tel:[phone] Referring Provider: Salvatore Blum, [address] [place] [address] [address], [place], [address]. tel:[phone] [facility]hthal[facility], [address] [place] [address], [id number], tel:[phone] [address] [place] [address] No Information 3 Juli Chase. [address] [place] [address], [address], [address], [place]. tel:[phone] Referring Provider: Salvatore Blum, [address] [place] [address] 201, [place], [address]. tel:[phone] OFFICE/OUTPA TIENT VISIT, [facility] Ophthalmology [facility], [address] [place] [address], [id number], tel:[phone] No Information 3 Juli Chase. [address] [facility], [address], [place], [address], . tel:[phone] Referring Provider: Salvatore Blum, [address] [facility] [address], [place], [place], [facility]. tel:[phone] Family History Family Member Type Diagnosis Age At Onset No Information Payers Payer name Insurance type Covered green party ID Authoriza tion(s) No Information Social History Type Description Quantity Date Captured Comments Sex Female Smoking Status No Information Chief Complaint And Reason For Visit No Information Plan Of Treatment Date Type Action Status No Information History Of Present Illness Encounter Date Complaint History Of Prese nt Illness No Information Instructions Date Instruction Additional Infor mation No Information Assessments Type Assessment Date No Information
--- OUTSIDE RECORDS SUMMARY | 2024-06-19 16:16 | XMS_ITS | Clinical Summary ---
Author Organization [facility] Address [address] [place] [address] Care Team Providers Care Key Punch Operator Name Role Phone Jarrod Eason MD Unavailable [phone] Davian Mehta DO Primary Care Provider [phone] [facility],non-owned Affiliates and Associated Physician Practices is amultiple site organization consisting of ambulatory clinics and hospital sitesin [place], [place], [place]. This disclosure is being madepursuant to the Care Everywhere program and may not contain all information available regarding this patient. Last updated 17.[facility] Allergies Active Allergy Reactions Criticality Noted [...] Type ESSENCE MEDICARE ESSENCE MEDICARE ADV HMO/POS [id number] Effective for all dates [address] [place] [address] Medicare- Managed Care SELF PAY NO INSURANCE SELF PAY NO INSURANCE Effective for all dates [place] Self Pay E[employer]ENCE MEDICARE ESSENCE MEDICARE ADV HMO/POS [id number] Effective for all dates [address] [place] [address] Medicare- Managed Care SELF PAY NO INSURANCE SELF PAY NO INSURANCE Effective for all dates [place] Self Pay [employer]ENCE MEDICARE ESSENCE MEDICARE ADV HMO/POS [id number] Effective for all dates [address] [place] [address] Medicare- Managed Care SELF PAY NO INSURANCE SELF PAY NO INSURANCE Effective for all dates [place] Self Pay E[employer]ENCE MEDICARE ESSENCE MEDICARE ADV HMO/POS [id number] Effective for all dates [address] [place] [address] Medicare- Managed Care SELF PAY NO INSURANCE SELF PAY NO INSURANCE Effective for all dates [place] Self Pay E[employer]ENCE MEDICARE ESSENCE MEDICARE ADV HMO/POS [id number] Effective for all dates [address] [place] [address] Medicare- Managed Care SELF PAY NO INSURANCE SELF PAY NO INSURANCE Effective for all dates [place] Self Pay E[employer]ENCE MEDICARE ESSENCE MEDICARE ADV HMO/POS [id number] Effective for all dates [address] [place] [address] Medicare- Managed Care SELF PAY NO INSURANCE SELF PAY NO INSURANCE Effective for all dates [place] Self Pay E[employer]ENCE MEDICARE ESSENCE MEDICARE ADV HMO/POS [id number] 04/08/2021-Prese nt ESSENCE CLAIMS [address] [place] [address] Medicare- Managed Care E[employer]ENCE MEDICARE ESSENCE MEDICARE ADV HMO/POS [id number] 04/08/2021-Prese nt ESSENCE CLAIMS [address] [place] [address] Medicare- Managed Care E[employer]ENCE MEDICARE ESSENCE MEDICARE ADV HMO/POS [id number] 04/08/2021-Prese nt ESSENCE CLAIMS [address] [place] [address] Medicare- Managed Care Care Teams Key Punch Operator Relationship Specialty Start Date End Date Davian Mehta DO [address] [place] [address] PCP - General 01/17/22 Jarrod Eason MD Internal Medicine 09/06/10
--- OUTSIDE RECORDS SUMMARY | 2024-06-19 16:16 | XMS_ITS | Clinical Summary ---
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
--- OUTSIDE RECORDS SUMMARY | 2024-06-19 16:16 | XMS_ITS | CONTINUITY OF CARE DOCUMENT ---
Author Name freddie frazier Address Unknown Organization [facility] Address [address] [place] [address] Phone [phone] Care Team Providers Care Salicylic Acid Blender Name Role Phone freddie frazier Unavailable Unavailable
--- OUTSIDE RECORDS SUMMARY | 2024-06-19 16:16 | XMS_ITS | Patient Health Summary ---
Author Organization [facility] Address [address] [place] [address] [place] [address] Care Team Providers Care Alcohol And Drug Counselor Name Role Phone Jarrod Eason MD Unavailable [phone] Davian Mehta DO Primary Care Provider [phone] Note from [facility],non-owned Affiliates and Associated Physician Practices is amultiple site organization consisting of ambulatory clinics and hospital sitesin [place], [place], [place] and [place]. This disclosure is being madepursuant to the Care Everywhere program and may not contain all information available regarding this patient. Last updated 17.[facility] Allergies * Oxycodone-Acetaminophen(Vision Changes) Medications * Be [...] is included. Case Report Dermatopathology Report Case: [id number] Authorizing Provider: Alia Frausto, Collected: 07/11/2022 12:00 AM JIMMY Ordering Location: [facility] DermPath Lab Received: 07/12/2022 11:08 AM Pathologist: [...] characteristic determined by the Dermatopathology Laboratory at [facility], directed by Dr. Malathi Pike. These tests need not be, and therefore are not, approved by the [place] Food and Drug Administration. The tests are used for clinical purposes. Billing Codes Specimen Charges Stain Charges 27294 92698 1 1 3 4:18 PM CDT DERMATOPATHOLOGY LABORATORY Embedded Images 3 4:18 PM CDT DERMATOPATHOLOGY LABORATORY Pathology/Cytology TISSUE SPECIMEN FROM SKIN / Unknown 07/11/2022 07/12/2022 11:08 AM CDT Miscellaneous samples (specimen) TISSUE SPECIMEN FROM SKIN / Unknown 07/11/2022 07/12/2022 11:08 AM CDT Alia Frausto PA-C LAB - PATHOL OGY/CYTOLOGY ORDERABLES DERMATOPATHOLOGY LABORATORY [facility] - Department of Dermatology [address] [phone] Care Teams Alcohol And Drug Counselor Relationship Specialty Start Date End Date Davian Mehta DO [address] [place] [address] PCP - General 01/17/22 Jarrod Eason MD Internal Medicine 09/06/10
--- OUTSIDE RECORDS SUMMARY | 2024-06-19 16:16 | XMS_ITS | Referral Summary ---
Author Organization [facility] Address [address] [place] [place] [address] Care Team Providers Care Indoor Landscaper/Gardener Name Role Phone Jarrod Eason MD Unavailable [phone] Davian Mehta DO Primary Care Provider [phone] Source Comments [facility],non-owned Affiliates and Associated Physician Practices is amultiple site organization consisting of ambulatory clinics and hospital sitesin [place], [place], [place] and [place]. This disclosure is being madepursuant to the Care Everywhere program and may not contain all information available regarding this patient. Last updated 17.[facility] Allergies Active Allergy Reactions Criticality Noted Date [...] Type ESSENCE MEDICARE ESSENCE MEDICARE ADV HMO/POS [id number] Effective for all dates [address] [place] [address] Medicare- Managed Care SELF PAY NO INSURANCE SELF PAY NO INSURANCE Effective for all dates [place] Self Pay ESSENCE MEDICARE ESSENCE MEDICARE ADV HMO/POS [id number] Effective for all dates [address] [place] [address] Medicare- Managed Care SELF PAY NO INSURANCE SELF PAY NO INSURANCE Effective for all dates [place] Self Pay ESSENCE MEDICARE ESSENCE MEDICARE ADV HMO/POS [id number] Effective for all dates [address] [place] [address] Medicare- Managed Care SELF PAY NO INSURANCE SELF PAY NO INSURANCE Effective for all dates [place] Self Pay E[employer]ENCE MEDICARE ESSENCE MEDICARE ADV HMO/POS [id number] Effective for all dates [address] [place] [address] Medicare- Managed Care SELF PAY NO INSURANCE SELF PAY NO INSURANCE Effective for all dates [place] Self Pay E[employer]ENCE MEDICARE ESSENCE MEDICARE ADV HMO/POS [id number] Effective for all dates [address] [place] [address] Medicare- Managed Care SELF PAY NO INSURANCE SELF PAY NO INSURANCE Effective for all dates [place] Self Pay E[employer]ENCE MEDICARE ESSENCE MEDICARE ADV HMO/POS [id number] Effective for all dates [address] [place] [address] Medicare- Managed Care SELF PAY NO INSURANCE SELF PAY NO INSURANCE Effective for all dates [place] Self Pay ESSENCE MEDICARE [facility] MEDICARE ADV HMO/POS [id number] 04/08/2021-Prese nt ESSENCE CLAIMS [address] [place] [address] Medicare- Managed Care E[employer]ENCE MEDICARE [facility] MEDICARE ADV HMO/POS [id number] 04/08/2021-Prese nt ESSENCE CLAIMS [address] [place] [address] Medicare- Managed Care ESSENCE MEDICARE [facility] MEDICARE ADV HMO/POS [id number] 04/08/2021-Prese nt ESSENCE CLAIMS [address] [place] [address] Medicare- Managed Care Care Teams Indoor Landscaper/Gardener Relationship Specialty Start Date End Date Davian Mehta DO [address] [place] [phone] PCP - General 01/17/22 Jarrod Eason MD Internal Medicine 09/06/10
--- OUTSIDE RECORDS SUMMARY | 2024-06-19 16:16 | XMS_ITS | Referral Summary ---
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
[2024-06-19 16:22] LABS: Basophils Percent Auto 0.2 % (0.2-1.2); Hematocrit 32.7 % (37.0-47.0); Hemoglobin 10.7 g/dL (12.0-15.0); Immature Granulocyte Absolute 0.05 K/mm3 (0.00-0.031); Immature Granulocyte Percent A 0.4 % (0-0.5); Lymphocytes Absolute Auto 1.07 K/mm3 (0.9-3.2); Lymphocytes Percent Auto 8.5 % (18.3-44.2); Mean Corpuscular HGB Conc 32.7 g/dl (32-36); Mean Corpuscular Hemoglobin 30.6 pg (26-34); Mean Corpuscular Volume 93.4 fl (80-100); Mean Platelet Volume 10.9 fl (7.4-10.4); Monocytes Absolute Auto 0.5 K/mm3 (0.1-0.6); Neutrophils Absolute Auto 10.9 K/mm3 (1.3-6.7); Neutrophils Percent Auto 86.9 % (45.5-73.1); Platelet Count Result 266 k/mm3 (150-375); Red Cell Distribution Width 13.4 % (11.5-14.5); White Blood Count 12.5 K/mm3 (4.5-10.0)
[2024-06-19] MEDS: AMIODARONE 150 MG/D5W 100 ML 150 MG/100 ML BAG 600 MG IV CONT ×2 (16:24→22:33)
[2024-06-19 16:31] LABS: Alanine Aminotransferase 21 U/L (6-35); Albumin Level 3.8 g/dL (3.5-5.1); Alkaline Phosphatase 81 U/L (38-126); Anion Gap 12 mmol/L (4-12); Aspartate Amino Transferase 24 U/L (14-36); Blood Urea Nitrogen 43 mg/dL (7-17); Calcium 9.4 mg/dL (8.4-10.2); Carbon Dioxide 28 mmol/L (22-30); Chloride 99 mmol/L (98-107); Estimated CRCL calculation 17 ml/min; Estimated Glomerular Filt Rate 22; Glucose 196 mg/dL (65-110); Potassium 4.1 mmol/L (3.4-5.0); Sodium 139 mmol/L (137-145)
[2024-06-19 16:33] LABS: INR 1.1; Prothrombin Time 14.7 Seconds (11.1-14.7)
--- NOTE | 2024-06-19 16:33 | ED_ITS ---
HPI - Altered Mental Status General Chief Complaint: Altered Mental Status Stated Complaint: ams Time Seen by Provider: 06/19/24 15:51 Source: patient and EMS Mode of arrival: EMS Limitations: no limitations History of Present Illness HPI narrative: 88-year-old with a history of cardiomyopathy, CVA, HTN was brought in from a intermediate l with the complaints of altered mental status. Patient was seen early this morning by me after a fall. Patient sustained a laceration on the head which was stable and was ready to be discharged home when she was stable as per EMS patient was being observed every 1 hour by the intermediate staff she was found to be altered , they called 911 ,upon EMS arrival pt had Non sustained V tach , was given a bolus amiodarone. Upon arrival patient has no chest pain or shortness of breath or headache. Related Data Home Medications ?Medication ?Instructions ?Recorded ?Confirmed ?Last Taken ?Type hydroxyzine pamoate 25 mg capsule See Rx Instructions .Route 11/14/23 03/27/24 Unknown History .COMPLEX PRN Anxiety acetaminophen 325 mg tablet 650 mg PO Q4H PRN Pain 02/28/24 03/27/24 Unknown History amlodipine 10 mg tablet 10 mg PO DAILY 02/28/24 03/27/24 Unknown History chlorthalidone 25 mg tablet 25 mg PO DAILY 02/28/24 03/27/24 Unknown History magnesium hydroxide 30 ml PO DAILY PRN Constipation 02/28/24 03/27/24 Unknown History quetiapine 25 mg tablet 12.5 mg PO HS 02/28/24 03/27/24 Unknown History quetiapine 25 mg tablet 25 mg PO HS 02/28/24 03/27/24 Unknown History trazodone 50 mg tablet 50 mg PO HS PRN Insomnia 02/28/24 03/27/24 Unknown History citalopram 20 mg tablet 20 mg PO DAILY 06/05/24 Unknown History divalproex 125 mg tablet,delayed 125 mg PO BID 06/05/24 Unknown History release (Depakote) Allergies Allergy/AdvReac Type Severity Reaction Status Date / Time oxycodone (From Percocet) AdvReac Hallucinati Verified 03/27/24 09:57 ng Review of Systems 2 Review of Systems: All systems reviewed & are unremarkable except as noted in HPI and below Constitutional: Constitutional: Reports no additional constitutional complaints Eyes: Eyes: Reports no additional eye complaints Cardiovascular: Cardiovascular: Reports no additional cardiovascular complaints Respiratory: Respiratory: Reports no additional respiratory complaints Genitourinary: Genitourinary: Reports no additional female genitourinary complaints Musculoskeletal: Musculoskeletal: Reports no additional musculoskeletal complaints [facility] Past Medical History Medical History Cardiomyopathy HTN (hypertension) CVA (cerebral vascular accident) Hyperlipidemia Chronic kidney disease, stage 3 (moderate) Surgical History Surgical History Hx of CABG x1 2009 Family History Family History Sibling Patient's sister is in good health Family history of malignant melanoma Mother Colon cancer Unknown Hypertension Social History Social History Social History: Caffeine-occasional coffee/soda Smoking status: Never smoker Alcohol intake: never Substance use: never Substance use type: does not use Do You Feel Safe in your Home?: Yes Lack of Transportation: No Lack of Food: Never True Current Housing: I Do Not Have Housing Concerned About Future Housing: No Difficulty Paying Gas/Electric Bills: No Difficulty Paying for Meds: No Currently Unemployed: No Education: High School Diploma/GED Difficulty w/ Childcare or Family Care: No Living arrangements: other Additional living arrangements comments: [facility]DEPENDENT LIVING AT [facility] concerns: No Exam 2 Narrative: GENERAL: Well-appearing, well-nourished, and in no acute distress. HEAD: Normocephalic, atraumatic. Scalp laceration with maira EYES: PERRLA and EOMI. ENT: Nares clear, no rhinorrhea or epistaxis. Mucous membranes moist. NECK: Supple. CHEST: Clear to auscultation. No respiratory distress. HEART: Regular rate and rhythm. No murmur heard. Normal peripheral pulses. ABDOMEN: Soft, nontender, nondistended, normal active bowel sounds. EXTREMITIES: Normal range of motion. No edema. SKIN: Warm, dry, no rash. NEURO: No focal deficits. Alert and oriented PSYCH: Normal mood and affect. Course Course Emergency Course: Patient had periods of for nonsustained V-tach. However amiodarone drip being started and home with being 50s. Discussed with Cardiology recommended to continue oral amiodarone drip will see in consult. Notified the hospitalist Vital Signs Vital signs: Vital Signs Temperature 36.3 C L 06/19/24 15:48 Pulse Rate 55 L 06/19/24 15:48 Respiratory Rate 19 06/19/24 15:48 Pulse Oximetry 98 06/19/24 15:48 Oxygen Delivery Room Air 06/19/24 15:48 Temperature 36.3 C L 06/19/24 15:48 Pulse Rate 67 06/19/24 16:24 Respiratory Rate 20 06/19/24 16:17 Blood Pressure 132/45 L 06/19/24 16:24 Pulse Oximetry 98 06/19/24 16:17 Oxygen Delivery Room Air 06/19/24 16:06 MDM - Altered Mental Status Differential Diagnosis Differential diagnosis: Likely altered mental status and other (Cardiac arrhythmia) Lab Data 06/19/24 16:14 06/19/24 16:14 Labs: Lab Results 06/19/24 Range/Units 16:14 WBC 12.5 H (4.5-10.0) K/mm3 RBC 3.50 L (4.2-5.4) M/mm3 Hgb 10.7 L (12.0-15.0) g/dL Hct 32.7 L (37.0-47.0) % MCV 93.4 (80-100) fl MCH 30.6 (26-34) pg MCHC 32.7 (32-36) g/dl RDW 13.4 (11.5-14.5) % Plt Count 266 (150-375) k/mm3 MPV 10.9 H (7.4-10.4) fl Immature Gran % (Auto) 0.4 (0-0.5) % Neut % (Auto) 86.9 H (45.5-73.1) % Lymph % (Auto) 8.5 L (18.3-44.2) % [place] % (Auto) 4.0 (2.6-8.5) % Eos % (Auto) 0.0 (0-4.4) % Baso % (Auto) 0.2 (0.2-1.2) % Lymph # (Auto) 1.07 (0.9-3.2) K/mm3 [place] # (Auto) 0.5 (0.1-0.6) K/mm3 Eos # (Auto) 0.0 (0-0.3) K/mm3 Baso # (Auto) 0.0 (0.0-0.1) K/mm3 Abs Immat Gran (auto) 0.05 H (0.00-0.031) K/mm3 Absolute Neuts (auto) 10.9 H (1.3-6.7) K/mm3 Absolute Nucleated RBC 0.000 (0.0-0.012) K/mm3 Nucleated RBC % 0.0 (0.0-0.2) % PT Pending INR Pending APTT Pending Sodium 139 (137-145) mmol/L Potassium 4.1 (3.4-5.0) mmol/L Chloride 99 (98-107) mmol/L Carbon Dioxide 28 (22-30) mmol/L Anion Gap 12 (4-12) mmol/L BUN 43 H (7-17) mg/dL Creatinine 2.16 H (0.7-1.0) mg/dL Estim Creat Clear Calc 17 ml/min Estimated GFR 22 L (59 - ) Glucose 196 H (65-110) mg/dL Calcium 9.4 (8.4-10.2) mg/dL Total Bilirubin 1.0 (0.2-1.3) mg/dL AST 24 (14-36) U/L ALT 21 (6-35) U/L Alkaline Phosphatase 81 (38-126) U/L Total Protein 6.0 L (6.3-8.2) g/dL Albumin 3.8 (3.5-5.1) g/dL ECG Data EKG #1: ECG completion date: 06/19/24 ECG completion time: 15:54 EKG Interpretation: bradycardia (55), no ST changes and LBBB Discharge Plan Discharge Clinical Impression: Non-sustained ventricular tachycardia Patient Disposition: Still a Patient Condition: Stable Patient Language: [place] Prescriptions: No Action cephalexin 500 mg capsule 500 mg PO Q8H Qty: 30 0RF hydroxyzine pamoate 25 mg capsule See Rx Instructions .ROUTE .COMPLEX PRN (Reason: Anxiety) Rx Instructions: 25 mg PO Q 4 hours PRN, Anxiety tramadol 50 mg tablet 50 mg PO Q6H PRN (Reason: pain) Qty: 12 0RF quetiapine 25 mg tablet 12.5 mg PO HS quetiapine 25 mg tablet 25 mg PO HS acetaminophen 325 mg Tablet 650 mg PO Q4H PRN (Reason: Pain) trazodone 50 mg Tablet 50 mg PO HS PRN (Reason: Insomnia) chlorthalidone 25 mg tablet 25 mg PO DAILY magnesium hydroxide 400 mg/5 ml suspension 30 ml PO DAILY PRN (Reason: Constipation) amlodipine 10 mg tablet 10 mg PO DAILY Rx Instructions: TAKE 1 TABLET BY MOUTH EVERY DAY nitroglycerin [Nitrostat] 0.4 mg Tablet, Sublingual 0.4 mg sublingual Q5MIN PRN (Reason: Chest Pain) Qty: 21 0RF triamcinolone acetonide 0.1 % cream 1 applic TOPICAL BID Qty: 80 1RF clopidogrel 75 mg tablet 75 mg PO DAILY Qty: 90 1RF metoprolol tartrate 50 mg tablet 50 mg PO DAILY Qty: 90 1RF pravastatin 20 mg tablet 20 mg PO DAILY Qty: 90 1RF citalopram 20 mg tablet 20 mg PO DAILY divalproex [Depakote] 125 mg tablet,delayed release (DR/EC) 125 mg PO BID Follow-up/Referrals: Mari Acuña DO [Primary Care Provider] - Time of Disposition: 17:26
[2024-06-19 16:34] LABS: Partial Thromboplastin Time 27.9 Seconds (22.3-36.8)
[2024-06-19] MEDS: AMIODARONE 360 MG/D5W 200 ML 360 MG/200 ML BAG 33.33 MG IV CONT ×2 (16:37→23:25)
[2024-06-19 16:49] LABS: Magnesium 1.8 mg/dL (1.6-2.3)
[2024-06-19 18:27] LABS: Add Urine Microscopic? YES; Appearance Urine Clear (Clear); Bacteria Urine None Seen /hpf; Bilirubin Urine Negative (Negative); Blood Urine Negative (Negative); Color Urine Yellow (Yellow); Glucose Urine UA Negative (Negative); Ketones Urine Negative (Negative); Leukocyte Esterase Ur Negative LEU/UL (Negative); Nitrate Urine Negative (Negative); Non Pathogenic Casts 0-2; Protein Urine Trace mg/dL (Negative); RBC Urine 0-2 /hpf (0-2); Specific Grav Ur 1.009 (1.001-1.035); Squamous Epithelial Cell Urine None Seen /hpf (Few); Urobilinogen Urine 0.2 mg/dL (<2.0); WBC Urine 0-5 /hpf (0-3)
[2024-06-19 22:04] LABS: Troponin I 0.017 ng/mL (0.000-0.034)
[2024-06-19] MEDS: MAGNESIUM SULF 1 GM/D5W 100 ML 1 GM/100 ML BAG IVPB ×2 (22:38→23:25)
--- NOTE | 2024-06-19 22:53 | ECG_ITS ---
Test Date: 2024-06-19 23:26:01 Measurements Intervals [place] Rate: 62 P: 75 MO: 215 QRS: -14 QRSD: 160 T: 186 QT: 572 QTc: 585 Interpretive Statements SINUS RHYTHM WITH FREQUENT PVCS LEFT BUNDLE BRANCH BLOCK Electronically Signed On 06-21-2024 13:54:30 CDT by Constantin Hernandez D.O
--- NOTE | 2024-06-19 22:59 | ECG_ITS ---
Test Date: 2024-06-19 22:59:20 Measurements Intervals [place] Rate: 47 P: 70 [place]: 199 QRS: -7 QRSD: 161 T: 201 QT: 648 QTc: 577 Interpretive Statements SINUS BRADYCARDIA WITH FREQUENT VENTRICULAR PREMATURE COMPLEXES IN A BIGEMINAL PATTERN LEFT BUNDLE BRANCH BLOCK Compared to ECG 06/19/2024 15:54:37 NO SIGNIFICANT CHANGES Electronically Signed On 06-23-2024 16:23:42 CDT by Nat Glez M.D.
[2024-06-19 23:46] LABS: Alveolar/Arterial O2 Gradient 30.6 mmHg; Base Excess ABG 3.3 mEq/l (+/-2.0); Fractional Inspired Oxygen 21 %; Oxygen Content ABG 14.8 %vol (16.0-22.0); Oxygen Saturation ABG 96.8 % (95.0-100.0); Oxyhemoglobin 95.2 % THb (90.0-100.0); PO2 ABG 79.6 mmHg (80.0-100.0); PO2 FiO2 Ratio Arterial Blood 3.79 %
[2024-06-19 23:49] LABS: Modified Allen's Test Pass; Site Drawn RIGHT RADIAL; pH ABG 7.514 (7.350-7.450)
--- NOTE | 2024-06-19 23:56 | PM.IMHP ---
H&P: HPI History of Present Illness Date/Time: 06/19/24 23:56 Chief Complaint: Unresponsive Narrative: 88-year-old female with a past medical history of hypertrophic obstructive cardiomyopathy status post septal mild plasty, coronary artery disease, carotid stenosis and dementia who presented to the ER from [facility] due to an unresponsive episode. The patient had been evaluated earlier in the ER due to a fall. The patient has CT scan of the head at that time which demonstrated no acute intercranial process she was treated and sent back to [facility] where she resides. The staff was performing their hourly rounds with the found the patient unresponsive. When EMS arrived to the scene the patient was having several episodes of prolonged V-tach and received a dose of amiodarone in a full-dose aspirin. The patient did following treatment and was back to her baseline of alert orient times 2. The daughters report that the patient is usually a able to identify them in is oriented to self but she would not usually know the month date or year. In the ER patient was started on amiodarone drip in she was admitted to the IMU. After patient arrived to the IMU she was having numerous episodes of a V-tach lasting up to 30-40 beats intervals with intermittent burst of torsades interspersed with bigeminy with only 1-2 conduction on palpation of pulse. The patient's blood pressures remain stable despite rhythm changes. The patient reported that she just did not feel well but was unable to give me any other information. Her extremities were cold to touch in she had poor perfusion with mottling. Cardiology was contacted it was recommend the patient be transferred to the ICU for lidocaine infusion and that the patient be transferred to tertiary care. However, nursing staff contacted the patient's POA and the patient's daughter states that the patient would not want any aggressive interventions. She would not want a pacemaker or be transferred for evaluation by electrophysiology. They feel that the patient's quality of life has declined since her dementia has progressed. At this time they still want the patient transferred to the ICU for lidocaine infusion. The patient's daughter actually reports that the patient had had 2 witnessed syncopal episodes at the detention and were not simple falls. Source of information was obtained from review of past medical records, ER physician report and report from the patient's 2 daughters and [id number] at bedside. Review of Systems Review of Systems: ROS unobtainable: Yes unobtainable due to medical condition (dementia) and unobtainable due to mental status [facility], [facility] Past Medical History Medical History (Updated 06/20/24 @ 09:01 by Emily Mendosa DO) Carotid stenosis Lichenified eczema TIA (transient ischemic attack) Dementia Prediabetes Vitamin D deficiency Obstructive hypertrophic cardiomyopathy HTN (hypertension) CVA (cerebral vascular accident) Hyperlipidemia Chronic kidney disease, stage 3 (moderate) Surgical History Surgical History (Updated 06/20/24 @ 08:43 by Emily Mendosa DO) History of lumpectomy of right breast 07/2020 History of partial nephrectomy Partial left nephrectomy due to the renal cell carcinoma History of myomectomy Septal myomectomy 2005 Hx of CABG 2 vessel 2009 Family History Family History Sibling Patient's sister is in good health Family history of malignant melanoma Mother Colon cancer Unknown Hypertension Social History Social History (Updated 06/20/24 @ 08:45 by Emily Mendosa DO) Social History: The patient resides at [facility]. She raised 4 children. Code status: DNR/DNI Healthcare power of insurance defense attorney: Julianne Land (daughter) Smoking status: Never smoker Second hand tobacco smoke exposure: No Alcohol intake: never Substance use: never Substance use type: does not use Do You Feel Safe in your Home?: Yes Lack of Transportation: No Lack of Food: Never True Current Housing: I Do Not Have Housing Concerned About Future Housing: No Difficulty Paying Gas/Electric Bills: No Difficulty Paying for Meds: No Currently Unemployed: No Education: High School Diploma/GED Difficulty w/ Childcare or Family Care: No Living arrangements: other Additional living arrangements comments: [facility] AT [facility] Spiritual care concerns: No Meds Home Medications and Allergies Home Medications ?Medication ?Instructions ?Recorded ?Confirmed ?Type triamcinolone acetonide 0.1 % 1 applic topical BID #80 grams 09/25/22 03/27/24 Rx topical cream clopidogrel 75 mg tablet 75 mg PO DAILY #90 tabs 01/11/23 03/27/24 Rx metoprolol tartrate 50 mg tablet 50 mg PO DAILY #90 tabs 05/20/23 03/27/24 Rx pravastatin 20 mg tablet 20 mg PO DAILY #90 tabs 07/10/23 03/27/24 Rx tramadol 50 mg tablet 50 mg PO Q6H PRN pain #12 tabs 07/10/23 03/27/24 Rx hydroxyzine pamoate 25 mg capsule See Rx Instructions .Route 11/14/23 03/27/24 History .COMPLEX PRN Anxiety acetaminophen 325 mg tablet 650 mg PO Q4H PRN Pain 02/28/24 03/27/24 History amlodipine 10 mg tablet 10 mg PO DAILY 02/28/24 03/27/24 History chlorthalidone 25 mg tablet 25 mg PO DAILY 02/28/24 03/27/24 History magnesium hydroxide 30 ml PO DAILY PRN Constipation 02/28/24 03/27/24 History nitroglycerin 0.4 mg sublingual 0.4 mg sublingual Q5MIN PRN Chest 02/28/24 03/27/24 Rx tablet (Nitrostat) Pain #21 tabs quetiapine 25 mg tablet 12.5 mg PO HS 02/28/24 03/27/24 History quetiapine 25 mg tablet 25 mg PO HS 02/28/24 03/27/24 History trazodone 50 mg tablet 50 mg PO HS PRN Insomnia 02/28/24 03/27/24 History cephalexin 500 mg capsule 500 mg PO Q8H #30 caps 03/27/24 03/27/24 Rx citalopram 20 mg tablet 20 mg PO DAILY 06/05/24 History divalproex 125 mg tablet,delayed 125 mg PO BID 06/05/24 History release (Depakote) Allergies Allergy/AdvReac Type Severity Reaction Status Date / Time oxycodone (From Percocet) AdvReac Hallucinati Verified 03/27/24 09:57 ng Vital Signs Vital Signs - 24 hr 06/19/24 15:48 06/19/24 16:06 06/19/24 16:17 Temperature 97.4 F L Pulse Rate 55 L 53 L Respiratory Rate 19 20 Blood Pressure 132/45 L Pulse Oximetry 98 100 98 Oxygen Delivery Room Air Room Air 06/19/24 16:24 06/19/24 16:29 06/19/24 16:37 Temperature Pulse Rate 67 51 L 51 L Respiratory Rate Blood Pressure 132/45 L 121/43 L 121/43 L Pulse Oximetry Oxygen Delivery 06/19/24 16:51 06/19/24 18:04 06/19/24 19:14 Temperature Pulse Rate 52 L 56 L 57 L Respiratory Rate 19 15 16 Blood Pressure 125/45 L 139/72 105/80 Pulse Oximetry 98 97 100 Oxygen Delivery 06/19/24 20:28 06/19/24 22:33 06/19/24 22:45 Temperature 97.7 F Pulse Rate 77 60 68 Respiratory Rate 16 Blood Pressure 142/94 H Pulse Oximetry 90 Oxygen Delivery 06/19/24 23:25 06/19/24 23:35 Temperature Pulse Rate 60 6 L Respiratory Rate Blood Pressure 115/44 L Pulse Oximetry Oxygen Delivery Exam Narrative: Weight 65 kg BMI 24.6 Const: Other: Acutely ill-appearing, otherwise well-developed well-nourished, elderly, frail HENMT: Other: Patient has scalp lack of left scalp, mucous membranes are dry, no oral pharyngeal erythema Eyes: Other: evidence of bilateral lens replacements, left eye might be slightly larger than right but equally reactive, positive conjunctival pallor, no scleral icterus Neck: Other: No JVD, trachea midline Resp: Other: Clear to auscultation bilaterally, no increased work of breathing Cardio: Other: Profound bradycardia, 2/6 systolic murmur but heart sounds were difficult to auscultate GI: Other: Soft, nontender, nondistended, positive bowel sounds : Other: Pure wick catheter in place Skin: Other: Skin is cool to touch in mottled, 4-5 second cap refill Neuro: Other: The the patient is alert oriented to person, she is confused as to date time location and why she is in the hospital. She was able to recognize her family. Extrem: Other: No clubbing, Psych: Other: Confused, follow simple commands, flat affect H&P: Results Labs Labs: Short CBC 06/19/24 Range/Units 16:14 WBC 12.5 H (4.5-10.0) K/mm3 Hgb 10.7 L (12.0-15.0) g/dL Hct 32.7 L (37.0-47.0) % Plt Count 266 (150-375) k/mm3 BMP 06/19/24 16:14 Sodium 139 Potassium 4.1 Chloride 99 Carbon Dioxide 28 BUN 43 H Creatinine 2.16 H Glucose 196 H Calcium 9.4 Cardiac Enzymes 06/19/24 Range/Units 21:35 Troponin I 0.017 (0.000-0.034) ng/mL Liver Function 06/19/24 Range/Units 16:14 Total Bilirubin 1.0 (0.2-1.3) mg/dL AST 24 (14-36) U/L ALT 21 (6-35) U/L Alkaline Phosphatase 81 (38-126) U/L Albumin 3.8 (3.5-5.1) g/dL Urine 06/19/24 Range/Units 18:14 Urine Color Yellow (Yellow) Urine Appearance Clear (Clear) Urine pH 5.0 (5.0-9.0) Ur Specific [place] 1.009 (1.001-1.035) Urine Protein Trace (Negative) mg/dL Urine Glucose (UA) Negative (Negative) mg/dL Laboratory Tests 06/20/24 04:48 06/20/24 04:47 06/19/24 06/19/24 06/19/24 16:14 18:14 21:35 WBC 12.5 H RBC 3.50 L Hgb 10.7 L Hct 32.7 L MCV 93.4 MCH 30.6 MCHC 32.7 RDW 13.4 Plt Count 266 MPV 10.9 H Immature Gran % (Auto) 0.4 Neut % (Auto) 86.9 H Lymph % (Auto) 8.5 L [place] % (Auto) 4.0 Eos % (Auto) 0.0 Baso % (Auto) 0.2 Lymph # (Auto) 1.07 [place] # (Auto) 0.5 Eos # (Auto) 0.0 Baso # (Auto) 0.0 Abs Immat Gran (auto) 0.05 H Absolute Neuts (auto) 10.9 H Absolute Nucleated RBC 0.000 Nucleated RBC % 0.0 PT 14.7 INR 1.1 APTT 27.9 Puncture Site ABG pH ABG pCO2 ABG pO2 ABG PO2/FiO2 Ratio ABG HCO3 ABG O2 Saturation ABG O2 Content ABG Base Excess A-a Gradient Oxyhemoglobin Total Hemoglobin O2 Delivery Device O2 Liters/Min FiO2 Sodium 139 Potassium 4.1 Chloride 99 Carbon Dioxide 28 Anion Gap 12 BUN 43 H Creatinine 2.16 H Estim Creat Clear Calc 17 Estimated GFR 22 L Glucose 196 H Calcium 9.4 Phosphorus Magnesium 1.8 Total Bilirubin 1.0 AST 24 ALT 21 Alkaline Phosphatase 81 Troponin I 0.017 Total Protein 6.0 L Albumin 3.8 Urine Color Yellow Urine Appearance Clear Urine pH 5.0 Ur Specific [place] 1.009 Urine Protein Trace Urine Glucose (UA) Negative Urine Ketones Negative Ur Blood (Man) Negative Urine Nitrate Negative Urine Bilirubin Negative Urine Urobilinogen 0.2 Leukocyte Esterase Rfl Negative Urine RBC 0-2 Urine WBC 0-5 Ur Squamous Epith Cells None seen Urine Bacteria None seen Urine Casts 0-2 06/19/24 06/20/24 06/20/24 23:34 00:58 04:47 WBC RBC Hgb Hct MCV MCH MCHC RDW Plt Count MPV Immature Gran % (Auto) Neut % (Auto) Lymph % (Auto) [place] % (Auto) Eos % (Auto) Baso % (Auto) Lymph # (Auto) [place] # (Auto) Eos # (Auto) Baso # (Auto) Abs Immat Gran (auto) Absolute Neuts (auto) Absolute Nucleated RBC Nucleated RBC % PT INR APTT Puncture Site Right radial ABG pH 7.514 H* ABG pCO2 33.0 L ABG pO2 79.6 L ABG PO2/FiO2 Ratio 3.79 ABG HCO3 26.0 ABG O2 Saturation 96.8 ABG O2 Content 14.8 L ABG Base Excess 3.3 A-a Gradient 30.6 Oxyhemoglobin 95.2 Total Hemoglobin 11.0 L O2 Delivery Device Not Reportable O2 Liters/Min Not Reportable FiO2 21 Sodium 135 L Potassium 3.2 L Chloride 97 L Carbon Dioxide 26 Anion Gap 12 BUN 46 H Creatinine 2.01 H Estim Creat Clear Calc 16 Estimated GFR 23 L Glucose 142 H Calcium 9.2 Phosphorus 4.3 Magnesium 2.9 H Total Bilirubin 0.4 AST 23 ALT 20 Alkaline Phosphatase 75 Troponin I 0.017 Total Protein 6.0 L Albumin 3.7 Urine Color Urine Appearance Urine pH Ur Specific [place] Urine Protein Urine Glucose (UA) Urine Ketones Ur Blood (Man) Urine Nitrate Urine Bilirubin Urine Urobilinogen Leukocyte Esterase Rfl Urine RBC Urine WBC Ur Squamous Epith Cells Urine Bacteria Urine Casts 06/20/24 04:48 WBC 12.3 H RBC 3.32 L Hgb 10.2 L Hct 30.6 L MCV 92.2 MCH 30.7 MCHC 33.3 RDW 13.5 Plt Count 245 MPV 10.9 H Immature Gran % (Auto) Neut % (Auto) Lymph % (Auto) [place] % (Auto) Eos % (Auto) Baso % (Auto) Lymph # (Auto) [place] # (Auto) Eos # (Auto) Baso # (Auto) Abs Immat Gran (auto) Absolute Neuts (auto) Absolute Nucleated RBC Nucleated RBC % PT INR APTT Puncture Site ABG pH ABG pCO2 ABG pO2 ABG PO2/FiO2 Ratio ABG HCO3 ABG O2 Saturation ABG O2 Content ABG Base Excess A-a Gradient Oxyhemoglobin Total Hemoglobin O2 Delivery Device O2 Liters/Min FiO2 Sodium Potassium Chloride Carbon Dioxide Anion Gap BUN Creatinine Estim Creat Clear Calc Estimated GFR Glucose Calcium Phosphorus Magnesium Total Bilirubin AST ALT Alkaline Phosphatase Troponin I Total Protein Albumin Urine Color Urine Appearance Urine pH Ur Specific [place] Urine Protein Urine Glucose (UA) Urine Ketones Ur Blood (Man) Urine Nitrate Urine Bilirubin Urine Urobilinogen Leukocyte Esterase Rfl Urine RBC Urine WBC Ur Squamous Epith Cells Urine Bacteria Urine Casts Multiple EKGs and telemetry was reviewed in detail. EXAMINATION: CT brain wo con DATE: 06/19/2024 08:09 INDICATION: Head injury. Fall. TECHNIQUE: Computed tomography (CT) of the head was performed without intravenous contrast. The mA was adjusted according to patient size. Iterative reconstruction technique was employed. The dose-length product was 908.00 mGy-cm. COMPARISON: Head CT 11/08/2021 FINDINGS: There are scattered areas of low attenuation in the cerebral white matter. There is no intracranial hemorrhage, acute infarction, or abnormal intracranial mass lesion. The ventricles are normal in size. There are likely changes of ocular lens replacement surgeries. There is near complete opacification of left frontal sinus with thickening and sclerosis of the sinus adams, consistent with chronic sinusitis. There is mucosal thickening in the left anterior ethmoid sinuses. The mastoid air cells are normal. There is a left-sided scalp laceration with skin maira. IMPRESSION: 1. Worsened extensive nonspecific cerebral white matter disease, which likely represents chronic small vessel ischemic disease. 2. Chronic sinusitis. Assessment and Plan Assessment and plan (1) Torsades de pointes: Code(s): I47.21 - Torsades de pointes Status: Acute (2) Ventricular bigeminy: Code(s): I49.8 - Other specified cardiac arrhythmias Status: Acute (3) Ventricular tachycardia: Code(s): I47.20 - Ventricular tachycardia, unspecified Status: Acute (4) Syncope, cardiogenic: Code(s): R55 - Syncope and collapse Status: Acute (5) Symptomatic bradycardia: Code(s): R00.1 - Bradycardia, unspecified Status: Acute (6) Dementia: Qualifiers: Dementia type: unspecified type Dementia severity: moderate Dementia behavioral or psychological symptom: with mood disturbance Qualified Code(s): F03.B3 - Unspecified dementia, moderate, with mood disturbance Code(s): F03.90 - Unspecified dementia, unspecified severity, without behavioral disturbance, psychotic disturbance, mood disturbance, and anxiety Status: Acute Plan Patient had cardiogenic syncope likely due to unstable cardiac rhythm with episodes of V-tach torsades and ventricular bigeminy with subsequent symptomatic bradycardia. Patient was transferred to the ICU for lidocaine infusion and initial plan was to transfer the patient to tertiary care. However family had decided at this time that they would like to change the patient's code status to DNR/DNI and declined transfer for evaluation by electrophysiology. They feel that the patient would not want a pacemaker placement in would not want cardiopulmonary resuscitation if her heart were to stop. However they want to continue with lidocaine infusion. They wanted to contact some other family members before making further decisions. The patient's case was discussed in detail with both the cardiology service and reading professor. The patient's rhythm did improve significantly after initiation of lidocaine infusion NG has not had any further episodes of ventricular tachycardia after initiation of the lidocaine. We impacted the with now patient is having bradycardia. Amiodarone will be discontinued. Blood pressures remained stable. The patient remains pleasantly confused. 105 minute spent in critical care activities . Due to a high probability of clinically significant, life threatening deterioration, the patient required my highest level of preparedness to intervene emergently and I personally spent this critical care time directly and personally managing the patient. This critical care time included obtaining a history; examining the patient; pulse oximetry; ordering and review of studies; arranging urgent treatment with development of a management plan; evaluation of patient's response to treatment; frequent reassessment; and discussions with other providers. It was exclusive of separately billable procedures and treating other patients and teaching time. Please see Assessment and Plan section and the rest of the note for further information on patient assessment and treatment. Quality VTE Prophylaxis VTE prophylaxis: mechanical ordered (SCDs) Hospitalist MIPS Advance Care Plan I have confirmed that the patient's Advanced Care Plan is present, code status is documented, or surrogate decision maker is listed in patient medical record.: Yes Medication Reconciliation I have utilized all available resources to obtain, update and review the patients current medications (includes all prescriptions, OTC, herbals, cannabis, and nutritional supplements).: Yes
[2024-06-20] VITALS (20 sets, daily range): BP systolic 115–171; BP diastolic 35–80; PULSE 43–65; RESP 14–20; TEMP 36.5–36.8; O2SAT 90–99
--- NOTE | 2024-06-20 00:08 | ADMGEN ---
This patient, Tali Land, was admitted to IMU Room 206-01 at 2027. Patient/family oriented to hospital policies and general routines including ID bracelet, bed and alarms, visiting hours, pain management, procedures, bathroom and other care routines, personal items, smoking policy, room service/diet, and visiting hours. Information on how to activate the Rapid Response Team has been discussed. Patient/Family are encouraged to report perceived risks to care and to ask questions if they do not understand what they are told or what they should do.
--- NOTE | 2024-06-20 00:55 | PC.NURSE ---
daughter at bedside, updated with pts current status verbalize o questions.
[2024-06-20] MEDS: LIDOCAINE IV CONT (01:27)
[2024-06-20] MEDS: DEXTROSE IV CONT (01:27)
[2024-06-20 01:32] LABS: Troponin I 0.017 ng/mL (0.000-0.034)
--- NOTE | 2024-06-20 01:43 | PC.NURSE ---
Called Cardiology, spoke with Dr. Suh. Patient having persistent runs of V-tach, some runs in the 20+ and possible Torsades. Orders provided. Dr. Mendosa was also notified and patient was transferred to ICU. Family, Love (POA) & Dena (daughters) were called and updated on situation. DNR status was confirmed.
[2024-06-20 04:52] LABS: Hematocrit 30.6 % (37.0-47.0); Hemoglobin 10.2 g/dL (12.0-15.0); Mean Corpuscular HGB Conc 33.3 g/dl (32-36); Mean Corpuscular Hemoglobin 30.7 pg (26-34); Mean Corpuscular Volume 92.2 fl (80-100); Mean Platelet Volume 10.9 fl (7.4-10.4); Platelet Count Result 245 k/mm3 (150-375); Red Blood Count 3.32 M/mm3 (4.2-5.4); Red Cell Distribution Width 13.5 % (11.5-14.5); White Blood Count 12.3 K/mm3 (4.5-10.0)
[2024-06-20 05:04] LABS: Alanine Aminotransferase 20 U/L (6-35); Albumin Level 3.7 g/dL (3.5-5.1); Alkaline Phosphatase 75 U/L (38-126); Anion Gap 12 mmol/L (4-12); Aspartate Amino Transferase 23 U/L (14-36); Bilirubin,Total 0.4 mg/dL (0.2-1.3); Blood Urea Nitrogen 46 mg/dL (7-17); Calcium 9.2 mg/dL (8.4-10.2); Carbon Dioxide 26 mmol/L (22-30); Chloride 97 mmol/L (98-107); Estimated CRCL calculation 16 ml/min; Estimated Glomerular Filt Rate 23; Glucose 142 mg/dL (65-110); Phosphorus 4.3 mg/dL (2.5-4.5); Potassium 3.2 mmol/L (3.4-5.0); Sodium 135 mmol/L (137-145)
[2024-06-20 05:50] LABS: Magnesium 2.9 mg/dL (1.6-2.3)
[2024-06-20] MEDS: POTASSIUM CHLORIDE 20 MEQ PACKET (FOR LIQUID) 40 MEQ PO (06:08)
[2024-06-20] MEDS: MAGNESIUM SULF 2 GM/WATER 50ML 2 GM/50 ML BAG IVPB (06:08)
[2024-06-20] MEDS: AMIODARONE 360 MG/D5W 200 ML 360 MG/200 ML BAG 33.33 MG IV CONT (06:09)
--- NOTE | 2024-06-20 08:32 | PC.NURSE ---
06/20/24 0040 patient transferred to ICU 5, personnel belongings with patient.
[2024-06-20] MEDS: POTASSIUM CHLORIDE 20 MEQ ER TABLET PO (08:42)
--- NOTE | 2024-06-20 09:16 | P.CONIN_ITS ---
Assessment and Plan Assessment and plan (1) Arrhythmia: Code(s): I49.9 - Cardiac arrhythmia, unspecified Status: Acute Assessment and Plan: 06/19/2024: Patient presented the ER from [facility] with altered mental status, many EMS arrived they found it to be in nonsustained V-tach, was given amiodarone bolus and brought to the ED. Patient was admitted to the intermediate Unit where she had sustained V-tach of 30-40 beats. Patient also went into torsades, was started on amiodarone infusion, cardiology was notified and recommended starting lidocaine infusion which was done. -patient regarding this morning, discontinued amiodarone, -continue lidocaine -await Cardiology evaluation -family does not want any procedures at this time, patient is a DNR/DNI, may be thinking of comfort measures later today (2) Syncope, cardiogenic: Code(s): R55 - Syncope and collapse Status: Acute Assessment and Plan: 06/19: Patient did present early in on 06/19 with a fall with a head laceration, this could have been a presyncope/syncopal episode secondary to underlying heart rhythm (3) Dementia: Qualifiers: Dementia type: unspecified type Dementia severity: moderate Dementia behavioral or psychological symptom: with mood disturbance Qualified Code(s): F 03.B3 - Unspecified dementia, moderate, with mood disturbance Code(s): F03.90 - Unspecified dementia, unspecified severity, without behavioral disturbance, psychotic disturbance, mood disturbance, and anxiety Status: Acute Assessment and Plan: Dementia is progressing per family, she resides in the memory care [facility] for [facility] (4) Heart disease: Code(s): I51.9 - Heart disease, unspecified Status: Acute Assessment and Plan: History of cardiomyopathy, EF 55-60% -10/22/2022: Coronary angiogram 1. Right coronary dominant circulation with no angiographic evidence of ischemic heart disease. 2. Previously placed vein graft to the LAD is once again noted however is known to be occluded on previous angiography. The distal stump of this can be seen on left coronary injection. 3. normal left ventricular systolic function Plan DVT prophylaxis: Lovenox Stress ulcer prophylaxis: Not indicated Nutrition: NPO except sips with meds Code Status: DNR/DNI Critical Care Time Spent: 48 minutes Discussed with taisha reyna at bedside and updated her with patient's condition and plan of care Due to a high probability of clinically significant, life threatening deterioration, the patient required my highest level of preparedness to intervene emergently and I personally spent this critical care time directly and personally managing the patient. This critical care time included obtaining a history; examining the patient; pulse oximetry; ordering and review of studies; arranging urgent treatment with development of a management plan; evaluation of patient's response to treatment; frequent reassessment; and discussions with other providers. It was exclusive of separately billable procedures and treating other patients and teaching time. Please see Assessment and Plan section and the rest of the note for further information on patient assessment and treatment This dictation may have been done utilizing a voice recognition system. Attempts have been made to correct errors. However, there may be uncorrected grammatical, spelling, and recognitions errors present. [employer] Boxes Consult Note Consult date: 06/20/24 Reason for consult: Altered mental status, arrhythmias, hypokalemia HPI: Tali Land is a 88 year old female with past medical history of cardiomyopathy, essential hypertension, CVA, hyperlipidemia, chronic kidney disease stage 3, dementia, lives in the [facility] presented the ED on 06/19/2024 with complains of altered mental status. On 06/19/2024 early during the day patient did presented with a fall and sustained a laceration to the head, was transferred back to the shelter once his CT scans were negative. Only to return later in the evening with altered mental status, upon arrival of the EMS patient had nonsustained V-tach, was given a bolus of amiodarone and patient was brought to to the ER at [facility]. Patient was admitted to the IMU and through the night patient had multiple episodes of arrhythmias, sustained V-tach up to 30-40 beats with intermittent bursts of torsades interspinous with bigeminy. Patient was transferred to the ICU, amiodarone infusion was started despite which patient continue to have arrhythmias that is with lidocaine infusion was started. Cardiology aware. Patient has progressive dementia with decreased quality of life. After arrival to the ICU patient's labs were: WBC count was 12.3, hemoglobin 10.2, platelet count of 245, INR of 1.1, potassium of 3.2, creatinine of 2.01 (baseline creatinine is between 1.30-1.50). Blood sugars over 142, potassium of 2.9 Patient seen and examined the ICU this morning, is awake, confused, is unable to tell me where she is, what year is it over who is the president. She is able to follow simple commands in all extremities. Denies any chest pain, shortness of breath, abdominal pain, nausea vomiting at this time. Low urine output, afebrile. Sinus bradycardia with intermittent bigeminy. Amiodarone infusion has been stopped this morning. Blood pressures remain stable Review of Systems 2 Review of Systems: All systems reviewed & are unremarkable except as noted in HPI and below [facility] Past Medical History Medical History (Updated 06/20/24 @ 09:35 by Jimi Uriostegui MD) Carotid stenosis Lichenified eczema TIA (transient ischemic attack) Dementia Prediabetes Vitamin D deficiency Obstructive hypertrophic cardiomyopathy HTN (hypertension) CVA (cerebral vascular accident) Hyperlipidemia Chronic kidney disease, stage 3 (moderate) Surgical History Surgical History (Updated 06/20/24 @ 08:43 by Emily Mendosa DO) History of lumpectomy of right breast 07/2020 History of partial nephrectomy Partial left nephrectomy due to the renal cell carcinoma History of myomectomy Septal myomectomy 2006 Hx of CABG 2 vessel 2009 Family History Family History Sibling Patient's sister is in good health Family history of malignant melanoma Mother Colon cancer Unknown Hypertension Social History Social History (Updated 06/20/24 @ 08:45 by Emily Mendosa DO) Social History: The patient resides at [facility]. She raised 4 children. Code status: DNR/DNI Healthcare power of employment attorney: Julianne Land (daughter) Smoking status: Never smoker Second hand tobacco smoke exposure: No Alcohol intake: never Substance use: never Substance use type: does not use Do You Feel Safe in your Home?: Yes Lack of Transportation: No Lack of Food: Never True Current Housing: I Do Not Have Housing Concerned About Future Housing: No Difficulty Paying Gas/Electric Bills: No Difficulty Paying for Meds: No Currently Unemployed: No Education: High School Diploma/GED Difficulty w/ Childcare or Family Care: No Living arrangements: other Additional living arrangements comments: [facility] AT [facility] Spiritual care concerns: No Meds Home Medications and Allergies Home Medications ?Medication ?Instructions ?Recorded ?Confirmed ?Type triamcinolone acetonide 0.1 % 1 applic topical BID #80 grams 09/25/22 03/27/24 Rx topical cream clopidogrel 75 mg tablet 75 mg PO DAILY #90 tabs 01/11/23 03/27/24 Rx metoprolol tartrate 50 mg tablet 50 mg PO DAILY #90 tabs 05/20/23 03/27/24 Rx pravastatin 20 mg tablet 20 mg PO DAILY #90 tabs 07/10/23 03/27/24 Rx tramadol 50 mg tablet 50 mg PO Q6H PRN pain #12 tabs 07/10/23 03/27/24 Rx hydroxyzine pamoate 25 mg capsule See Rx Instructions .Route 11/14/23 03/27/24 History .COMPLEX PRN Anxiety acetaminophen 325 mg tablet 650 mg PO Q4H PRN Pain 02/28/24 03/27/24 History amlodipine 10 mg tablet 10 mg PO DAILY 02/28/24 03/27/24 History chlorthalidone 25 mg tablet 25 mg PO DAILY 02/28/24 03/27/24 History magnesium hydroxide 30 ml PO DAILY PRN Constipation 02/28/24 03/27/24 History nitroglycerin 0.4 mg sublingual 0.4 mg sublingual Q5MIN PRN Chest 02/28/24 03/27/24 Rx tablet (Nitrostat) Pain #21 tabs quetiapine 25 mg tablet 12.5 mg PO HS 02/28/24 03/27/24 History quetiapine 25 mg tablet 25 mg PO HS 02/28/24 03/27/24 History trazodone 50 mg tablet 50 mg PO HS PRN Insomnia 02/28/24 03/27/24 History cephalexin 500 mg capsule 500 mg PO Q8H #30 caps 03/27/24 03/27/24 Rx citalopram 20 mg tablet 20 mg PO DAILY 06/05/24 History divalproex 125 mg tablet,delayed 125 mg PO BID 06/05/24 History release (Depakote) Allergies Allergy/AdvReac Type Severity Reaction Status Date / Time oxycodone (From Percocet) AdvReac Hallucinati Verified 03/27/24 09:57 ng Vital Signs Vital Signs - 24 hr 06/19/24 15:48 06/19/24 16:06 06/19/24 16:17 Temperature 97.4 F L Pulse Rate 55 L 53 L Respiratory Rate 19 20 Blood Pressure 132/45 L Pulse Oximetry 98 100 98 Oxygen Delivery Room Air Room Air 06/19/24 16:24 06/19/24 16:29 06/19/24 16:37 Temperature Pulse Rate 67 51 L 51 L Respiratory Rate Blood Pressure 132/45 L 121/43 L 121/43 L Pulse Oximetry Oxygen Delivery 06/19/24 16:51 06/19/24 18:04 06/19/24 19:14 Temperature Pulse Rate 52 L 56 L 57 L Respiratory Rate 19 15 16 Blood Pressure 125/45 L 139/72 105/80 Pulse Oximetry 98 97 100 Oxygen Delivery 06/19/24 20:28 06/19/24 20:50 06/19/24 22:33 Temperature 97.7 F Pulse Rate 77 60 Respiratory Rate 16 Blood Pressure 142/94 H Pulse Oximetry 90 Oxygen Delivery Room Air 06/19/24 22:45 06/19/24 23:25 06/19/24 23:35 Temperature Pulse Rate 68 60 60 Respiratory Rate Blood Pressure 115/44 L Pulse Oximetry Oxygen Delivery 06/20/24 00:00 06/20/24 00:30 06/20/24 00:46 Temperature Pulse Rate 60 53 L 65 Respiratory Rate 16 Blood Pressure 133/55 L Pulse Oximetry 90 Oxygen Delivery Room Air 06/20/24 00:46 06/20/24 01:27 06/20/24 02:00 Temperature 98.1 F Pulse Rate 65 60 53 L Respiratory Rate 16 Blood Pressure 133/55 L 145/80 H 145/55 H Pulse Oximetry 97 Oxygen Delivery 06/20/24 02:00 06/20/24 02:46 06/20/24 02:46 Temperature 97.7 F Pulse Rate 50 L 53 L 60 Respiratory Rate 17 Blood Pressure 145/55 H 141/71 H Pulse Oximetry 94 Oxygen Delivery 06/20/24 04:00 06/20/24 04:00 06/20/24 04:00 Temperature 98.2 F Pulse Rate 45 L 45 L 45 L Respiratory Rate 17 20 Blood Pressure 147/52 H Pulse Oximetry 96 96 Oxygen Delivery Room Air 06/20/24 04:00 06/20/24 04:00 06/20/24 05:42 Temperature Pulse Rate 46 L 46 L 49 L Respiratory Rate Blood Pressure 147/52 H 147/52 H Pulse Oximetry Oxygen Delivery 06/20/24 05:42 06/20/24 06:00 06/20/24 06:09 Temperature 98.1 F Pulse Rate 49 L 49 L 43 L Respiratory Rate 18 Blood Pressure 140/54 L 138/49 L 135/49 L Pulse Oximetry 98 Oxygen Delivery 06/20/24 07:11 06/20/24 08:00 06/20/24 08:00 Temperature 98.3 F 97.7 F Pulse Rate 44 L 49 L 48 L Respiratory Rate 17 16 Blood Pressure 116/35 L 115/57 L 115/57 L Pulse Oximetry 95 98 Oxygen Delivery 06/20/24 08:00 Temperature Pulse Rate 48 L Respiratory Rate Blood Pressure 115/57 L Pulse Oximetry Oxygen Delivery Exam 2 Narrative: General: Pleasant, elderly female in no acute distress HEENT:? Left pupil slightly larger than the right, reactive, sclera is clear Neck:? Some Respiratory:? Clear to auscultation bilaterally, no wheezing, adequate air and Cardiac:? Irregular rhythm, bradycardic, systolic murmur appreciated Abdomen:? Soft, nontender, nondistended, hypoactive bowel sound Extremities:? Trace edema bilateral lower extremity, palpable pedal pulses Neuro:? Patient is awake, follows simple commands, answers to questions but is not oriented due to dementia Skin:? Bruising noted in the upper extremities Psych:? Unable to assess due to confusion and dementia Results Labs 06/20/24 04:48 06/20/24 04:47 Labs: Short CBC 06/19/24 06/20/24 Range/Units 16:14 04:48 WBC 12.5 H 12.3 H (4.5-10.0) K/mm3 Hgb 10.7 L 10.2 L (12.0-15.0) g/dL Hct 32.7 L 30.6 L (37.0-47.0) % Plt Count 266 245 (150-375) k/mm3 BMP 06/19/24 06/20/24 16:14 04:47 Sodium 139 135 L Potassium 4.1 3.2 L Chloride 99 97 L Carbon Dioxide 28 26 BUN 43 H 46 H Creatinine 2.16 H 2.01 H Glucose 196 H 142 H Calcium 9.4 9.2 Cardiac Enzymes 06/19/24 06/20/24 Range/Units 21:35 00:58 Troponin I 0.017 0.017 (0.000-0.034) ng/mL Liver Function 06/19/24 06/20/24 Range/Units 16:14 04:47 Total Bilirubin 1.0 0.4 (0.2-1.3) mg/dL AST 24 23 (14-36) U/L ALT 21 20 (6-35) U/L Alkaline Phosphatase 81 75 (38-126) U/L Albumin 3.8 3.7 (3.5-5.1) g/dL Urine 06/19/24 Range/Units 18:14 Urine Color Yellow (Yellow) Urine Appearance Clear (Clear) Urine pH 5.0 (5.0-9.0) Ur Specific [place] 1.009 (1.001-1.035) Urine Protein Trace (Negative) mg/dL Urine Glucose (UA) Negative (Negative) mg/dL Quality VTE Prophylaxis VTE prophylaxis: pharmacologic ordered Hospitalist MIPS Advance Care Plan I have confirmed that the patient's Advanced Care Plan is present, code status is documented, or surrogate decision maker is listed in patient medical record.: Yes Medication Reconciliation I have utilized all available resources to obtain, update and review the patients current medications (includes all prescriptions, OTC, herbals, cannabis, and nutritional supplements).: Yes
[2024-06-20] MEDS: PANTOPRAZOLE SODIUM IV 40 MG VIAL IV PUSH (11:32)
[2024-06-20] MEDS: ENOXAPARIN 30 MG/0.3 ML SYRINGE SUB-Q (11:33)
[2024-06-20 12:21] LABS: Glucose Point of Care 127 mg/dl (65-105)
--- NOTE | 2024-06-20 13:19 | P.CONCA_ITS ---
Assessment and Plan Assessment and plan (1) Ventricular tachycardia: Code(s): I47.20 - Ventricular tachycardia, unspecified Status: Acute Assessment and Plan: 88-year-old female with hypertension, hypertrophic cardiomyopathy status post ? Septal myomectomy, ? CAD, history of CVA, CKD, dementia. Patient admitted to the hospital with syncope, fall, found to have nonsustained and sustained ventricular tachycardia. She was treated with amiodarone and lidocaine. After extensive discussion with the patient's daughters, they have decided to pursue comfort care for the patient. Patient has advanced age, multiple comorbidities and dementia. Recommend LAD care evaluation and may consider hospice. May transfer out of ICU. Plan discussed with the ICU team. History of Present Illness History of Present Illness Consult date/time: 06/20/24 13:19 Requesting physician: Suresh Yu MD Consult reason: Other (Nonsustained V-tach) Reason For Visit: Non sustained Ventricular tachycardia Narrative: DATE OF CONSULT: 06/20/2024 REASON FOR CONSULT: Nonsustained V-tach REQUESTING PHYSICIAN:Suresh Yu MD CHIEF COMPLAINT: Brought to the hospital with altered mental status and fall HPI: 88-year-old female with hypertension, hypertrophic cardiomyopathy status post ? Septal myomectomy, ? CAD, history of CVA, CKD, dementia. Patient brought to [facility] [place] [facility] via EMS with altered mental status and fall. Patient is unable to provide medical information to dementia and altered mental status. At the time of evaluation, she denied ongoing chest pain. Information was also gathered from review of the chart and from patient's 2 daughters. In the ER, patient was found to have sustained V-tach and was initiated on amiodarone. Subsequently, lidocaine was added in the ICU. EKG on my personal evaluation showed sinus bradycardia, chronic LBBB, PVCs in a bigeminal fashion. CT head reportedly showed Worsened extensive nonspecific cerebral white matter disease, which likely represents chronic small vessel ischemic disease. Limited echo from 02/28/2024 reportedly showed preserved LV systolic function. Review of Systems 2 Review of Systems: As per HPI, the review of systems unobtainable due to patient's dementia and altered mental status PMFSH Past Medical History Medical History Carotid stenosis Lichenified eczema TIA (transient ischemic attack) Dementia Prediabetes Vitamin D deficiency Obstructive hypertrophic cardiomyopathy HTN (hypertension) CVA (cerebral vascular accident) Hyperlipidemia Chronic kidney disease, stage 3 (moderate) Surgical History Surgical History (Updated 06/20/24 @ 08:43 by Emily Mendosa DO) History of lumpectomy of right breast 07/2020 History of partial nephrectomy Partial left nephrectomy due to the renal cell carcinoma History of myomectomy Septal myomectomy 2006 Hx of CABG 2 vessel 2009 Family History Family History Sibling Patient's sister is in good health Family history of malignant melanoma Mother Colon cancer Unknown Hypertension Social History Social History (Updated 06/20/24 @ 08:45 by Emily Mendosa DO) Social History: The patient resides at [facility]. She raised 4 children. Code status: DNR/DNI Healthcare power of research attorney: Julianne Land (daughter) Smoking status: Never smoker Second hand tobacco smoke exposure: No Alcohol intake: never Substance use: never Substance use type: does not use Do You Feel Safe in your Home?: Yes Lack of Transportation: No Lack of Food: Never True Current Housing: I Do Not Have Housing Concerned About Future Housing: No Difficulty Paying Gas/Electric Bills: No Difficulty Paying for Meds: No Currently Unemployed: No Education: High School Diploma/GED Difficulty w/ Childcare or Family Care: No Living arrangements: other Additional living arrangements comments: [facility] AT [facility] Spiritual care concerns: No Meds Home Medications and Allergies Home Medications ?Medication ?Instructions ?Recorded ?Confirmed ?Type triamcinolone acetonide 0.1 % 1 applic topical BID #80 grams 09/25/22 03/27/24 Rx topical cream clopidogrel 75 mg tablet 75 mg PO DAILY #90 tabs 01/11/23 03/27/24 Rx metoprolol tartrate 50 mg tablet 50 mg PO DAILY #90 tabs 05/20/23 03/27/24 Rx pravastatin 20 mg tablet 20 mg PO DAILY #90 tabs 07/10/23 03/27/24 Rx tramadol 50 mg tablet 50 mg PO Q6H PRN pain #12 tabs 07/10/23 03/27/24 Rx hydroxyzine pamoate 25 mg capsule See Rx Instructions .Route 11/14/23 03/27/24 History .COMPLEX PRN Anxiety acetaminophen 325 mg tablet 650 mg PO Q4H PRN Pain 02/28/24 03/27/24 History amlodipine 10 mg tablet 10 mg PO DAILY 02/28/24 03/27/24 History chlorthalidone 25 mg tablet 25 mg PO DAILY 02/28/24 03/27/24 History magnesium hydroxide 30 ml PO DAILY PRN Constipation 02/28/24 03/27/24 History nitroglycerin 0.4 mg sublingual 0.4 mg sublingual Q5MIN PRN Chest 02/28/24 03/27/24 Rx tablet (Nitrostat) Pain #21 tabs quetiapine 25 mg tablet 12.5 mg PO HS 02/28/24 03/27/24 History quetiapine 25 mg tablet 25 mg PO HS 02/28/24 03/27/24 History trazodone 50 mg tablet 50 mg PO HS PRN Insomnia 02/28/24 03/27/24 History cephalexin 500 mg capsule 500 mg PO Q8H #30 caps 03/27/24 03/27/24 Rx citalopram 20 mg tablet 20 mg PO DAILY 06/05/24 History divalproex 125 mg tablet,delayed 125 mg PO BID 06/05/24 History release (Depakote) Allergies Allergy/AdvReac Type Severity Reaction Status Date / Time oxycodone (From Percocet) AdvReac Hallucinati Verified 03/27/24 09:57 ng Vital Signs Vital Signs - 24 hr 06/19/24 15:48 06/19/24 16:06 06/19/24 16:17 Temperature 36.3 C L Pulse Rate 55 L 53 L Respiratory Rate 19 20 Blood Pressure 132/45 L Pulse Oximetry 98 100 98 Oxygen Delivery Room Air Room Air 06/19/24 16:24 06/19/24 16:29 06/19/24 16:37 Temperature Pulse Rate 67 51 L 51 L Respiratory Rate Blood Pressure 132/45 L 121/43 L 121/43 L Pulse Oximetry Oxygen Delivery 06/19/24 16:51 06/19/24 18:04 06/19/24 19:14 Temperature Pulse Rate 52 L 56 L 57 L Respiratory Rate 19 15 16 Blood Pressure 125/45 L 139/72 105/80 Pulse Oximetry 98 97 100 Oxygen Delivery 06/19/24 20:28 06/19/24 20:50 06/19/24 22:33 Temperature 36.5 C Pulse Rate 77 60 Respiratory Rate 16 Blood Pressure 142/94 H Pulse Oximetry 90 Oxygen Delivery Room Air 06/19/24 22:45 06/19/24 23:25 06/19/24 23:35 Temperature Pulse Rate 68 60 60 Respiratory Rate Blood Pressure 115/44 L Pulse Oximetry Oxygen Delivery 06/20/24 00:00 06/20/24 00:30 06/20/24 00:46 Temperature Pulse Rate 60 53 L 65 Respiratory Rate 16 Blood Pressure 133/55 L Pulse Oximetry 90 Oxygen Delivery Room Air 06/20/24 00:46 06/20/24 01:27 06/20/24 02:00 Temperature 36.7 C Pulse Rate 65 60 53 L Respiratory Rate 16 Blood Pressure 133/55 L 145/80 H 145/55 H Pulse Oximetry 97 Oxygen Delivery 06/20/24 02:00 06/20/24 02:46 06/20/24 02:46 Temperature 36.5 C Pulse Rate 50 L 53 L 60 Respiratory Rate 17 Blood Pressure 145/55 H 141/71 H Pulse Oximetry 94 Oxygen Delivery 06/20/24 04:00 06/20/24 04:00 06/20/24 04:00 Temperature 36.8 C Pulse Rate 45 L 45 L 45 L Respiratory Rate 17 20 Blood Pressure 147/52 H Pulse Oximetry 96 96 Oxygen Delivery Room Air 06/20/24 04:00 06/20/24 04:00 06/20/24 05:42 Temperature Pulse Rate 46 L 46 L 49 L Respiratory Rate Blood Pressure 147/52 H 147/52 H Pulse Oximetry Oxygen Delivery 06/20/24 05:42 06/20/24 06:00 06/20/24 06:09 Temperature 36.7 C Pulse Rate 49 L 49 L 43 L Respiratory Rate 18 Blood Pressure 140/54 L 138/49 L 135/49 L Pulse Oximetry 98 Oxygen Delivery 06/20/24 07:11 06/20/24 08:00 06/20/24 08:00 Temperature 36.8 C 36.5 C Pulse Rate 44 L 49 L 48 L Respiratory Rate 17 16 Blood Pressure 116/35 L 115/57 L 115/57 L Pulse Oximetry 95 98 Oxygen Delivery 06/20/24 08:00 06/20/24 08:00 06/20/24 10:00 Temperature Pulse Rate 48 L 53 L 46 L Respiratory Rate Blood Pressure 115/57 L 133/58 L Pulse Oximetry Oxygen Delivery 06/20/24 10:00 06/20/24 10:00 06/20/24 10:48 Temperature Pulse Rate 47 L 46 L 49 L Respiratory Rate 14 Blood Pressure 133/58 L 143/50 H Pulse Oximetry 97 Oxygen Delivery 06/20/24 11:32 Temperature 36.6 C Pulse Rate Respiratory Rate Blood Pressure Pulse Oximetry Oxygen Delivery Exam 2 Narrative: PHYSICAL EXAMINATION: GENERAL: Elderly female, alert but confused MENTAL STATUS: Confuse, no agitation EYES: Extraocular movements intact, no pallor EARS: External ears appear normal NOSE: Normal and patent, no discharge MOUTH: Mucous membranes moist, tongue normal NECK: Supple, no JVD CHEST: Poor respiratory effort HEART: Normal rhythm with ectopic beats ABDOMEN: Soft, nontender NEUROLOGICAL: Alert, confused MUSCULOSKELETAL: no amputation EXTREMITIES: No pedal edema, no clubbing, no cyanosis SKIN: no rash on the exposed area, no cyanosis PSYCHIATRIC: No agitation Results Labs and Meds 06/20/24 04:48 06/20/24 04:47 Lab results: Cardiac Enzymes 06/19/24 06/19/24 06/20/24 Range/Units 16:14 21:35 00:58 AST 24 (14-36) U/L Troponin I 0.017 0.017 (0.000-0.034) ng/mL 06/20/24 Range/Units 04:47 AST 23 (14-36) U/L Troponin I (0.000-0.034) ng/mL Coagulation 06/19/24 Range/Units 16:14 PT 14.7 (11.1-14.7) Seconds APTT 27.9 (22.3-36.8) Seconds CBC 06/19/24 06/20/24 Range/Units 16:14 04:48 WBC 12.5 H 12.3 H (4.5-10.0) K/mm3 RBC 3.50 L 3.32 L (4.2-5.4) M/mm3 Hgb 10.7 L 10.2 L (12.0-15.0) g/dL Hct 32.7 L 30.6 L (37.0-47.0) % Plt Count 266 245 (150-375) k/mm3 Lymph # (Auto) 1.07 (0.9-3.2) K/mm3 [place] # (Auto) 0.5 (0.1-0.6) K/mm3 Eos # (Auto) 0.0 (0-0.3) K/mm3 Baso # (Auto) 0.0 (0.0-0.1) K/mm3 Comprehensive Metabolic Panel 06/19/24 06/20/24 Range/Units 16:14 04:47 Sodium 139 135 L (137-145) mmol/L Potassium 4.1 3.2 L (3.4-5.0) mmol/L Chloride 99 97 L (98-107) mmol/L Carbon Dioxide 28 26 (22-30) mmol/L BUN 43 H 46 H (7-17) mg/dL Creatinine 2.16 H 2.01 H (0.7-1.0) mg/dL Glucose 196 H 142 H (65-110) mg/dL Calcium 9.4 9.2 (8.4-10.2) mg/dL AST 24 23 (14-36) U/L ALT 21 20 (6-35) U/L Alkaline Phosphatase 81 75 (38-126) U/L Total Protein 6.0 L 6.0 L (6.3-8.2) g/dL Albumin 3.8 3.7 (3.5-5.1) g/dL Intake and Output 06/19/24 06/20/24 06/20/24 23:59 07:59 15:59 Intake Total 350 343.6 144 Output Total 100 300 Balance 250 43.6 144 Intake: IV 350 323.6 144 Amiodarone 150 mg/D5w 100 ml 150 150 mg In 100 ml @ 15 MG/MIN 600 mls/hr IV CONT .Q10M ONE Rx #:[id number] Amiodarone 360 mg/D5w 200 ml 200 187.1 360 mg In 200 ml @ 1 MG/MIN 33. 333 mls/hr IV CONT .Q6H ONE Rx# :[id number] Lidocaine/D5w 4 mg/ml 2 gm In 136.5 144 500 ml @ 2 MG/MIN 30 mls/hr IV CONT .[id number] [facility] Rx#:[id number] Oral 20 Output: Urine 100 300 Patient Weight 06/20/24 23:59 Weight 65 kg
--- NOTE | 2024-07-22 11:14 | PM.DS ---
DS: Admitting Diagnosis Discharge Date 06/20/24 Admitting Diagnosis Altered mental status, arrhythmia, hypokalemia DS: Discharge Diagnosis Discharge Diagnosis (1) Arrhythmia: Code(s): I49.9 - Cardiac arrhythmia, unspecified Status: Acute Assessment and Plan: 06/19/2024: Patient presented the ER from [facility] with altered mental status, many EMS arrived they found it to be in nonsustained V-tach, was given amiodarone bolus and brought to the ED. Patient was admitted to the intermediate Unit where she had sustained V-tach of 30-40 beats. Patient also went into torsades, was started on amiodarone infusion, cardiology was notified and recommended starting lidocaine infusion which was done. -patient bradycardic so amiodarone was discontinue -continue lidocaine -appreciate cardiology evaluation -family does not want any procedures at this time, patient is a DNR/DNI, may be thinking of comfort measures later today (2) Syncope, cardiogenic: Code(s): R55 - Syncope and collapse Status: Acute Assessment and Plan: 06/19: Patient did present early in on 06/19 with a fall with a head laceration, this could have been a presyncope/syncopal episode secondary to underlying heart rhythm (3) Dementia: Qualifiers: Dementia type: unspecified type Dementia severity: moderate Dementia behavioral or psychological symptom: with mood disturbance Qualified Code(s): F03.B3 - Unspecified dementia, moderate, with mood disturbance Code(s): F03.90 - Unspecified dementia, unspecified severity, without behavioral disturbance, psychotic disturbance, mood disturbance, and anxiety Status: Acute Assessment and Plan: Dementia is progressing per family, she resides in the memory care center of a residential (4) Heart disease: Code(s): I51.9 - Heart disease, unspecified Status: Acute Assessment and Plan: History of cardiomyopathy, EF 55-60% -10/22/2022: Coronary angiogram 1. Right coronary dominant circulation with no angiographic evidence of ischemic heart disease. 2. Previously placed vein graft to the LAD is once again noted however is known to be occluded on previous angiography. The distal stump of this can be seen on left coronary injection. 3. normal left ventricular systolic function Plan DVT prophylaxis: Lovenox Stress ulcer prophylaxis: Not indicated Nutrition: NPO except sips with meds Code Status: DNR/DNI Discussed with daughter maribell at bedside and updated her with patient's condition and plan of care. family does not want any procedures at this time, patient is a DNR/DNI, patient was made comfort measures and admitted to hospice Due to a high probability of clinically significant, life threatening deterioration, the patient required my highest level of preparedness to intervene emergently and I personally spent this critical care time directly and personally managing the patient. This critical care time included obtaining a history; examining the patient; pulse oximetry; ordering and review of studies; arranging urgent treatment with development of a management plan; evaluation of patient's response to treatment; frequent reassessment; and discussions with other providers. It was exclusive of separately billable procedures and treating other patients and teaching time. Please see Assessment and Plan section and the rest of the note for further information on patient assessment and treatment This dictation may have been done utilizing a voice recognition system. Attempts have been made to correct errors. However, there may be uncorrected grammatical, spelling, and recognitions errors present. DS: Summary Hospital Course Reason for hospitalization: Patient had syncope, fall, altered mental status, fall, arrhythmia, sustained and nonsustained V-tach Hospital Course: Tali Land is a 88 year old female with past medical history of cardiomyopathy, essential hypertension, CVA, hyperlipidemia, chronic kidney disease stage 3, dementia, lives in the [facility] presented the ED on 06/19/2024 with complains of altered mental status. On 06/19/2024 early during the day patient did presented with a fall and sustained a laceration to the head, was transferred back to the residential once his CT scans were negative. Only to return later in the evening with altered mental status, upon arrival of the EMS patient had nonsustained V-tach, was given a bolus of amiodarone and patient was brought to to the ER at [facility]. Patient was admitted to the IMU and through the night patient had multiple episodes of arrhythmias, sustained V-tach up to 30-40 beats with intermittent bursts of torsades interspinous with bigeminy. Patient was transferred to the ICU, amiodarone infusion was started despite which patient continue to have arrhythmias that is with lidocaine infusion was started. Cardiology aware. Patient has progressive dementia with decreased quality of life. After arrival to the ICU patient's labs were: WBC count was 12.3, hemoglobin 10.2, platelet count of 245, INR of 1.1, potassium of 3.2, creatinine of 2.01 (baseline creatinine is between 1.30-1.50). Blood sugars over 142, potassium of 2.9 -cardiology evaluated the patient, the family had decided to not pursue with any interventions, patient was made hospice and discharge to hospice care Status at Discharge Cognitive/behavioral status at discharge: Discharge to hospice -condition guarded Time Spent with Patient Time attestation: Total time spent providing and/or coordinating discharge services: Time spent: Less than 30 minutes Exam Narrative: General: elderly female in no acute distress HEENT:? Left pupil slightly larger than the right, reactive, sclera is clear Neck:? Some Respiratory:? Clear to auscultation bilaterally, no wheezing, adequate air and Cardiac:? Irregular rhythm, bradycardic, systolic murmur appreciated Abdomen:? Soft, nontender, nondistended, hypoactive bowel sound Extremities:? Trace edema bilateral lower extremity, palpable pedal pulses Neuro:? Patient is awake, follows simple commands, answers to questions but is not oriented due to dementia Skin:? Bruising noted in the upper extremities Psych:? Unable to assess due to confusion and dementia Discharge Plan Discharge Attending physician on discharge: Agatha Hartmann Consulting providers: Nat Glez; Constantin Hernandez; Jimi Uriostegui; Emily Mendosa Discharging Clinician: Jimi Uriostegui Patient Disposition: Hospice [facility] Inpatient Patient Language: Macanese Date of admission: 06/19/24 17:28 Primary Care Provider: Mari Acuña Admitting Provider: Agatha Hartmann Attending physician on admission: Jimi Uriostegui Condition: Guarded Prognosis Quality VTE Prophylaxis VTE prophylaxis: pharmacologic ordered
== END 2024-06-20 15:24 | disposition hospice, inpatient (51) | DRG 309 ==
LOC: ANHED 17:26 → ANHICU 06-26 11:17 → ANHIMU 06-26 11:17
PROVIDERS: Internal Medicine; Admitting Provider Hospitalist; Emergency Provider Family Medicine; PCP Family Medicine; Visit Provider Internal Medicine
DX: I47.20 Ventricular tachycardia, unspecified (principal); I42.1 Obstructive hypertrophic cardiomyopathy; I47.21 Torsades de pointes; I25.10 Atherosclerotic heart disease of native coronary artery without angina pectoris; I12.9 Hypertensive chronic kidney disease with stage 1 through stage 4 chronic kidney disease, or unspecified chronic kidney disease; I65.29 Occlusion and stenosis of unspecified carotid artery; N18.30 Chronic kidney disease, stage 3 unspecified; E78.5 Hyperlipidemia, unspecified; F03.90 Unspecified dementia, unspecified severity, without behavioral disturbance, psychotic disturbance, mood disturbance, and anxiety; Z86.73 Personal history of transient ischemic attack (TIA), and cerebral infarction without residual deficits; Z95.1 Presence of aortocoronary bypass graft; Z79.02 Long term (current) use of antithrombotics/antiplatelets
CPT/HCPCS: 12002; 36415; 36600; 70450; 72125; 80048; 80053; 81001; 82805; 82948; 83735; 84100; 84484; 85018; 85025; 85027; 85610; 85730; 93005; 96365; 99285; A9270; J0282; J1650; J2002; J2470; J3475

== ENCOUNTER 2024-06-20 15:25 | HOS | payer OTHER, SELFPAY ==
--- OUTSIDE RECORDS SUMMARY | 2024-06-20 15:54 | XMS_ITS | Referral Summary ---
Author Organization [facility] Address [address] [place] [address] Care Team Providers Care Box Stacker Name Role Phone Jarrod Eason MD Unavailable [phone] Davian Mehta DO Primary Care Provider [phone] Source Comments [facility],non-owned Affiliates and Associated Physician Practices is amultiple site organization consisting of ambulatory clinics and hospital sitesin [place], [place], [place] and [place]. This disclosure is being madepursuant to the Care Everywhere program and may not contain all information available regarding this patient. Last updated 17.[facility] Allergies Active Allergy Reactions Criticality [...] Type ESSENCE MEDICARE ESSENCE MEDICARE ADV HMO/POS [id number] Effective for all dates [address] [place] [address] Medicare- Managed Care SELF PAY NO INSURANCE SELF PAY NO INSURANCE Effective for all dates [place] Self Pay ESSENCE MEDICARE ESSENCE MEDICARE ADV HMO/POS [id number] Effective for all dates [address] [place] [address] Medicare- Managed Care SELF PAY NO INSURANCE SELF PAY NO INSURANCE Effective for all dates [place] Self Pay ESSENCE MEDICARE ESSENCE MEDICARE ADV HMO/POS [id number] Effective for all dates [address] [place] [address] Medicare- Managed Care SELF PAY NO INSURANCE SELF PAY NO INSURANCE Effective for all dates [place] Self Pay ESSENCE MEDICARE ESSENCE MEDICARE ADV HMO/POS [id number] Effective for all dates [address] [place] [address] Medicare- Managed Care SELF PAY NO INSURANCE SELF PAY NO INSURANCE Effective for all dates [place] Self Pay ESSENCE MEDICARE ESSENCE MEDICARE ADV HMO/POS [id number] Effective for all dates [address] [place] [address] Medicare- Managed Care SELF PAY NO INSURANCE SELF PAY NO INSURANCE Effective for all dates [place] Self [place] ESSENCE MEDICARE ESSENCE MEDICARE ADV HMO/POS [id number] Effective for all dates [address] [place] [address] Medicare- Managed Care SELF PAY NO INSURANCE SELF PAY NO INSURANCE Effective for all dates [place] Self Pay ESSENCE MEDICARE [facility] MEDICARE ADV HMO/POS [id number] 04/08/2021-Prese nt ESSENCE CLAIMS [address] [place] [address] Medicare- Managed Care ESSENCE MEDICARE [facility] MEDICARE ADV HMO/POS [id number] 04/08/2021-Prese nt ESSENCE CLAIMS [address] [place] [address] Medicare- Managed Care ESSENCE MEDICARE [facility] MEDICARE ADV HMO/POS [id number] 04/08/2021-Prese nt ESSENCE CLAIMS [address] [place] [address] Medicare- Managed Care Care Teams Box Stacker Relationship Specialty Start Date End Date Davian Mehta DO [address] [place] [address] PCP - General 01/17/22 Jarrod Eason MD Internal Medicine 09/06/10
--- OUTSIDE RECORDS SUMMARY | 2024-06-20 15:54 | XMS_ITS ---
Author Organization [facility] [employer] [facility] Address [address] [place] [address] Care Team Providers Care Hide Grader Name Role Phone Davian Mehta DO Primary Care Provider Unavailab Dayna Larry Unavailable [phone] Emory Coleman Unavailable [phone] REASON FOR VISIT urgent medication clarification Social History Sex Assigned At : Social History Observation Description Sex Assigned At Female Encounters Encounter Location Date Provider Diagnosis [facility] [employer] [facility] [address] [place] [address] 05/22/2024 Emory Coleman Plan Of Treatment Next Appt Details Provider Name:Dayna Giang, 08/27/2024 01:30:00 PM, [address], [address], [place], [address], Progress Notes * Tali LAND MDOB:[birth year] (88 yo F)Acc No.[id number]:05/22/2024 Patient: Matilde CAMILOCORYTali :1935 A ge:88 Y S ex:Female Address:[address] [place], [address] * true * Date: Generated for Printi ng/Faxing/eTransmitting on: 0 06/20/2024 03:54 PM CDT"
--- OUTSIDE RECORDS SUMMARY | 2024-06-20 15:54 | XMS_ITS | Patient Health Summary ---
Author Organization [facility] Address [address] [place] [address] Care Team Providers Care Shot Core Drill Operator Helper Name Role Phone Jarrod Eason MD Unavailable [phone] Davian Mehta DO Primary Care Provider [phone] Note from [facility],non-owned Affiliates and Associated Physician Practices is amultiple site organization consisting of ambulatory clinics and hospital sitesin [place], [place], [place] and [place]. This disclosure is being madepursuant to the Care Everywhere program and may not contain all information available regarding this patient. Last updated 17.[facility] Allergies * Oxycodone-Acetaminophen(Vision Changes) Medications * Be [...] is included. Case Report Dermatopathology Report Case: [id number] Authorizing Provider: Alia Frausto, Collected: 07/11/2022 12:00 AM JIMMY Ordering Location: [facility] DermPath Lab Received: 07/12/2022 11:08 AM [...] characteristic determined by the Dermatopathology Laboratory at [facility], directed by Dr. Malathi Pike. These tests need not be, and therefore are not, approved by the [place] Food and Drug Administration. The tests are used for clinical purposes. Billing Codes Specimen Charges Stain Charges 23572 38534 1 1 3 4:18 PM CDT DERMATOPATHOLOGY LABORATORY Embedded Images 3 4:18 PM CDT DERMATOPATHOLOGY LABORATORY Pathology/Cytology TISSUE SPECIMEN FROM SKIN / Unknown 07/11/2022 07/12/2022 11:08 AM CDT Miscellaneous samples (specimen) TISSUE SPECIMEN FROM SKIN / Unknown 07/11/2022 07/12/2022 11:08 AM CDT Alia Frausto PA-C LAB - PATHOL OGY/CYTOLOGY ORDERABLES DERMATOPATHOLOGY LABORATORY [facility] - Department of Dermatology [address] [phone] Care Teams Shot Core Drill Operator Helper Relationship Specialty Start Date End Date Davian Mehta DO [address] [place] [address] PCP - General 01/17/22 Jarrod Eason MD Internal Medicine 09/06/10
--- OUTSIDE RECORDS SUMMARY | 2024-06-20 15:54 | XMS_ITS | Clinical Summary ---
Author Organization [facility] Address [address] [place] [address] Care Team Providers Care Project Engineer Chemicals Name Role Phone Jarrod Eason MD Unavailable [phone] Davian Mehta DO Primary Care Provider [phone] Source Comments [facility],non-owned Affiliates and Associated Physician Practices is amultiple site organization consisting of ambulatory clinics and hospital sitesin [place], [place], [place] and [place]. This disclosure is being madepursuant to the Care Everywhere program and may not contain all information available regarding this patient. Last updated 17.[facility] Allergies Active Allergy Reactions Criticality Noted [...] Type ESSENCE MEDICARE ESSENCE MEDICARE ADV HMO/POS [id number] Effective for all dates [address] [place] [address] Medicare- Managed Care SELF PAY NO INSURANCE SELF PAY NO INSURANCE Effective for all dates [place] Self Pay ESSENCE MEDICARE ESSENCE MEDICARE ADV HMO/POS [id number] Effective for all dates [address] [place] [address] Medicare- Managed Care SELF PAY NO INSURANCE SELF PAY NO INSURANCE Effective for all dates [place] Self Pay ESSENCE MEDICARE ESSENCE MEDICARE ADV HMO/POS [id number] Effective for all dates [address] [place] [address] Medicare- Managed Care SELF PAY NO INSURANCE SELF PAY NO INSURANCE Effective for all dates [place] Self Pay ESSENCE MEDICARE ESSENCE MEDICARE ADV HMO/POS [id number] Effective for all dates [address] [place] [address] Medicare- Managed Care SELF PAY NO INSURANCE SELF PAY NO INSURANCE Effective for all dates [place] Self Pay ESSENCE MEDICARE ESSENCE MEDICARE ADV HMO/POS [id number] Effective for all dates [address] [place] [address] Medicare- Managed Care SELF PAY NO INSURANCE SELF PAY NO INSURANCE Effective for all dates [place] Self Pay ESSENCE MEDICARE ESSENCE MEDICARE ADV HMO/POS [id number] Effective for all dates [address] [place] [address] Medicare- Managed Care SELF PAY NO INSURANCE SELF PAY NO INSURANCE Effective for all dates [place] Self Pay ESSENCE MEDICARE ESSENCE MEDICARE ADV HMO/POS [id number] 04/08/2021-Prese nt ESSENCE CLAIMS [address] [place] [address] Medicare- Managed Care ESSENCE MEDICARE ESSENCE MEDICARE ADV HMO/POS [id number] 04/08/2021-Prese nt ESSENCE CLAIMS [address] [place] [address] Medicare- Managed Care ESSENCE MEDICARE ESSENCE MEDICARE ADV HMO/POS [id number] 04/08/2021-Prese nt ESSENCE CLAIMS [address] [place] [address] Medicare- Managed Care Care Teams Project Engineer Chemicals Relationship Specialty Start Date End Date Davian Mehta DO [address] [place] [address] PCP - General 01/17/22 Jarrod Eason MD Internal Medicine 09/06/10
--- OUTSIDE RECORDS SUMMARY | 2024-06-20 15:55 | XMS_ITS | Continuity of Care Document ---
Author Organization [facility] Address [address] [place] [address] Phone Care Team Providers Care Vp & General Counsel Name Role Phone Eleazar PT,MPT,ATC, Jr Unavailable [...] Diagnoses Date Provider Providers Copied on Encounter [facility], [id number], tel:[phone] [place] No Information 4 Eleazar Swan [place], [place]. [facility], [id number], tel:[phone] [place] No Information 4 Eleazar [place]. Referring Provider: Davian Mehta, [address], [place], [address]. tel:[phone] [facility] [address] [address], [place], [place], [id number], tel:[phone] [place] Pain in left hipLow back painOth symptoms and signs involving the musculoskeletal systemOth symptoms and signs involving the dgstv sys and abdomenUnspecif ied abnormalities of gait and mobilityOther abnormalities of gait and mobilityAcquire d deformity of pelvis 8 Eleazar Swan , [place], [place]. [facility], [place], [place], [id number], tel:[phone] [place] Pain in left hipLow back painOth symptoms and signs involving the musculoskeletal systemOth symptoms and signs involving the dgstv sys and abdomenUnspecif ied abnormalities of gait and mobilityOther abnormalities of gait and mobilityAcquire d deformity of pelvis 8 Eleazar Swan [place], [place]. [facility], [place], [place], [id number], tel:[phone] [place] Pain in left hipLow back painOth symptoms and signs involving the musculoskeletal systemOth symptoms and signs involving the dgstv sys and abdomenUnspecif ied abnormalities of gait and mobilityOther abnormalities of gait and mobilityAcquire d deformity of pelvis 8 Eleazar Swan [place], [place]. [facility], [place], [place], [id number], tel:[phone] [place] Pain in left hipLow back painOth symptoms and signs involving the musculoskeletal systemOth symptoms and signs involving the dgstv sys and abdomenUnspecif ied abnormalities of gait and mobilityOther abnormalities of gait and mobilityAcquire d deformity of pelvis 8 Eleazar Swan [place], [place]. [facility], [place], [place], [address], tel:[phone] [place] Pain in left hipLow back painOth symptoms and signs involving the musculoskeletal systemOth symptoms and signs involving the dgstv sys and abdomenUnspecif ied abnormalities of gait and mobilityOther abnormalities of gait and mobilityAcquire d deformity of pelvis 8 Selma Urena. . Family History Family Member Type Diagnosis Age At Onset No Information Payers Payer name Insurance type Covered alliance party ID Delaney juarez(s) [facility] Insurance [id number] Social History Type Description Quantity Date Captured [...]
--- OUTSIDE RECORDS SUMMARY | 2024-06-20 15:55 | XMS_ITS | CONTINUITY OF CARE DOCUMENT ---
Author Name freddie frazier Address Unknown Organization [facility] Address [address] [place] [address] Phone [phone] Care Team Providers Care Lawn Service Manager Name Role Phone freddie frazier Unavailable Unavailable
--- OUTSIDE RECORDS SUMMARY | 2024-06-20 15:55 | XMS_ITS ---
Author Organization [facility] As [employer] [facility] Address [address] [facility] [address] [address] [place] [address] Care Team Providers Care Shop Teacher Name Role Phone Davian Mehta DO Primary Care Provider UnavailDayna Padgett Unavailable [phone] Emory Coleman Unavailable [phone] Social History Sex Assigned At : Social History Observation Description Sex Assigned At Female Encounters Encounter Location Date Provider Diagnosis [facility] [employer] [facility] [address] [facility] [address] [place] [address] 05/22/2024 Emory Coleman Plan Of Treatment Next Appt Details Provider Name:Dayna Giang, 08/27/2024 01:30:00 PM, [address], [facility] [address] [address], [place], [address], Progress Notes * Tali LAND MDOB:[birth year] (88 yo F)Acc No.[id number]:05/22/2024 Patient: Matilde CAMILOCORYTali :1935 A ge:88 Y S ex:Female Address:[address] [place] [place], [address] * true * Date: Generated for Printi ng/Faxing/eTransmitting on: 0 06/20/2024 03:54 PM CDT
--- OUTSIDE RECORDS SUMMARY | 2024-06-20 15:55 | XMS_ITS | Continuity of Care Document ---
Author Organization [facility] Address [address] [place] [address] [address] [place] [address] Phone Care Team Providers Care Associate Director Data & Analytics Name Role Phone Salvatore Bustos MD Unavailable Unavailable Procedures Procedure Date CATARACT SURG W/IOL, 1 STAGE CATARACT SURG W/IOL, 1 STAGE OFFICE/OUTPATIENT VISIT, [facility] Advance Directives Directive Yes / No Effective Date File Name No Information Encounters Encounter Description Practice Location Reason(s) For Visit Diagnoses Date Provider Providers Copied on Encounter [facility], [address] [place] [address], [address] [place] [address], tel:[phone] [address] [place] [address] No Information 3 Juli Chase. [address] [place] [address], [facility] [address], [place], [address], [place]. tel:[phone] Referring Provider: Salvatore Blum, [address] [place] [address] [address], [place], [address]. tel:[phone] [facility], [address] [place] [address], [id number], tel:[phone] [address] [place] [address] No Information 3 Juli Chase. [address] [place] [address], [address], [address], [place]. tel:[phone] Referring Provider: Salvatore Blum, [address] [place] [address] [address], [place], [address]. tel:[phone] OFFICE/OUTPA TIENT VISIT, [facility], [address] [place] [address], [id number], tel:[phone] No Information 3 Juli Chase. [address] [facility], [address], [place], [address], . tel:[phone] Referring Provider: Salvatore Blum, [address] [facility] [address], [place], [place], [facility]. tel:[phone] Family History Family Member Type Diagnosis Age At Onset No Information Payers Payer name Insurance type Covered republican ID Authoriza tion(s) No Information Social History [...]
--- OUTSIDE RECORDS SUMMARY | 2024-06-20 15:55 | XMS_ITS ---
Author Organization [facility] [employer] Address [address] [place] [address] Care Team Providers Care Cable Splicer Helper Name Role Phone Davian Mehta DO Primary Care Provider Dayna Lantigua Unavailable [phone] Allergies Allergen (clinical drug ingredient) Drug/Non Drug [...] 06/04/2024 Encounters Encounter Location Date Provider Diagnosis [facility] [employer] [facility] [address] [place] [address] 06/04/2024 Dayna Giang Major depression wit h [...] f/u Provider Name:Dayna Giang, 08/27/2024 01:30:00 PM, [address] [facility], [facility] [address], [place], [address], Progress Notes * Tali LAND MDOB:[birth year] (88 yo F)Acc No.[id number]:06/04/2024 Patient: Tali EASLEY Provider: KRISTA DONAHUE :1935 A ge:88 Y S ex:Female Date:06/04/2024 Address:[address] [place], [place] [address] Pcp:Davian Mehta DO Subjective: * Chief Complaints: [...] Social hx: Has 5 children. Resides at [facility]. Medical hx: Mild stroke, HTN. Past psychiatric hx- Past IP admissions/IOP/PHP: [place] in 2023 for one week Previous suicide [...] a nxiety, irritability, forgetfullness . Fran oliveira [facility] for details. * Medical History: * Medications: [...] effects of psychotropic medications. -Crisis prevention hotline 168. * Procedure Codes: G 8783 NORMAL BP READING DOC F/U NOT [id number] MOST RECENT SYSTOLIC BP < 140MM STR0027 MOST RECENT DIASTOLIC BP < 90MM SHL0250 VISIT COMPLEXITY INHERENT TO ONGOING CARE RELATED TO A PATIENT'S SINGLE, SERIOUS CONDITION OR A COMPLEX CONDITION * Follow Up: 3 Months (Reason: med f/u) * Billing Information: * Visit Code: 96927 OFFICE OUTPATIENT VISIT 25 MINUTES DETAILED HISTORY AND EXAM/MODERATE MEDICAL DECISION MAKING. * Procedure Codes: G8783 NORMAL BP READING DOC F/U NOT RQR. G8752 MOST RECENT SYSTOLIC BP < 140MM HG. G8754 MOST RECENT DIASTOLIC BP < 90MM HG. G2211 VISIT COMPLEXITY INHERENT TO ONGOING CARE RELATED TO A PATIENT'S SINGLE, SERIOUS CONDITION OR A COMPLEX CONDITION. * MOBILE MECHANIC SUPERVISOR Sign off status: Completed true * Provider: KRISTA DONAHUE Date: 06/04/2024 Generated for Manuel leon/Josh/Hernandez on: 0 06/20/2024 03:55 PM CDT History and Physical Notes * HPI [...] Social hx: Has 5 children. Resides at [facility]. Medical hx: Mild stroke, HTN. Past psychiatric hx- Past IPBH admissions/IOP/PHP: [place] in 2023 for one week Previous suicide [...]
--- OUTSIDE RECORDS SUMMARY | 2024-06-20 15:55 | XMS_ITS | Clinical Summary ---
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 Advance Directives For more information, please contact: [phone] * Full Code (Latest Code Status on File) Date Activated Date Inactivated Comments 11/09/2021 6:48 AM 11/11/2021 6:43 PM Care Teams Oncology Technician Relationship Specialty Start Date End Date Davian Mehta DO PCP - General Family Medicine 07/05/22
--- OUTSIDE RECORDS SUMMARY | 2024-06-20 15:55 | XMS_ITS | Referral Summary ---
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
[2024-06-20 15:56] VITALS: BMI 24.5
[2024-06-20] MEDS: diazePAM INJ (*CRX) 10 MG/2 ML SYRINGE 5 MG IV PUSH ×2 (16:27→23:46)
--- NOTE | 2024-06-20 17:21 | PC.NURSE ---
Report given to NOELLE Le with 3 med-surg. Patient to be moved to room 318 for comfort care.
[2024-06-20] MEDS: HYDROmorphone HCL INJ (*CRX) 1 MG/ML SYR 0.5 MG IV PUSH (17:35)
[2024-06-20 18:32] VITALS: PULSE 49; RESP 14
[2024-06-20] MEDS: HYDROmorphone HCL/PF (*CRX) 50 MG in SODIUM CHLORIDE 0.9% IV 95 ML IV CONT (18:32)
[2024-06-21] MEDS: GLYCOPYRROLATE INJ (*SP) 0.2 MG/ML VIAL 0.1 MG IV PUSH (03:10)
[2024-06-21] MEDS: diazePAM INJ (*CRX) 10 MG/2 ML SYRINGE 5 MG IV PUSH ×5 (03:55→23:33)
[2024-06-21] MEDS: HYDROmorphone HCL INJ (*CRX) 1 MG/ML SYR 0.5 MG IV PUSH (05:22)
[2024-06-21 07:00] VITALS: PULSE 50; RESP 12
--- NOTE | 2024-06-21 09:38 | P.HP_ITS ---
H&P: HPI History of Present Illness Date/Time: 06/21/24 09:38 Chief Complaint: Uncontrolled agitation and dyspnea Narrative: 88-year-old female with history of hypertrophic obstructive cardiomyopathy is several years status post myomectomy and was residing at [facility] when she was found unresponsive. EMS found her to be in ventricular tachycardia. Amiodarone administered on route to the emergency department. She became alert when VT resolved. However, it recurred. She was placed on a lidocaine drip. Transferred ICU. Transfer was being arranged to tertiary care facility but daughter/POA stated that her mother did not want any further invasive procedures. Therefore because of her cardiac condition, poor functional status, and other comorbidities she opted for inpatient hospice service to control agitation and dyspnea. Review of Systems Review of Systems: ROS unobtainable: Yes unobtainable due to medical condition [facility] Past Medical History Medical History (Updated 06/21/24 @ 09:54 by Oniel Brian MD) Obstructive hypertrophic cardiomyopathy Carotid stenosis Lichenified eczema TIA (transient ischemic attack) Dementia Prediabetes Vitamin D deficiency HTN (hypertension) CVA (cerebral vascular accident) Hyperlipidemia Chronic kidney disease, stage 3 (moderate) Surgical History Surgical History History of lumpectomy of right breast 07/2020 History of partial nephrectomy Partial left nephrectomy due to the renal cell carcinoma History of myomectomy Septal myomectomy 2005 Hx of CABG 2 vessel 2009 Family History Family History Sibling Patient's sister is in good health Family history of malignant melanoma Mother Colon cancer Unknown Hypertension Social History Social History Social History: The patient resides at [facility]. She raised 4 children. Code status: DNR/DNI Healthcare power of audio narrator: Julianne [place] (daughter) Smoking status: Never smoker Second hand tobacco smoke exposure: No Alcohol intake: never Substance use: never Substance use type: does not use Do You Feel Safe in your Home?: Yes Lack of Transportation: No Lack of Food: Never True Current Housing: I Do Not Have Housing Concerned About Future Housing: No Difficulty Paying Gas/Electric Bills: No Difficulty Paying for Meds: No Currently Unemployed: No Education: High School Diploma/GED Difficulty w/ Childcare or Family Care: No Living arrangements: other Additional living arrangements comments: [facility]DEPEND[facility]IV[facility] AT [facility] care concerns: No Meds Home Medications and Allergies Home Medications ?Medication ?Instructions ?Recorded ?Confirmed ?Type triamcinolone acetonide 0.1 % 1 applic topical BID #80 grams 09/25/22 06/20/24 Rx topical cream clopidogrel 75 mg tablet 75 mg PO DAILY #90 tabs 01/11/23 06/20/24 Rx metoprolol tartrate 50 mg tablet 50 mg PO DAILY #90 tabs 05/20/23 06/20/24 Rx pravastatin 20 mg tablet 20 mg PO DAILY #90 tabs 07/10/23 06/20/24 Rx tramadol 50 mg tablet 50 mg PO Q6H PRN pain #12 tabs 07/10/23 06/20/24 Rx hydroxyzine pamoate 25 mg capsule See Rx Instructions .Route 11/14/23 06/20/24 History .COMPLEX PRN Anxiety acetaminophen 325 mg tablet 650 mg PO Q4H PRN Pain 02/28/24 06/20/24 History amlodipine 10 mg tablet 10 mg PO DAILY 02/28/24 06/20/24 History chlorthalidone 25 mg tablet 25 mg PO DAILY 02/28/24 06/20/24 History magnesium hydroxide 30 ml PO DAILY PRN Constipation 02/28/24 06/20/24 History nitroglycerin 0.4 mg sublingual 0.4 mg sublingual Q5MIN PRN Chest 02/28/24 06/20/24 Rx tablet (Nitrostat) Pain #21 tabs quetiapine 25 mg tablet 12.5 mg PO HS 02/28/24 06/20/24 History quetiapine 25 mg tablet 25 mg PO HS 02/28/24 06/20/24 History trazodone 50 mg tablet 50 mg PO HS PRN Insomnia 02/28/24 06/20/24 History cephalexin 500 mg capsule 500 mg PO Q8H #30 caps 03/27/24 06/20/24 Rx citalopram 20 mg tablet 20 mg PO DAILY 06/05/24 06/20/24 History divalproex 125 mg tablet,delayed 125 mg PO BID 06/05/24 06/20/24 History release (Depakote) Allergies Allergy/AdvReac Type Severity Reaction Status Date / Time oxycodone (From Percocet) AdvReac Hallucinati Verified 06/20/24 16:00 ng Vital Signs Vital Signs - 24 hr 06/20/24 18:32 06/20/24 20:05 Pulse Rate 49 L Respiratory Rate 14 Oxygen Delivery Room Air Exam Narrative: HEENT: Pharyngeal mucosa dry. NECK: No JVD. CHEST: Coarse to auscultation. Normal effort. HEART: NL S1/S2, regular, 2/6 LEONARD LSB and RUSB ABDOMEN: BShypoactive, soft, nontender, no mass, no bruits EXTREMITIES: No cyanosis, edema, or clubbing NEUROLOGIC: CN intact symmetric to inspection. MUSCULOSKELETAL: No gross deformity to visual inspection. PSYCH: Unresponsive to verbal or tactile stimuli. Assessment and Plan Assessment and plan (1) Hospice care: Code(s): Z51.5 - Encounter for palliative care Status: Acute Assessment and Plan: * Meets inpatient hospice criteria due to recurrent content is IV hydromorphone for control of dyspnea and scheduled IV diazepam and phenobarbital for control of agitation. * PRN palliative regimen ordered. * 06/20/2024 discussed care and prognosis with daughter, Julianne, who is also POA, at bedside. (2) Obstructive hypertrophic cardiomyopathy: Code(s): I42.1 - Obstructive hypertrophic cardiomyopathy Status: Acute (3) Ventricular tachycardia: Code(s): I47.20 - Ventricular tachycardia, unspecified Status: Acute (4) Syncope, cardiogenic: Code(s): R55 - Syncope and collapse Status: Acute (5) Presence of aortocoronary bypass graft: Code(s): Z95.1 - Presence of aortocoronary bypass graft Status: Chronic (6) Chronic kidney disease, stage 3 (moderate): Qualifiers: Chronic kidney disease stage 3 subtype: stage 3a (GFR 45-59) Qualified Code(s): N18.31 - Chronic kidney disease, stage 3a Code(s): N18.3 - Chronic kidney disease, stage 3 (moderate) Status: Chronic (7) SOB (shortness of breath): Code(s): R06.02 - Shortness of breath Status: Acute
[2024-06-21 18:23] VITALS: PULSE 52; RESP 7
[2024-06-21] MEDS: HYDROmorphone HCL/PF (*CRX) 50 MG in SODIUM CHLORIDE 0.9% IV 95 ML IV CONT (18:23)
[2024-06-21 20:21] VITALS: BP 119/72; PULSE 52; RESP 6; TEMP 36.2; O2SAT 97
[2024-06-21 21:00] VITALS: O2SAT 97
[2024-06-22] MEDS: diazePAM INJ (*CRX) 10 MG/2 ML SYRINGE 5 MG IV PUSH ×3 (05:30→17:08)
[2024-06-22 08:00] VITALS: PULSE 98; RESP 6; O2SAT 91
[2024-06-22 08:26] VITALS: O2SAT 91
[2024-06-22 13:12] VITALS: BP 108/52; PULSE 98; RESP 18
[2024-06-22 18:33] VITALS: PULSE 56; RESP 16
[2024-06-22] MEDS: HYDROmorphone HCL/PF (*CRX) 50 MG in SODIUM CHLORIDE 0.9% IV 95 ML IV CONT (18:33)
[2024-06-22 20:00] VITALS: PULSE 130; RESP 10; TEMP 35.7; O2SAT 90
--- NOTE | 2024-06-22 20:22 | P.PNIM_ITS ---
Progress Note: A&P Assessment and Plan (1) Hospice care: Code(s): Z51.5 - Encounter for palliative care Status: Acute Assessment and Plan: * Meets inpatient hospice criteria due to recurrent content is IV hydromorphone for control of dyspnea and scheduled IV diazepam and phenobarbital for control of agitation. * PRN palliative regimen ordered. * 06/21/2024 discussed care and prognosis with daughter, Julianne, who is also POA, at bedside. * 06/22/2024 continues to require continuous IV hydromorphone and scheduled IV diazepam and phenobarbital for symptoms control, palliative sedation. (2) Obstructive hypertrophic cardiomyopathy: Code(s): I42.1 - Obstructive hypertrophic cardiomyopathy Status: Acute (3) Ventricular tachycardia: Code(s): I47.20 - Ventricular tachycardia, unspecified Status: Acute (4) Syncope, cardiogenic: Code(s): R55 - Syncope and collapse Status: Acute (5) Presence of aortocoronary bypass graft: Code(s): Z95.1 - Presence of aortocoronary bypass graft Status: Chronic (6) Chronic kidney disease, stage 3 (moderate): Qualifiers: Chronic kidney disease stage 3 subtype: stage 3a (GFR 45-59) Qualified Code(s): N18.31 - Chronic kidney disease, stage 3a Code(s): N18.3 - Chronic kidney disease, stage 3 (moderate) Status: Chronic (7) SOB (shortness of breath): Code(s): R06.02 - Shortness of breath Status: Acute Subjective Date/time seen: 06/22/24 20:22 Interval history: Remains sedated and comfortable on current regimen. Review of Systems Review of Systems: ROS unobtainable: Yes unobtainable due to medical condition Exam Narrative: HEENT: Pharyngeal mucosa dry. NECK: No JVD. CHEST: Coarse to auscultation. Normal effort. HEART: NL S1/S2, regular, 2/6 LEONARD LSB and RUSB ABDOMEN: BShypoactive, soft, nontender, no mass, no bruits EXTREMITIES: No cyanosis, edema, or clubbing NEUROLOGIC: CN intact symmetric to inspection. MUSCULOSKELETAL: No gross deformity to visual inspection. PSYCH: Unresponsive to verbal or tactile stimuli. Objective Data Vital Signs Vital Signs: Vital Signs - 24 hr 06/21/24 21:00 06/22/24 08:00 06/22/24 08:26 Pulse Rate 98 Respiratory Rate 6 L Blood Pressure Pulse Oximetry 97 91 91 Oxygen Delivery Nasal Cannula Nasal Cannula Oxygen Flow Rate 2 2 06/22/24 13:12 06/22/24 18:33 06/22/24 18:33 Pulse Rate 98 56 L 56 L Respiratory Rate 18 16 16 Blood Pressure 108/52 L Pulse Oximetry Oxygen Delivery Oxygen Flow Rate Intake/Output Intake/Output: Intake & Output 06/19/24 06/20/24 06/21/24 06/22/24 23:59 23:59 23:59 23:59 Intake Total 40.0 24.2 Balance 40.0 24.2 Meds/Results Medications: Active Medications Generic Name Dose Route Start Last Admin Trade Name Freq PRN Reason Stop Dose Admin Artificial Tears 1 - 2 drop 06/20/24 16:20 Artificial Tears Ophth Soln 15 Ml Bottle EACH EYE Q12H PRN Dry Eye(s) Bisacodyl 10 mg 06/20/24 16:20 Bisacodyl 10 Mg Suppository RECTAL DAILY PRN Constipation Diazepam 5 mg 06/20/24 18:00 06/22/24 17:08 Diazepam Inj (*Crx) 10 Mg/2 Ml Syringe IV PUSH 5 mg Q6HR KAYLENE Administration Diazepam 5 mg 06/20/24 16:15 06/21/24 03:55 Diazepam Inj (*Crx) 10 Mg/2 Ml Syringe IV PUSH 5 mg Q3H PRN Administration RESTLESSNESS Glycopyrrolate 0.1 mg 06/20/24 16:20 06/21/24 03:10 Glycopyrrolate Inj (*Sp) 0.2 Mg/Ml Vial IV PUSH 0.1 mg Q4H PRN Administration EXCESS secretions Hydromorphone HCl 0.5 mg 06/20/24 16:13 06/21/24 05:22 Hydromorphone Hcl Inj (*Crx) 1 Mg/Ml Syr IV PUSH 0.5 mg Q2H PRN Administration PAIN/DYSPNEA Hydromorphone HCl 50 mg/ 100 mls @ 1 mls/hr 06/20/24 16:15 06/22/24 18:33 Sodium Chloride IV CONT 0.5 mg/hr .Q24H KAYLENE 1 mls/hr Administration 0.5 MG/HR Phenobarbital Sodium 65 mg 06/20/24 19:36 Phenobarbital Sodium (*Crx) 130 Mg/Ml Vial IV PUSH Q8HR PRN Agitation Prochlorperazine Edisylate 10 mg 06/20/24 16:20 Prochlorperazine Edisylate 10 Mg/2 Ml Vial IV PUSH Q6H PRN Nausea And Vomiting
[2024-06-23] MEDS: diazePAM INJ (*CRX) 10 MG/2 ML SYRINGE 5 MG IV PUSH ×4 (00:15→17:52)
[2024-06-23 08:20] VITALS: PULSE 130; RESP 10; O2SAT 90
[2024-06-23 13:00] VITALS: BP 119/66; PULSE 63; RESP 18; TEMP 36.6; O2SAT 100
--- NOTE | 2024-06-23 16:13 | P.PNIM_ITS ---
Progress Note: A&P Assessment and Plan (1) Hospice care: Code(s): Z51.5 - Encounter for palliative care Status: Acute Assessment and Plan: * Meets inpatient hospice criteria due to recurrent content is IV hydromorphone for control of dyspnea and scheduled IV diazepam and phenobarbital for control of agitation. * PRN palliative regimen ordered. * 06/21/2024 discussed care and prognosis with daughter, Julianne, who is also POA, at bedside. * 06/22/2024 continues to require continuous IV hydromorphone and scheduled IV diazepam and phenobarbital for symptoms control, palliative sedation. * 06/22/2024 continues to require continuous IV hydromorphone and scheduled IV diazepam and phenobarbital for symptoms control, palliative sedation. Showing decline with irregular tachycardia. Discussed with family discontinuation of supplemental oxygen and they wish to proceed. (2) Obstructive hypertrophic cardiomyopathy: Code(s): I42.1 - Obstructive hypertrophic cardiomyopathy Status: Acute (3) Ventricular tachycardia: Code(s): I47.20 - Ventricular tachycardia, unspecified Status: Acute (4) Syncope, cardiogenic: Code(s): R55 - Syncope and collapse Status: Acute (5) Presence of aortocoronary bypass graft: Code(s): Z95.1 - Presence of aortocoronary bypass graft Status: Chronic (6) Chronic kidney disease, stage 3 (moderate): Qualifiers: Chronic kidney disease stage 3 subtype: stage 3a (GFR 45-59) Qualified Code(s): N18.31 - Chronic kidney disease, stage 3a Code(s): N18.3 - Chronic kidney disease, stage 3 (moderate) Status: Chronic (7) SOB (shortness of breath): Code(s): R06.02 - Shortness of breath Status: Acute Subjective Date/time seen: 06/23/24 16:13 Interval history: Remains sedated and comfortable on current regimen. Review of Systems Review of Systems: ROS unobtainable: Yes unobtainable due to medical condition Exam Narrative: HEENT: Pharyngeal mucosa dry. NECK: No JVD. CHEST: Coarse to auscultation. Normal effort. HEART: NL S1/S2, irregularly irregular tachycardia, 2/6 LEONARD LSB and RUSB ABDOMEN: BShypoactive, soft, nontender, no mass, no bruits EXTREMITIES: No cyanosis, edema, or clubbing NEUROLOGIC: CN intact symmetric to inspection. MUSCULOSKELETAL: No gross deformity to visual inspection. PSYCH: Unresponsive to verbal or tactile stimuli. Objective Data Vital Signs Vital Signs: Vital Signs - 24 hr 06/22/24 18:33 06/22/24 18:33 06/22/24 20:00 Temperature 96.2 F L Pulse Rate 56 L 56 L 130 H Respiratory Rate 16 16 10 L Blood Pressure Pulse Oximetry 90 Oxygen Delivery Oxygen Flow Rate 06/22/24 20:00 06/23/24 08:20 06/23/24 13:00 Temperature 97.9 F Pulse Rate 130 H 63 Respiratory Rate 10 L 18 Blood Pressure 119/66 Pulse Oximetry 90 90 100 Oxygen Delivery Nasal Cannula Nasal Cannula Oxygen Flow Rate 2 2 Intake/Output Intake/Output: Intake & Output 06/20/24 06/21/24 06/22/24 06/23/24 23:59 23:59 23:59 23:59 Intake Total 40.0 24.2 Balance 40.0 24.2 Meds/Results Medications: Active Medications Generic Name Dose Route Start Last Admin Trade Name Freq PRN Reason Stop Dose Admin Artificial Tears 1 - 2 drop 06/20/24 16:20 Artificial Tears Ophth Soln 15 Ml Bottle EACH EYE Q12H PRN Dry Eye(s) Bisacodyl 10 mg 06/20/24 16:20 Bisacodyl 10 Mg Suppository RECTAL DAILY PRN Constipation Diazepam 5 mg 06/20/24 18:00 06/23/24 12:43 Diazepam Inj (*Crx) 10 Mg/2 Ml Syringe IV PUSH 5 mg Q6HR KAYLENE Administration Diazepam 5 mg 06/20/24 16:15 06/21/24 03:55 Diazepam Inj (*Crx) 10 Mg/2 Ml Syringe IV PUSH 5 mg Q3H PRN Administration RESTLESSNESS Glycopyrrolate 0.1 mg 06/20/24 16:20 06/21/24 03:10 Glycopyrrolate Inj (*Sp) 0.2 Mg/Ml Vial IV PUSH 0.1 mg Q4H PRN Administration EXCESS secretions Hydromorphone HCl 0.5 mg 06/20/24 16:13 06/21/24 05:22 Hydromorphone Hcl Inj (*Crx) 1 Mg/Ml Syr IV PUSH 0.5 mg Q2H PRN Administration PAIN/DYSPNEA Hydromorphone HCl 50 mg/ 100 mls @ 1 mls/hr 06/20/24 16:15 06/22/24 18:33 Sodium Chloride IV CONT 0.5 mg/hr .Q24H KAYLENE 1 mls/hr Administration 0.5 MG/HR Phenobarbital Sodium 65 mg 06/20/24 19:36 Phenobarbital Sodium (*Crx) 130 Mg/Ml Vial IV PUSH Q8HR PRN Agitation Prochlorperazine Edisylate 10 mg 06/20/24 16:20 Prochlorperazine Edisylate 10 Mg/2 Ml Vial IV PUSH Q6H PRN Nausea And Vomiting
[2024-06-23 16:48] VITALS: PULSE 58; RESP 10
[2024-06-23] MEDS: HYDROmorphone HCL/PF (*CRX) 50 MG in SODIUM CHLORIDE 0.9% IV 95 ML IV CONT (16:48)
[2024-06-23 20:00] VITALS: PULSE 98; RESP 20; O2SAT 80
[2024-06-24] MEDS: diazePAM INJ (*CRX) 10 MG/2 ML SYRINGE 5 MG IV PUSH ×2 (00:11→05:03)
--- NOTE | 2024-06-24 09:03 | P.DN_ITS ---
Discharge Summary Date and Time Date of : 06/24/24 Time of : 05:08 Provider Pronounced By: 2 RNs Name of First RN That Pronounced: Colten Remy Name of Second RN That Pronounced: Michael Miller Probable Cause of Probable Cause of : congestive heart failure due to hypertrophic obstructive cardiomyopathy Summary Hospital Course: Admitted to inpatient hospice service due to dyspnea and agitation. Medications titrated and palliative sedation initiated with excellent symptom control. Mrs. Land peacefully. Additional Data Confirmation of as documented by pronouncing clinician: Pupillary Reflex, Palpable Pulses, Response to Stimuli, Heart Tones and Breath Sounds Name of Provider Notified: Brian Time Provider Notified: 05:55 Provider Requests Autopsy: No Family Requests Autopsy: No Investigations Director Notified: Yes Date [facility] Notified of : 06/24/24 Time [facility] Notified of : 05:37
== END 2024-06-24 07:57 | disposition expired | DRG 951 ==
LOC: ANHICU 15:53 → ANH3MEDSUR 17:46
PROVIDERS: Admitting Provider Internal Medicine; PCP Family Medicine; Visit Provider Internal Medicine
DX: Z51.5 Encounter for palliative care (principal); I42.1 Obstructive hypertrophic cardiomyopathy; I47.20 Ventricular tachycardia, unspecified; I12.9 Hypertensive chronic kidney disease with stage 1 through stage 4 chronic kidney disease, or unspecified chronic kidney disease; N18.30 Chronic kidney disease, stage 3 unspecified; I65.29 Occlusion and stenosis of unspecified carotid artery; R45.1 Restlessness and agitation; Z95.1 Presence of aortocoronary bypass graft
CPT/HCPCS: J1171; J1596; J3360